=== PATIENT | male | born 1955 | race Caucasian/White ===

== ENCOUNTER 2018-03-12 05:39 | Day surgery (SDC) | payer OTHER, SELFPAY ==
[2018-03-12] VITALS (9 sets, daily range): BP systolic 131–180; BP diastolic 74–110; PULSE 60–67; RESP 16–18; TEMP 36.3–36.6; O2SAT 93–99; BMI 29.0
--- NOTE | 2018-03-12 | IMM_PTH ---
PATIENT: KATARINA DEAN LOC: EN U#:[id number] AGE/SX: 62/M ROOM: RE03/12/[address]: Dr. Humble Nascimento MD : 1955 BED: DIS: 03/12/2018 SPEC #: [id number] RECD: 03/12/18 13:51 STATUS: BASSAM REMeryl #: [id number] LUIZ: 03/12/18 00:[address]: Humble Nascimento DEPT: IMMUNOHISTOCHEMISTRY RECD BY: Mayra Hussein ENTERED: 03/12/18 13:51 SP TYPE: IMMUNO OTHR DR: Dr. Mohit Richards MD Tissues: B - Stomach, NOS Procedures: H Pylori (initial) PHYSICIAN & INSTITUTION [place] [id number] SPECIMEN INFORMATION: Tissue Source: B - Gastric antrum biopsy Clinical Info: GERD Specimen Number: [id number] CPT code: 09583 METHODOLOGY: Deparaffinized sections of prefer/formalin-fixed tissue or PAP/DQ stained slides are incubated with monoclonal/polyclonal antibodies/oligonucleotide probes. Localization is made via biotin free immunoperoxidase method. Appropriate controls are performed and reacted as expected. Results on target cell population are indicated in the following table: RESULTS: ANTIBODY / CLONE RESULT Block B H Pylori (polyclonal) negative These tests were developed and their performance characteristics determined by [facility]. They may not have been cleared or approved by the U.S. Food and Drug Administration. The FDA has determined that such clearance or approval is not necessary. INTERPRETATION: B. Gastric antrum, biopsy: Negative for Helicobacter pylori organisms. SJ:audrey 03/17/18
--- NOTE | 2018-03-12 | COLBX_PTH ---
PATIENT: KATARINA DEAN LOC: EN U#:[id number] AGE/SX: 62/M ROOM: RE03/12/[address]: Dr. Humble Nascimento MD : 1955 BED: DIS: 03/12/2018 SPEC #: [id number] RECD: 03/12/18 13:24 STATUS: BASSAM REFUGIO #: [id number] LUIZ: 03/12/18 00:[address]: Humble Nascimento DEPT: SURGICAL PATHOLOGY RECD BY: Dick Mcmahon ENTERED: 03/12/18 13:25 SP TYPE: COLON BX OTHR DR: Dr. Mohit Richards MD Tissues: A - Duodenum, NOS B - Gastric mucous membrane C - Gastric fundus D - Esophageal mucous membrane E - Esophageal mucous membrane F - Esophageal mucous membrane Procedures: Special Stain Group II Surgery Specimen Level IV Alcian Blue/PAS (control) HEADER OPERATION: EGD (MOD) PRE-OP DIAGNOSIS: GERD TISSUE SUBMITTED: A - Biopsy duodenum, B - Biopsy gastric antrum, H. pylori and path, C - Biopsy fundic polyp, D - Biopsy distal esophagus, E - Distal esophageal polyp #1, F - Biopsy distal esophageal polyp #2 MICROSCOPIC DIAGNOSIS A. Duodenum, biopsy: Fragments of duodenal mucosa with Adriane gland hyperplasia. B. Gastric antrum, biopsy: Mild gastritis. C. Fundic polyp, biopsy: Fragments of gastric mucosa with focal changes consistent with fundic gland polyp. D. Distal esophagus, biopsy: Fragments of squamous epithelium with chronic inflammation. A few detached minute fragments of gastric epithelium, negative for intestinal metaplasia (goblet cell metaplasia). See comment. E. Distal esophageal polyp #1, biopsy: Squamous papilloma. F. Distal esophageal polyp #2, biopsy: Fragments of squamous epithelium with chronic inflammation and changes consistent with gastroesophageal reflux disease. See comment. SJ:audrey 03/13/18 COMMENT B. The results of immunohistochemistry for Helicobacter pylori will be reported separately ([id number]). D. Alcian blue/PAS stain with matched control is used in the evaluation of the specimen. F. Obvious changes consistent with polyp are not seen. Case has been reviewed in consultation with Dr. Stephens who concurs with the above diagnosis. IDC:AM MICROSCOPIC DESCRIPTION Slides are reviewed. B. The specimen shows fragments of gastric mucosa with chronic inflammatory cell infiltrates in the lamina propria consisting of lymphocytes and plasma cells, consistent with mild chronic gastritis. GROSS DESCRIPTION A - Received in fixative is one container labeled with the patient's name and designated biopsy duodenum. The specimen consists of two irregular fragments of light schaefer soft tissue that in aggregate measure 0.5 x 0.2 x 0.1 cm. The specimen is totally submitted in one cassette. B - Received in fixative is one container labeled with the patient's name and designated biopsy gastric antrum. The specimen consists of one irregular fragment of light schaefer soft tissue that measures 0.7 x 0.3 x 0.1 cm. The specimen is totally submitted in one cassette. C - Received in fixative is one container labeled with the patient's name and designated fundic polyp. The specimen consists of multiple irregular fragments of light schaefer soft tissue that in aggregate measure 0.8 x 0.4 x 0.1 cm. The specimen is totally submitted in one cassette. D - Received in fixative is one container labeled with the patient's name and designated biopsy distal esophagus. The specimen consists of multiple irregular fragments of light schaefer soft tissue that in aggregate measure 0.5 x 0.5 x 0.1 cm. The specimen is totally submitted in one cassette. E - Received in fixative is one container labeled with the patient's name and designated distal esophageal polyp #1. The specimen consists of a piece of schaefer-pink polyp measuring 0.6 x 0.6 x 0.4 cm. The specimen is totally submitted in one cassette. F - Received in fixative is one container labeled with the patient's name and designated distal esophageal polyp #2. The specimen consists of multiple irregular fragments of light schaefer soft tissue that in aggregate measure 1 x 0.6 x 0.1 cm. The specimen is totally submitted in one cassette. / MARIANA:audrey 03/12/18 TC:3 CPT: 08235 x6, 11444
--- NOTE | 2018-03-12 07:01 | OP.ENDO_ITS ---
Patient Name: Mark Baldwin Procedure Date: 03/12/2018 6:08 AM Date of : 1955 Age: 62 Procedure: Upper GI endoscopy Indications: Suspected esophageal reflux Providers: Humble Nascimento MD Referring MD: Humble Nascimento MD Medicines: Midazolam 4 mg IV, Meperidine 100 mg IV Complications: No immediate complications. Procedure: Pre-Anesthesia Assessment: - Prior to the procedure, a History and Physical was performed, and patient medications and allergies were reviewed. The patient's tolerance of previous anesthesia was also reviewed. The risks and benefits of the procedure and the sedation options and risks were discussed with the patient. All questions were answered, and informed consent was obtained. Prior Anticoagulants: The patient has taken no previous anticoagulant or antiplatelet agents. ASA Grade Assessment: II - A patient with mild systemic disease. After reviewing the risks and benefits, the patient was deemed in satisfactory condition to undergo the procedure. After obtaining informed consent, the endoscope was passed under direct vision. Throughout the procedure, the patient's blood pressure, pulse, and oxygen saturations were monitored continuously. The gastroscope was introduced through the mouth, and advanced to the second part of duodenum. The upper GI endoscopy was accomplished without difficulty. The patient tolerated the procedure well. Moderate Sedation: Moderate (conscious) sedation was personally administered by the endoscopist. The following parameters were monitored: oxygen saturation, heart rate, blood pressure, and response to care. Total physician intraservice time was 15 minutes. Scope In: 6:32:40 AM Scope Out: 6:48:44 AM Total Procedure Duration Time 0 hours 16 minutes 4 seconds Findings: The Z-line was irregular and was found 40 cm from the incisors. Biopsies were taken with a cold forceps for histology. Consistent with reflux esophagitis A small hiatal hernia was present. Two polyps with no bleeding were found 39 cm from the incisors. Polypectomy was attempted, initially using a hot snare. Polyp resection was incomplete with this device. This intervention then required a different device and polypectomy technique. The polyp was removed with a hot snare. Resection and retrieval were complete. To prevent bleeding post-intervention, one hemostatic clip was successfully placed. There was no bleeding at the end of the procedure. Biopsies were taken with a cold forceps for histology. Diffuse mildly erythematous mucosa without bleeding was found in the gastric antrum. Biopsies were taken with a cold forceps for histology. Multiple sessile polyps with no bleeding and no stigmata of recent bleeding were found in the gastric fundus. Biopsies were taken with a cold forceps for histology. Diffuse mildly erythematous mucosa was found in the first portion of the duodenum. Biopsies were taken with a cold forceps for histology. Impression: - Z-line irregular, 40 cm from the incisors. Biopsied. Consistent with reflux esophagitis - Small hiatal hernia. - Esophageal polyp(s) were found. Resected and retrieved. Clip was placed. Biopsied. One pedunculated, resected with snare and treated with clip. One sessile and treated with cold forecep biopsy - Erythematous mucosa in the antrum. Biopsied. - Multiple gastric polyps. Biopsied. - Erythematous duodenopathy. Biopsied. Recommendation: - Discharge patient to home. - Resume previous diet. - Continue present medications. - Telephone my office for pathology results in 1 week. - Repeat upper endoscopy in 1 year for surveillance. Procedure Code(s): --- Professional --- 13970, Esophagogastroduodenoscopy, flexible, transoral; with removal of tumor(s), polyp(s), or other lesion(s) by snare technique 93456, 59, Esophagogastroduodenoscopy, flexible, transoral; with biopsy, single or multiple 43697, 59, Moderate sedation services provided by the same physician or other qualified health rn primary care performing the diagnostic or therapeutic service that the sedation supports, requiring the presence of an independent trained observer to assist in the monitoring of the patient's level of consciousness and physiological status; initial 15 minutes of intraservice time, patient age 5 years or older Diagnosis Code(s): --- Professional --- K22.8, Other specified diseases of esophagus K44.9, Diaphragmatic hernia without obstruction or gangrene K31.89, Other diseases of stomach and duodenum K31.7, Polyp of stomach and duodenum CPT copyright 2017 [employer]. All rights reserved. The codes documented in this report are preliminary and upon mortgage underwriter review may be revised to meet current compliance requirements. Humble Nascimento MD 03/12/2018 7:00:56 AM This report has been signed electronically. Number of Addenda: 0 Note Initiated On: 03/12/2018 6:08 AM
== END 2018-03-12 07:40 | disposition home or self-care (01) ==
LOC: EN 05:40 → AC 05:42
PROVIDERS: Family Provider Family Medicine; PCP Family Medicine; Referring Provider Surgery; Visit Provider Surgery
PROC: (CPT 43239; principal; 2018-03-12 06:25)
DX: D13.0 Benign neoplasm of esophagus (principal); K29.70 Gastritis, unspecified, without bleeding; K44.9 Diaphragmatic hernia without obstruction or gangrene; K31.7 Polyp of stomach and duodenum; K21.9 Gastro-esophageal reflux disease without esophagitis; K43.2 Incisional hernia without obstruction or gangrene; M62.08 Separation of muscle (nontraumatic), other site; M19.90 Unspecified osteoarthritis, unspecified site; E78.00 Pure hypercholesterolemia, unspecified; G47.33 Obstructive sleep apnea (adult) (pediatric); Z79.899 Other long term (current) drug therapy
CPT/HCPCS: 43239; 43251; 88305; 88313; 88342; 99152; 99153; J7120

== ENCOUNTER 2018-04-07 05:37 | Day surgery (SDC) | payer OTHER, SELFPAY ==
--- NOTE | 2018-04-02 08:11 | EKG12_ITS ---
Test Reason : PRE OP Blood Pressure : / mmHG Vent. Rate : 058 BPM Atrial Rate : 058 BPM P-R Int : 144 ms QRS Dur : 102 ms QT Int : 424 ms P-R-T Axes : 050 040 008 degrees QTc Int : 416 ms Sinus bradycardia Otherwise normal ECG Confirmed by SIDNEY SHAFER, SKIP ([id number]), editorial specialist DESTINY SAVAGE ([id number]) on 04/09/2018 1:08:48 PM Referred By: Humble Nascimento Confirmed By:SKIP LITTLE MD
[2018-04-02 08:57] LABS: Hematocrit 48.1 % (40-54); Hemoglobin 16.6 g/dl (13.0-16.5); Mean Corp Hgb Conc 34.5 g/gl (32-36); Mean Corpuscular Hgb 30.1 pg (27.0-32.0); Mean Corpuscular Volume 87.3 fL (80-94); Mean Platelet Vol. 9.5 fl (6.2-12.0); Platelet Count 251 K/mm3 (150-450); RBC Distribution Width CV 13.4 % (11.6-14.6); RBC Distribution Width SD 42.5 fl (35.1-43.9); Red Blood Count 5.51 M/mm3 (4.6-6.2); Scan Indicated on CBC? Y/N NO; White Blood Count 6.2 K/mm3 (4.4-11.0)
[2018-04-02 09:28] LABS: Anion Gap 5 (5-15); BUN 13 mg/dL (7-18); BUN/Creat Ratio 13.1 RATIO (10-20); Calcium,Total 8.8 mg/dL (8.5-10.1); Chloride 105 mmol/L (98-107); Creatinine, Serum 0.99 mg/dL (0.70-1.30); EST Glomerular Filtration Rate 82 mL/min (>60); Est Glom Filt Rate - Afr Amer 99 mL/min (>60); Glucose 101 mg/dL (74-106); Potassium 4.2 mmol/L (3.5-5.1); Sodium Level 140 mmol/L (136-145)
[2018-04-07 06:00] VITALS: BP 131/76; PULSE 69; RESP 16; TEMP 36.8; O2SAT 98; BMI 28.6
--- NOTE | 2018-04-07 06:08 | PCM.HP.STD ---
Problem List (1) Ventral incisional hernia without obstruction or gangrene Status: Acute History of Present Illness Date of Admission: 04/07/18 The patient is a 62 year old M who presents for repair of a epigastric ventral hernia. It is located just inferior to the xiphoid. There was no specific trauma. 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 High cholesterol E78.00 Obstructive sleep apnea G47.33 Allergies atorvastatin calcium [From Lipitor] Adverse Reaction (Verified 04/01/18 15:15) Other muscle cramps Home Medications: Ambulatory Orders Medication Instructions Recorded Multivitamins,Therapeutic 1 tab PO DAILY 06/17/14 [Multivitamin] Rosuvastatin Calcium [Crestor] 5 mg PO QHS 03/25/15 omeprazole magnesium 20 mg 20 mg PO BID #60 tab 03/12/18 tablet,delayed release Surgical History: Surgical History (Last Updated 03/06/18 @ 08:26 by Madai San) 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 Smoking Status: Never smoker Tobacco Use: Non-smoker Review of Systems Constitutional: Denies: Anorexia HEENT: Denies: Difficulty Swallowing Cardiovascular: Denies: Chest Pain Respiratory: Denies: Cough Gastrointestinal: Reports: Abdominal Pain, Diarrhea Genitourinary: Denies: Dysuria Endocrine: Denies: Change in Body Habitus Hematologic/ Lymphatic: Denies: Adenopathy VTE Information - Inpt Only VTE Present on Admission: No - Physical Exam General: Alert, Oriented x3, Cooperative, No apparent distress HEENT: Atraumatic Oral: Moist Mucosa Neck: Supple Lungs: Clear to auscultation Cardiovascular: Regular rate Abdomen: Bowel Sounds Present, Soft, Non Tender, - - Epigastric hernia at the xiphoid, diastases recti Extremities: No clubbing, No Calf Tenderness Neurological: Cranial nerves II-XII grossly intact Psych/Mental Status: Normal Affect Vital Signs Temp Pulse Resp BP Pulse Ox 98.2 F 69 16 131/76 H 98 04/07/18 06:00 04/07/18 06:00 04/07/18 06:00 04/07/18 06:00 04/07/18 06:00 Oxygen Delivery Method Room Air Weight: 182 lb 12.211 oz Body Mass Index (BMI) 28.6 Assessment/Plan All Active Problems (Last Updated 03/06/18 @ 08:25 by Madai San) Diastasis recti (Acute) Ventral incisional hernia without obstruction or gangrene (Acute) GERD (gastroesophageal reflux disease) (Acute) Epigastric incisional herniorrhaphy with mesh. Patient is aware of the technique, benefits, risks and alternatives. He has had an opportunity to ask and have questions answered. We will proceed as noted. Humble Nascimento M.D., F.A.C.S.
[2018-04-07] MEDS: Cefazolin 2 GM in 0.9% Normal Saline 100 ML IV (07:13)
--- NOTE | 2018-04-07 07:13 | PCM.DC.GS ---
Discharge Diet: Light diet - advance as tolerated - if you have questions about your diet instructions, please talk to you doctor. Discharge Activity: May Not Drive - for 1 week or while taking narcotic pain medicine. May shower in (days): 1 Lifting Restrictions: 10 pounds Call your doctor if your incision/area has: Continuous Slow Oozing, Sudden Increased Bleeding, Increased Pain/ Swelling, Increased Redness, Foul Smelling Discharge Call your doctor if you observe: Fever of 101 or Higher Suture Line Care: Avoid Pulling/Pushing, Avoid Pinching/Bending Additional Dressing/Incision Instructions:: Change or remove dressing in 4 days. Leave steri-strips in place for 1 week. Allergies/Adverse Reactions: Allergies atorvastatin calcium [From Lipitor] Adverse Reaction (Verified 04/01/18 15:15) Other muscle cramps Medications to take at Discharge Multivitamins,Therapeutic [Multivitamin] 1 tab PO DAILY 06/17/14 Rosuvastatin Calcium [Crestor] 5 mg PO QHS 03/25/15 omeprazole magnesium 20 mg tablet,delayed release 20 mg PO BID #60 tab 03/12/18 Famotidine [Pepcid] 20 mg PO BID #180 tablet 04/07/18 Hydrocodone Bitart/Apap 5-325 [[place] 5MG-325MG] 1 tablet PO Q4H PRN PRN 3 Days #8 tablet 04/07/18 The following prescriptions were given: Hydrocodone Bitart/Apap 5-325 [[place] 5MG-325MG] 1 tablet PO Q4H PRN PRN 3 Days #8 tablet PRN Reason: Pain Famotidine [Pepcid] 20 mg PO BID #180 tablet Primary Care Physician: Mohit Richards MD [Primary Care Provider] - Test Results: Test results from this visit will be discussed in further detail at your follow-up appointment, if applicable. Please Follow Up With: Humble Nascimento MD - [phone] When: Call to make an appointment to be seen in about 10 days.
--- NOTE | 2018-04-07 07:15 | HERN_PTH ---
PATIENT: KATARINA DEAN LOC: [facility] [place] U#:[id number] AGE/SX: 62/M ROOM: RE04/07/[address]: Dr. Humble Nascimento MD : 1955 BED: DIS: 04/07/2018 SPEC #: [id number] RECD: 04/07/18 09:20 STATUS: BASSAM REFUGIO #: [id number] LUIZ: 04/07/18 07:[address]: Humble Nascimento DEPT: SURGICAL PATHOLOGY RECD BY: Laura Schwartz ENTERED: 04/07/18 11:39 SP TYPE: Hernia OTHR DR: Dr. Mohit Richards MD Tissues: HERNIA Procedures: Surgery Specimen Level III HEADER OPERATION: Hernia, ventral repair with mesh PRE-OP DIAGNOSIS: Ventral incisional hernia without obstruction or gangrene TISSUE SUBMITTED: Lipoma and hernia contents MICROSCOPIC DIAGNOSIS Lipoma and hernia contents: Mature adipose tissue, consistent with lipoma. SJ:audrey 04/08/18 MICROSCOPIC DESCRIPTION Slides are reviewed. GROSS DESCRIPTION Received in fixative is one container labeled with the patient's name and designated lipoma and hernia contents. The specimen consists of multiple pieces of yellow adipose tissue that in aggregate measure 3.5 x 3 x 0.5 cm. Sections do not reveal any mass lesion. The entire specimen is submitted in two cassettes. / MARIANA:audrey 04/07/18 TC:1 CPT: 05413
--- NOTE | 2018-04-07 08:08 | PCM.OPRPT ---
Problem List (1) Ventral incisional hernia without obstruction or gangrene Status: Acute Report of Operation Date of Procedure: 04/07/18 Pre-Operative Diagnosis: Ventral xiphoid hernia Post-Operative Diagnosis: Same Surgery/Procedure Performed:: Ventral herniorrhaphy with onlay polypropylene mesh. Lot number [id number] expiry date 08/31/2020 Description of Surgical Findings:: Timeout and informed consent was obtained. 62-year-old gentleman was taken to the operating room. He was placed on the table. Underwent general anesthesia. The abdomen sterilely prepped and draped. Ancef 2 g given intraoperatively. 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 Transverse incision was made directly over that mass was sharply and bluntly dissected free. Most of it was lipoma that did appear to be one small fascial defect at the base. This appeared to be at a vascular supply. I did perform a subcutaneous dissection around the area particularly inferior to the xiphoid looking for any other additional potential sites for hernia. No additional sites were identified. The defect was repaired with figure 8 suture of 0 Nurolon. I placed the polypropylene mesh as an onlay. I cut a circular portion of piece of mesh placed it as an onlay and secured that in place with multiple 3-0 Ethibond sutures. I then completed the subtenons tissue back to the abdominal fascia with several interrupted 3-0 Vicryl sutures. The subdermal tissues were approximately the same. Skin edges proximate running septic or 4-0 Monocryl. The dayron-incisional areas anesthetized with 0.5% Marcaine. Total 20 cc was used. Steri-Strips Telfa and OpSite dressing applied. Sponge and instrument and needle counts were reported the surgeon be correct. Specimens include the lipoma and hernia contents. Drains none. Blood loss minimal. Humble Nascimento M.D., F.A.C.S. Type of Anesthesia:: General Anesthesiologist: Twin Vasquez
[2018-04-07] MEDS: Bupivacaine Mpf 0.5% 30 ML VIAL (08:10)
[2018-04-07 08:19] VITALS: BP 124/67; BP 131/76; PULSE 67; RESP 16; TEMP 36.5; O2SAT 96
[2018-04-07 08:30] VITALS: BP 125/69; BP 131/76; PULSE 65; RESP 16; O2SAT 96
[2018-04-07 08:43] VITALS: BP 119/76; BP 131/76; PULSE 64; RESP 16; TEMP 36.4; O2SAT 96
[2018-04-07 09:49] VITALS: BP 131/76; BP 145/82; PULSE 62; RESP 16; TEMP 36.2; O2SAT 100
== END 2018-04-07 10:02 | disposition home or self-care (01) ==
LOC: SDC 05:38 → AC 05:39
PROVIDERS: Family Provider Family Medicine; PCP Family Medicine; Referring Provider Surgery; Visit Provider Surgery
PROC: (CPT 49560; principal; 2018-04-07 07:00)
DX: K43.2 Incisional hernia without obstruction or gangrene (principal); M19.90 Unspecified osteoarthritis, unspecified site; K21.9 Gastro-esophageal reflux disease without esophagitis; E78.00 Pure hypercholesterolemia, unspecified; N40.0 Benign prostatic hyperplasia without lower urinary tract symptoms; G47.33 Obstructive sleep apnea (adult) (pediatric); M62.08 Separation of muscle (nontraumatic), other site; Z79.899 Other long term (current) drug therapy; R00.1 Bradycardia, unspecified; D17.5 Benign lipomatous neoplasm of intra-abdominal organs
CPT/HCPCS: 00752; 49560; 49568; 36415; 80048; 85027; 88302; 88304; 93005; J7120; C1781; J2405

== ENCOUNTER → 2018-12-09 | Outpatient (CLI) | payer OTHER, SELFPAY ==
[2018-12-09 09:01] VITALS: BMI 28.6
[2018-12-09 12:14] LABS: Absolute Lymphocyte Count 1.15 X10^3/ul (0.83-4.51); Absolute Neutrophil Count 3.8 X10^3/uL (2.0-7.7); Basophil# 0.01 X10^3/uL; Basophil% 0.2 % (0-1); Eosinophil# 0.07 X10^3/uL; Eosinophils% 1.3 % (0-5); Hematocrit 51.1 % (40-54); Hemoglobin 17.7 g/dl (13.0-16.5); Lymphocyte # 1.15 X10^3/ul (4.0); Lymphocyte % 20.5 % (19-41); Mean Corp Hgb Conc 34.6 g/gl (32-36); Mean Corpuscular Hgb 29.6 pg (27.0-32.0); Mean Corpuscular Volume 85.6 fL (80-94); Mean Platelet Vol. 9.7 fl (6.2-12.0); Monocyte# 0.54 X10^3/uL; Monocyte% 9.6 % (0-10); Neutrophil # 3.82 X10^3/uL (2.7-7.7); Neutrophil % 68.2 % (47-70); Platelet Count 252 K/mm3 (150-450); RBC Distribution Width CV 13.6 % (11.6-14.6); RBC Distribution Width SD 42.3 fl (35.1-43.9); Red Blood Count 5.97 M/mm3 (4.6-6.2); White Blood Count 5.6 K/mm3 (4.4-11.0)
[2018-12-09 12:19] LABS: POSITIVE COUNT NO; POSITIVE DIFFERENTIAL NO; POSITIVE MORPHOLOGY NO
[2018-12-09 12:24] LABS: BUN 17 mg/dL (7-18); Creatinine, Serum 1.01 mg/dL (0.70-1.30); EST Glomerular Filtration Rate 80 mL/min (>60); Glucose 95 mg/dL (74-106)
[2018-12-09 12:25] LABS: ALB/GLOB Ratio 1.3 RATIO (0.9-2.4); AST(SGOT) 19 U/L (15-37); Alanine Aminotransfer ALT/SGPT 42 U/L (16-61); Albumin, Serum 4.2 g/dL (3.2-5.0); Alkaline Phosphatase 108 U/L (45-117); Anion Gap 7 (5-15); BUN/Creat Ratio 16.8 RATIO (10-20); Calcium,Total 9.2 mg/dL (8.5-10.1); Chloride 104 mmol/L (98-107); Cholesterol 154 mg/dL (200); Est Glom Filt Rate - Afr Amer 97 mL/min (>60); Globulin 3.3 g/dL (2.2-4.2); High Density Lipoprotein 36 mg/dL; PSA,Total - Annual Screen 5.21 ng/mL (0.00-4.00); Potassium 4.2 mmol/L (3.5-5.1); Protein, Total 7.5 g/dL (6.4-8.2); Sodium Level 139 mmol/L (136-145); Triglycerides 84 mg/dL; Very Low Density Lipoprotein 17 mg/dL (5-40)
== END | disposition home or self-care (01) ==
LOC: BIMLAB 09:34
PROVIDERS: Family Provider Family Medicine; PCP Internal Medicine; Visit Provider Internal Medicine
DX: E78.5 Hyperlipidemia, unspecified (principal); K21.9 Gastro-esophageal reflux disease without esophagitis; G47.33 Obstructive sleep apnea (adult) (pediatric); N40.0 Benign prostatic hyperplasia without lower urinary tract symptoms
CPT/HCPCS: 36415; 80053; 80061; 84153; 85025; G0103

== ENCOUNTER 2019-01-06 11:00 | Outpatient (RCR) | payer OTHER, SELFPAY ==
[2018-12-09 09:01] VITALS: BMI 28.6
--- NOTE | 2019-01-06 11:44 | HP.PTEVAL ---
Patient's Visit Information KATARINA DEAN is a 63 year old M referred to Physical Therapy by Mylene Maguire MD with a diagnosis of L shoulder pain. Date of Evaluation: 12/09/18 Physical Therapist: Mario Prakash DPT - Visit Plan Frequency: 1x/Week Duration: 4 Weeks Plan: Start with eccentric loading of biceps tendon, DFM to biceps, full biceps strengtheing and RTC stability exercises. - Subjective Findings: Pt. is here today for his initial evaluation with diagnosis of L shoulder pain. Pt. reports having pain since june without mech of injury. He talked to his PA friend and was given seom RTC strengthening exercises which did not help much. Pt. reports having anterior shoulder pain. No N/T in her arm, but pain does extend down his arm into the biceps region. Pt. has mild subacromial pain. No scapular pain and no pain in his neck. Pt. reports no weakness, but does have pain with reaching across his body, out in front and over head. Pt. is able to sleep without much pain. Pt. is hopeful to get back to all of his exercises without issues allowing return to all recreational activities without limitations. - Pain L shoulder Pain Intensity (Out of 10): 2 Pain Intensity Range: 1, 4 - Objective POSTURE: Pt. has sligth FH posture with increased protracted scapulea. PALPATION: Pt. has increased tenderness at bicipital groove and mild soreness at subacromial space. NEURO: normal throughout. ROM: L shoulder full ROM, mild increase in symptoms with end range extension and mid range flexion/abd. Mild increase with full shoulder functional IR. MMT: Pt. has 5-/5 throughot RTC and biceps (mild increase NW). full deltoid strenth without increase in symptoms. - Special Tests L Shoulder Empty Can - SS: Negative L Shoulder Belly Press - SupScap: Negative L Shoulder Neer - Impingement: Negative L Shoulder Duarte Mc - Impingement: Negative L Shoulder Biceps Load Test - Labrum: Positive L Shoulder Speeds Test - Labrum/Biceps: Positive - Goals Goal 1:: Pt. to be I with HEP. Goal Time Frame: 4-6 Weeks Goal 2:: Pt. 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 Goal Time Frame: 4-6 Weeks Goal 3:: Pt. to have no pain at rest. Goal Time Frame: 4-6 Weeks Goal 4:: Pt. to be able to lift household objects overhead without increase in symptoms. Goal Time Frame: 4-6 Weeks - Rehabilitation Potential Physical Therapy Diagnosis: Pt. appears to have bicipital tendonopathy of proximal L tendon. Pt. is tender in this region and has pain with speeds testing and applying increased tension to bicepital tendon. He does not have expected weakness that coincides with a tear and RTC is painless and strong. Rehabilitation Potential: Excellent - Anticipated Interventions Patient/Client Instruction: Educate patient on: Condition, Plan of Care, Risk Factors, Benefits of Fitness Program For the Purpose of:: To facilitate caregiver knowledge, To improve self management, To prevent re-injury, To improve ability to perform tasks related to life management, To improve tolerance to ADL's Therapeutic Exercise to Include: Strength training, Power training, Postural training, Flexibilty training, Passive ROM, Active ROM, Magdy Exercises, Scapular Strength/Stabilization For the Purpose of:: To decrease pain, To decrease swelling/inflammation, To increase ROM, To improve nutrient delivery to tissue, To improve muscle performance and motor function, To improve health of tissue, To decrease soft tissue restriction, To increase flexibility/ROM Manual Therapy Techniques to Include: Mobilization, Passive ROM, Soft tissue mobilization For the Purpose of:: To decrease pain, To decrease swelling/inflammation, To increase ROM, To improve nutrient delivery to tissue Thank you for the opportunity to evaluate your patient. For Medicare and Medicare HMO plans, please review the plan of care and approve it. It will need to be FAXED BACK to us at [phone] for Medicare purposes. For Medicare only, by signing this I certify the plan of care. Please let me know if there are questions or concerns regarding this plan of care. Physician Signature: Date:
--- NOTE | 2019-01-06 11:53 | HP.PTREVAL ---
Mylene Maguire MD, It has been my pleasure to treat KATARINA DEAN over the last 2 visits for L shoulder pain. Please see the progress note below for an update on the physical therapy plan of care! Subjective: Pt. reports I was feeling a lot better after the first 15 days or so, but then I stopped doing my exercises. I got busy with other things. pt. reports having overall decreased symptoms with palpation of bicipital region, but still has pain with many daily activities. not excruciating, but I feel it. Objective/Function: Pt. to contiune with above exercises for HEP. Pt. has overall slight improved symptms,but has not been consistent with exercises at home. I added a few exercises to stess proximal tendon. Plan Plan: Pt. to contiue with exercises on own at this point in time. He is to follow up in a few weeks with PT if needed. I urged him to continue with deep friction massage and eccentric strengthening. Pt. consents. If I do not hear form him in ~4 weeks I will DC back to physician. Goals Goal 1:: Pt. to be I with HEP. Goal Time Frame: 4-6 Weeks Goal Progress: Goal Met Goal 2:: Pt. 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 Goal Time Frame: 4-6 Weeks Goal Progress: Progressing Goal 3:: Pt. to have no pain at rest. Goal Time Frame: 4-6 Weeks Goal Progress: Progressing Goal 4:: Pt. to be able to lift household objects overhead without increase in symptoms. Goal Time Frame: 4-6 Weeks Goal Progress: Progressing Anticipated Interventions Patient/Client Instruction: Educate patient on: Condition, Plan of Care, Risk Factors, Benefits of Fitness Program For the Purpose of:: To facilitate caregiver knowledge, To improve self management, To prevent re-injury, To improve ability to perform tasks related to life management, To improve tolerance to ADL's Therapeutic Exercise to Include: Strength training, Power training, Postural training, Flexibilty training, Passive ROM, Active ROM, Magdy Exercises, Scapular Strength/Stabilization For the Purpose of:: To decrease pain, To decrease swelling/inflammation, To increase ROM, To improve nutrient delivery to tissue, To improve muscle performance and motor function, To improve health of tissue, To decrease soft tissue restriction, To increase flexibility/ROM Manual Therapy Techniques to Include: Mobilization, Passive ROM, Soft tissue mobilization For the Purpose of:: To decrease pain, To decrease swelling/inflammation, To increase ROM, To improve nutrient delivery to tissue Please do not hesitate to contact me at [phone] by phone or if you have questions or concerns regarding this new plan of care! Sincerely, ADAM ToroT
== END 2019-01-06 19:00 | disposition home or self-care (01) ==
LOC: PT 11:00
PROVIDERS: Family Provider Internal Medicine; PCP Internal Medicine; Referring Provider Internal Medicine; Visit Provider Internal Medicine
DX: M25.512 Pain in left shoulder (principal)
CPT/HCPCS: 97110; 97161

== ENCOUNTER → 2019-09-15 | Outpatient (CLI) | payer OTHER, SELFPAY ==
[2019-09-15 08:18] VITALS: BMI 28.5
[2019-09-15 13:28] LABS: PSA,Total- Diagnostic 5.96 ng/mL (0.0-4.0)
== END | disposition home or self-care (01) ==
LOC: LABSPEC 12:54
PROVIDERS: PCP Internal Medicine; Referring Provider Internal Medicine; Visit Provider Internal Medicine
DX: N40.0 Benign prostatic hyperplasia without lower urinary tract symptoms (principal)
CPT/HCPCS: 84153

== ENCOUNTER → 2019-12-15 08:28 | Outpatient (CLI) | payer OTHER, SELFPAY ==
[2019-06-16 09:02] VITALS: BMI 28.5
[2019-12-15 08:01] VITALS: BMI 28.5
[2019-12-15 12:27] LABS: Absolute Lymphocyte Count 1.34 X10^3/uL (0.83-4.51); Absolute Neutrophil Count 3.7 X10^3/uL (2.0-7.7); Basophil# 0.02 X10^3/uL; Basophil% 0.3 % (0-1); Eosinophils% 3.4 % (0-5); Hematocrit 51.1 % (40-54); Hemoglobin 17.1 g/dL (13.0-16.5); Lymphocyte # 1.34 X10^3/ul (4.0); Lymphocyte % 22.6 % (19-41); Mean Corp Hgb Conc 33.5 g/dL (32-36); Mean Corpuscular Hgb 29.8 pg (27.0-32.0); Mean Platelet Vol. 9.6 fl (6.2-12.0); Monocyte# 0.71 X10^3/uL; NRBC Flagged by Analyzer 0 % (0-5); Neutrophil # 3.65 X10^3/uL (2.7-7.7); Neutrophil % 61.4 % (47-70); Platelet Count 255 K/mm3 (150-450); RBC Distribution Width CV 12.9 % (11.6-14.6); RBC Distribution Width SD 41.7 fl (35.1-43.9); Red Blood Count 5.74 M/mm3 (4.6-6.2); White Blood Count 5.9 K/mm3 (4.4-11.0)
[2019-12-15 12:44] LABS: ALB/GLOB Ratio 1.2 RATIO (0.9-2.4); AST(SGOT) 18 U/L (15-37); Alanine Aminotransfer ALT/SGPT 46 U/L (16-61); Albumin, Serum 4.1 g/dL (3.2-5.0); Alkaline Phosphatase 95 U/L (45-117); Anion Gap 5 (5-15); BUN 15 mg/dL (7-18); BUN/Creat Ratio 14.4 RATIO (10-20); Chloride 104 mmol/L (98-107); Cholesterol 127 mg/dL (200); Creatinine, Serum 1.04 mg/dL (0.70-1.30); EST Glomerular Filtration Rate 77 mL/min (>60); Est Glom Filt Rate - Afr Amer 93 mL/min (>60); Globulin 3.4 g/dL (2.2-4.2); Glucose 93 mg/dL (74-106); High Density Lipoprotein 35 mg/dL; PSA,Total - Annual Screen 6.08 ng/mL (0.00-4.00); Potassium 4.4 mmol/L (3.5-5.1); Protein, Total 7.5 g/dL (6.4-8.2); Sodium Level 139 mmol/L (136-145); Triglycerides 79 mg/dL; Very Low Density Lipoprotein 16 mg/dL (5-40)
--- NOTE | 2019-12-15 13:20 | EKG12_ITS ---
Test Reason : FAMILY HX Blood Pressure : / mmHG Vent. Rate : 063 BPM Atrial Rate : 063 BPM P-R Int : 144 ms QRS Dur : 104 ms QT Int : 406 ms P-R-T Axes : 054 041 033 degrees QTc Int : 415 ms Normal sinus rhythm Normal ECG Confirmed by BRYNN SHAFER, MARÍA ([id number]), book or script editor FAHAD ANSARI ([id number]) on 12/16/2019 1:05:43 PM Referred By: Mylene Maguire Confirmed By:MARÍA SWAIN MD
== END ==
PROVIDERS: Family Provider Internal Medicine; PCP Internal Medicine; Referring Provider Internal Medicine; Visit Provider Internal Medicine
DX: Z00.00 Encounter for general adult medical examination without abnormal findings (principal); K21.9 Gastro-esophageal reflux disease without esophagitis; I10 Essential (primary) hypertension
CPT/HCPCS: 36415; 80053; 80061; 84153; 85025; 93005; G0103

== ENCOUNTER → 2020-06-23 20:00 | Outpatient (CLI) | payer OTHER, SELFPAY ==
[2020-03-16 09:04] VITALS: BMI 28.5
[2020-06-22 09:05] VITALS: BMI 28.3
== END ==
PROVIDERS: PCP Internal Medicine; Visit Provider Nurse Practitioner Acute Care
DX: G47.33 Obstructive sleep apnea (adult) (pediatric) (principal)
CPT/HCPCS: 95811

== ENCOUNTER 2020-07-05 05:31 | Day surgery (SDC) | payer OTHER, SELFPAY ==
[2020-06-22 09:05] VITALS: BMI 28.3
[2020-07-04 10:39] LABS: PSA,Total- Diagnostic 5.43 ng/mL (0.0-4.0)
[2020-07-05] VITALS (12 sets, daily range): BP systolic 104–146; BP diastolic 60–104; PULSE 55–64; RESP 16; TEMP 35.8–36.9; O2SAT 96–100; BMI 27.7
[2020-07-05] MEDS: Lactated Ringers 1,000 ML 100 ML IV (06:08)
--- NOTE | 2020-07-05 06:15 | PCM.HP.STD ---
Problem List (1) Screening for intestinal cancer Status: Acute History of Present Illness Date of Admission: 07/05/20 The patient is a 64 year old M who presents for screening colonoscopy today. Previous one was in 2008. He denies bright red blood per rectum or melena. No abdominal pain. No unexpected weight loss. Past Medical History Past Medical History (Chronic Problems): Chronic Problems (Last Reviewed 06/22/20 @ 09:04 by Selin Pierre) Hypertension (Chronic) Elevated BP without diagnosis of hypertension (Chronic) Hyperlipidemia (Chronic) Left shoulder pain (Chronic) GERD (gastroesophageal reflux disease) (Chronic) Arthritis (Chronic) Obstructive sleep apnea (Chronic) AHI 17, CPAP 9 cm of water by nasal interface BPH (benign prostatic hyperplasia) (Chronic) Cardiac dysrhythmia (Chronic) Cor athrscl-uns vessel (Chronic) High cholesterol (Chronic) Medical History: Medical History (Last Reviewed 06/22/20 @ 09:04 by Selin Pierre) Elevated BP without diagnosis of hypertension (Chronic) R03.0 Diastasis recti (Acute) M62.08 Ventral incisional hernia without obstruction or gangrene (Resolved) K43.2 GERD (gastroesophageal reflux disease) (Chronic) K21.9 Arthritis (Chronic) M19.90 Obstructive sleep apnea (Chronic) G47.33 AHI 17, CPAP 9 cm of water by nasal interface BPH (benign prostatic hyperplasia) (Chronic) N40.0 Cardiac dysrhythmia (Chronic) I49.9 Cor athrscl-uns vessel (Chronic) I25.10 High cholesterol (Chronic) E78.00 Right knee meniscal tear S83.206A Allergies atorvastatin calcium [From Lipitor] Adverse Reaction (Verified 07/05/20 05:50) Other muscle cramps Home Medications: Ambulatory Orders Medication Instructions Recorded Multivitamins,Therapeutic 1 tab PO DAILY 06/17/14 [Multivitamin] rosuvastatin 10 mg tablet 5 mg PO QHS #90 tab 09/15/19 meloxicam 15 mg tablet 15 mg PO PRN PRN 03/16/20 famotidine 20 mg tablet 20 mg PO BID #180 tab 05/19/20 amlodipine 10 mg tablet 10 mg PO DAILY #90 tab 06/04/20 Surgical History: Surgical History (Last Reviewed 06/22/20 @ 09:04 by Selin Pierre) History of bilateral hip replacements Z96.643 History of tonsillectomy and adenoidectomy Z98.890 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 S/P ventral herniorrhaphy Onset Date: ~04/07/18 Z98.890, Z87.19 Smoking Status: Never smoker Tobacco Use: Non-smoker Review of Systems Constitutional: Denies: Chills, Fever Cardiovascular: Denies: Chest Pain Respiratory: Denies: Cough, Shortness of Breath Gastrointestinal: Denies: Abdominal Pain, Hematochezia, Melena Endocrine: Denies: Change in Body Habitus VTE Information - Inpt Only VTE Present on Admission: No Patient Problems: Active and Suspected Problems (Last Reviewed 06/22/20 @ 09:04 by Selin Pierre) Screening for intestinal cancer (Acute) - Physical Exam Vitals/I&O's: Vital Signs Temp Pulse Resp BP Pulse Ox 97.0 F L 64 16 128/79 H 98 07/05/20 05:51 07/05/20 05:51 07/05/20 05:51 07/05/20 05:51 07/05/20 05:51 Oxygen Delivery Method Room Air Weight: 177 lb Body Mass Index (BMI) 27.7 General: Alert, Oriented x3, Cooperative, No apparent distress Oral: Moist Mucosa Neck: Supple Lungs: Clear to auscultation, Normal air movement Cardiovascular: Regular rate, Regular Rhythm Abdomen: Bowel Sounds Present, Soft, Non Tender Extremities: No edema Psych/Mental Status: Normal Affect Microbiology Past 72 Hours 07/04/20 09:00 Interface Orders SARS-CoV-2 Antigen (Rapid) - Final Laboratory Results 07/04/20 09:24: Total PSA 5.43 H Current Medications Lactated Ringer's () 1,000 mls @ 100 mls/hr IV .Q10H PAVAN Last Admin: 07/05/20 06:08 Dose: 100 mls/hr Documented by: Assessment/Plan All Active Problems (Last Reviewed 06/22/20 @ 09:04 by Selin Pierre) Screening for intestinal cancer (Acute) Diastasis recti (Acute) Ventral incisional hernia without obstruction or gangrene (Resolved) Plan to proceed with a screening colonoscopy with possible biopsy or polypectomy is indicated. The patient is aware of the technique, benefit, risk, alternatives. He presents via open access today. He believes that the bowel prep is worked well. We will proceed as noted. Humble Nascimento M.D., F.A.C.S.
--- NOTE | 2020-07-05 06:30 | COLBX_PTH ---
PATIENT: KATARINA DEAN LOC: EN U#:[id number] AGE/SX: 64/M ROOM: RE07/05/[address]: Dr. Humble Nascimento MD : 1955 BED: DIS: 07/05/2020 SPEC #: [id number] RECD: 07/05/20 10:11 STATUS: BASSAM SANTANAMeryl #: [id number] LUIZ: 07/05/20 06:[address]: Humble Nascimento DEPT: SURGICAL PATHOLOGY RECD BY: Jade Navas ENTERED: 07/05/20 13:58 SP TYPE: COLON BX OTHR DR: MD Dr. Tom Calabrese MD Tissues: Sigmoid colon biopsy Procedures: Surgery Specimen Level IV HEADER OPERATION: Colonoscopy - open access (MOD) PRE-OP DIAGNOSIS: Screening; diastasis recti TISSUE SUBMITTED: Proximal sigmoid biopsy MICROSCOPIC DIAGNOSIS Proximal sigmoid colon, biopsy: Ulceration with associated acute and chronic inflammation and granulation. AM:audrey 07/06/2020 MICROSCOPIC DESCRIPTION Slides are reviewed. GROSS DESCRIPTION Received in fixative is one container labeled with the patient's name and designated proximal sigmoid biopsy. The specimen consists of multiple irregular fragments of light schaefer soft tissue that in aggregate measure 2 x 1 x 0.1 cm. The specimen is totally submitted in one cassette. / AM:audrey 07/05/20 TC:2 CPT: 29074
--- NOTE | 2020-07-05 07:06 | OP.COLON_ITS ---
Patient Name: Mark Baldwin Procedure Date: 07/05/2020 6:08 AM Date of : 1955 Age: 64 Procedure: Colonoscopy Indications: Screening for colorectal malignant neoplasm Providers: Humble Nascimento MD Referring MD: Mylene Maguire MD Medicines: Midazolam 5 mg IV, Meperidine 125 mg IV Patient Profile: Last Colonoscopy: 2008. Complications: No immediate complications. Procedure: Pre-Anesthesia Assessment: - Prior to the procedure, a History and Physical was performed, and patient medications and allergies were reviewed. The patient's tolerance of previous anesthesia was also reviewed. The risks and benefits of the procedure and the sedation options and risks were discussed with the patient. All questions were answered, and informed consent was obtained. Prior Anticoagulants: The patient has taken no previous anticoagulant or antiplatelet agents. ASA Grade Assessment: II - A patient with mild systemic disease. After reviewing the risks and benefits, the patient was deemed in satisfactory condition to undergo the procedure. After I obtained informed consent, the scope was passed under direct vision. Throughout the procedure, the patient's blood pressure, pulse, and oxygen saturations were monitored continuously. The colonoscope was introduced through the anus and advanced to the cecum, identified by appendiceal orifice and ileocecal valve. The colonoscopy was performed without difficulty. The patient tolerated the procedure well. The quality of the bowel preparation was good. The ileocecal valve and the appendiceal orifice were photographed. Moderate Sedation: Moderate (conscious) sedation was personally administered by the endoscopist. The following parameters were monitored: oxygen saturation, heart rate, blood pressure, and response to care. Total physician intraservice time was 18 minutes. Scope In: 6:33:03 AM Scope Withdrawal Time 0 hours 17 minutes 39 seconds Scope Out: 6:56:04 AM Total Procedure Duration Time 0 hours 23 minutes 1 second Findings: The digital rectal exam findings include non-thrombosed external hemorrhoids, non-thrombosed internal hemorrhoids, internal hemorrhoids that prolapse with straining, but spontaneously regress to the resting position (Grade II) and enlarged prostate. Multiple diverticula were found in the entire colon. A 8 mm mucosal fullness protruding from a diverticulum was found in the proximal sigmoid colon. Forceps were used to sample this area and some of the mucosa was gently debrided with a snare that was used cold. Did not extend down into the diverticulum. [place] like mucosa and had very little texture. Resection and retrieval were complete. Area was tattooed with an injection of 0.8 mL of Ashly ink. The exam was otherwise without abnormality. Impression: - Non-thrombosed external hemorrhoids, non-thrombosed internal hemorrhoids, internal hemorrhoids that prolapse with straining, but spontaneously regress to the resting position (Grade II) and enlarged prostate found on digital rectal exam. - Diverticulosis in the entire examined colon. - One 8 mm mucosa inversion in the proximal sigmoid colon at site of diverticulosis, possible inversion of mucosa. Area superficially sampled and tattooed. - The examination was otherwise normal. Recommendation: - Discharge patient to home. - Resume previous diet. - Continue present medications. - Telephone my office for pathology results in 1 week. - Repeat colonoscopy in 10 years for screening purposes. Procedure Code(s): --- Professional --- 07279, Colonoscopy, flexible; with removal of tumor(s), polyp(s), or other lesion(s) by snare technique 61560, Colonoscopy, flexible; with directed submucosal injection(s), any substance 22904, 59, Moderate sedation services provided by the same physician or other qualified health childcare center director performing the diagnostic or therapeutic service that the sedation supports, requiring the presence of an independent trained observer to assist in the monitoring of the patient's level of consciousness and physiological status; initial 15 minutes of intraservice time, patient age 5 years or older Diagnosis Code(s): --- Professional --- Z12.11, Encounter for screening for malignant neoplasm of colon K64.1, Second degree hemorrhoids K64.4, Residual hemorrhoidal skin tags D12.5, Benign neoplasm of sigmoid colon N40.0, Benign prostatic hyperplasia without lower urinary tract symptoms K57.30, Diverticulosis of large intestine without perforation or abscess without bleeding CPT copyright 2017 [employer]. All rights reserved. The codes documented in this report are preliminary and upon it technician review may be revised to meet current compliance requirements. Humble Nascimento MD 07/05/2020 7:06:15 AM This report has been signed electronically. Number of Addenda: 0 Note Initiated On: 07/05/2020 6:08 AM
--- NOTE | 2020-07-05 07:07 | OP.CCLET_ITS ---
07/05/2020 Mylene Maguire MD [address] [place] [address] [place] [address] Re : Colonoscopy procedure for Mark Baldwin Dear Dr. Maguire This procedure was performed on Sunday, July 05, 2020. My impressions and recommendations are as follows: Impressions : - Non-thrombosed external hemorrhoids, non-thrombosed internal hemorrhoids, internal hemorrhoids that prolapse with straining, but spontaneously regress to the resting position (Grade II) and enlarged prostate found on digital rectal exam. - Diverticulosis in the entire examined colon. - One 8 mm mucosa inversion in the proximal sigmoid colon at site of diverticulosis, possible inversion of mucosa. Area superficially sampled and tattooed. - The examination was otherwise normal. Recommendations : - Discharge patient to home. - Resume previous diet. - Continue present medications. - Telephone my office for pathology results in 1 week. - Repeat colonoscopy in 10 years for screening purposes. My findings are described in the full procedure note, which is enclosed. If I can be of further assistance, please feel free to contact me at Doctor phone number(s): Work: . Sincerely, Humble Nascimento MD 07/05/2020 7:06:15 AM This report has been signed electronically.
== END 2020-07-05 07:41 | disposition home or self-care (01) ==
LOC: EN 05:32 → AC 05:32
PROVIDERS: PCP Internal Medicine; Referring Provider Internal Medicine; Visit Provider Surgery
PROC: 0DJD8ZZ Inspection of Lower Intestinal Tract, Via Natural or Artificial Opening Endoscopic (ICD-10-PCS; CPT 45378; principal; 2020-07-05 06:25)
DX: Z12.11 Encounter for screening for malignant neoplasm of colon (principal); K63.3 Ulcer of intestine; K64.1 Second degree hemorrhoids; K64.4 Residual hemorrhoidal skin tags; K57.30 Diverticulosis of large intestine without perforation or abscess without bleeding; K43.2 Incisional hernia without obstruction or gangrene; Z20.828 Contact with and (suspected) exposure to other viral communicable diseases; I10 Essential (primary) hypertension; E78.5 Hyperlipidemia, unspecified; K21.9 Gastro-esophageal reflux disease without esophagitis; M19.90 Unspecified osteoarthritis, unspecified site; G47.33 Obstructive sleep apnea (adult) (pediatric); N40.0 Benign prostatic hyperplasia without lower urinary tract symptoms; E78.00 Pure hypercholesterolemia, unspecified; I25.10 Atherosclerotic heart disease of native coronary artery without angina pectoris; Z79.899 Other long term (current) drug therapy
CPT/HCPCS: 45381; 45385; 36415; 84153; 87426; 88305; 99152; 99153; C9803; J7120; A4648

== ENCOUNTER → 2020-10-18 08:19 | Outpatient (CLI) | payer OTHER, SELFPAY ==
[2020-10-13 14:04] VITALS: BMI 27.7
[2020-10-18 12:31] LABS: Absolute Lymphocyte Count 1.47 X10^3/uL (0.83-4.51); Absolute Neutrophil Count 2.7 X10^3/uL (2.0-7.7); Basophil# 0.04 X10^3/uL; Basophil% 0.8 % (0-1); Eosinophil# 0.19 X10^3/uL; Eosinophils% 3.9 % (0-5); Hemoglobin 16.7 g/dL (13.0-16.5); Lymphocyte # 1.47 X10^3/ul (0.83-4.51); Lymphocyte % 30.1 % (19-41); Mean Corp Hgb Conc 33.4 g/dL (32-36); Mean Corpuscular Hgb 29.6 pg (27.0-32.0); Mean Corpuscular Volume 88.7 fL (80-94); Mean Platelet Vol. 9.8 fl (6.2-12.0); Monocyte# 0.51 X10^3/uL; Monocyte% 10.4 % (0-10); NRBC Flagged by Analyzer 0 % (0-5); Neutrophil # 2.66 X10^3/uL (2.7-7.7); Neutrophil % 54.4 % (47-70); Platelet Count 304 K/mm3 (150-450); RBC Distribution Width CV 12.8 % (11.6-14.6); RBC Distribution Width SD 41.5 fl (35.1-43.9); Red Blood Count 5.64 M/mm3 (4.6-6.2); White Blood Count 4.9 K/mm3 (4.4-11.0)
[2020-10-18 13:00] LABS: ALB/GLOB Ratio 1.1 RATIO (0.9-2.4); AST(SGOT) 19 U/L (15-37); Alanine Aminotransfer ALT/SGPT 29 U/L (16-61); Albumin, Serum 3.7 g/dL (3.2-5.0); Alkaline Phosphatase 108 U/L (45-117); Anion Gap 3 (5-15); BUN 14 mg/dL (7-18); BUN/Creat Ratio 14.1 RATIO (10-20); Chloride 106 mmol/L (98-107); Cholesterol 108 mg/dL (200); EST Glomerular Filtration Rate 81 mL/min (>60); Est Glom Filt Rate - Afr Amer 98 mL/min (>60); Globulin 3.5 g/dL (2.2-4.2); Glucose 93 mg/dL (74-106); High Density Lipoprotein 35 mg/dL; Potassium 4.3 mmol/L (3.5-5.1); Protein, Total 7.2 g/dL (6.4-8.2); Sodium Level 140 mmol/L (136-145); Triglycerides 48 mg/dL; Very Low Density Lipoprotein 10 mg/dL (5-40)
[2020-10-25 14:09] LABS: Testosterone, Free 16.65 ng/dL (5.00-21.00)
[2020-10-25 18:53] LABS: Testosterone, % Free 2.99 % (1.50-4.20); Testosterone, Total 557 ng/dL (264-916)
== END ==
PROVIDERS: PCP Internal Medicine; Referring Provider Internal Medicine; Visit Provider Internal Medicine
DX: E78.5 Hyperlipidemia, unspecified (principal); I10 Essential (primary) hypertension; G47.33 Obstructive sleep apnea (adult) (pediatric); R79.89 Other specified abnormal findings of blood chemistry
CPT/HCPCS: 36415; 80053; 80061; 84402; 84403; 85025

== ENCOUNTER → 2021-04-19 08:57 | Outpatient (CLI) | payer OTHER, SELFPAY ==
[2021-04-19 12:38] LABS: Absolute Lymphocyte Count 1.18 X10^3/uL (0.83-4.51); Absolute Neutrophil Count 4.2 X10^3/uL (2.0-7.7); Basophil# 0.04 X10^3/uL; Basophil% 0.7 % (0-1); Eosinophils% 1.6 % (0-5); Hematocrit 48.5 % (40-54); Hemoglobin 16.2 g/dL (13.0-16.5); Lymphocyte # 1.18 X10^3/ul (0.83-4.51); Lymphocyte % 19.4 % (19-41); Mean Corp Hgb Conc 33.4 g/dL (32-36); Mean Corpuscular Hgb 29.8 pg (27.0-32.0); Mean Corpuscular Volume 89.2 fL (80-94); Mean Platelet Vol. 9.8 fl (6.2-12.0); Monocyte# 0.54 X10^3/uL; Monocyte% 8.9 % (0-10); NRBC Flagged by Analyzer 0 % (0-5); Neutrophil # 4.21 X10^3/uL (2.7-7.7); Neutrophil % 69.2 % (47-70); Platelet Count 264 K/mm3 (150-450); RBC Distribution Width CV 13.6 % (11.6-14.6); RBC Distribution Width SD 44.1 fl (35.1-43.9); Red Blood Count 5.44 M/mm3 (4.6-6.2); White Blood Count 6.1 K/mm3 (4.4-11.0)
[2021-04-19 12:53] LABS: ALB/GLOB Ratio 1.1 RATIO (0.9-2.4); AST(SGOT) 17 U/L (15-37); Alanine Aminotransfer ALT/SGPT 47 U/L (16-61); Albumin, Serum 3.7 g/dL (3.2-5.0); Alkaline Phosphatase 90 U/L (45-117); Anion Gap 4 (5-15); BUN 16 mg/dL (7-18); BUN/Creat Ratio 16.3 RATIO (10-20); Calcium,Total 9.1 mg/dL (8.5-10.1); Chloride 106 mmol/L (98-107); Creatinine, Serum 0.98 mg/dL (0.70-1.30); EST Glomerular Filtration Rate 82 mL/min (>60); Est Glom Filt Rate - Afr Amer 99 mL/min (>60); Globulin 3.5 g/dL (2.2-4.2); Glucose 124 mg/dL (74-106); Potassium 3.8 mmol/L (3.5-5.1); Protein, Total 7.2 g/dL (6.4-8.2); Sodium Level 139 mmol/L (136-145)
== END ==
PROVIDERS: PCP Internal Medicine; Referring Provider Internal Medicine; Visit Provider Internal Medicine
DX: I10 Essential (primary) hypertension (principal)
CPT/HCPCS: 36415; 80053; 85025

== ENCOUNTER → 2021-05-02 08:32 | Outpatient (CLI) | payer OTHER, SELFPAY | PROVIDERS: PCP Internal Medicine; Referring Provider Specialist; Visit Provider Specialist | DX: U07.1 COVID-19 (principal) | CPT/HCPCS: 87635; C9803; U0005; U0003 ==

== ENCOUNTER 2021-06-29 08:32 | Outpatient (CLI) | payer OTHER, SELFPAY ==
--- NOTE | 2021-06-29 15:38 | RAD_ITS ---
HISTORY: PRE-OP EXAMINATION/TECHNIQUE: XR Chest 2 Views: 2 views COMPARISON: None FINDINGS: LINES/DEVICES: None. LUNGS: No pulmonary consolidation, mass, or edema. No pleural effusion or pneumothorax. MEDIASTINUM AND CARDIOVASCULAR STRUCTURES: Cardiac silhouette not enlarged. Central airways and mediastinal contour are unremarkable. BONES AND SOFT TISSUES: No acute bony abnormalities. RAD/Chest PA and Lateral IMPRESSION: No radiographic evidence of acute cardiopulmonary disease. at 0024 Reported and signed by: Andres Mello MD Electronically Signed: Andres Mello MD at 0:23 EST ,
== END 2021-06-29 23:59 | disposition short-term general hospital (02) ==
LOC: LAB 06-30 08:32
PROVIDERS: PCP Internal Medicine; Visit Provider Urology
DX: R97.20 Elevated prostate specific antigen [PSA] (principal)
CPT/HCPCS: 71046; 84153

== ENCOUNTER 2021-07-06 08:00 | Day surgery (SDC) | payer OTHER, SELFPAY ==
[2021-06-29 16:17] LABS: Absolute Lymphocyte Count 1.42 X10^3/uL (0.83-4.51); Absolute Neutrophil Count 5.2 X10^3/uL (2.0-7.7); Basophil# 0.03 X10^3/uL; Basophil% 0.4 % (0-1); Eosinophil# 0.04 X10^3/uL; Eosinophils% 0.5 % (0-5); Hematocrit 48.7 % (40-54); Hemoglobin 16.5 g/dL (13.0-16.5); Lymphocyte # 1.42 X10^3/ul (0.83-4.51); Lymphocyte % 18.3 % (19-41); Mean Corp Hgb Conc 33.9 g/dL (32-36); Mean Corpuscular Hgb 29.7 pg (27.0-32.0); Mean Corpuscular Volume 87.6 fL (80-94); Mean Platelet Vol. 9.5 fl (6.2-12.0); Monocyte% 12.9 % (0-10); NRBC Flagged by Analyzer 0 % (0-5); Neutrophil # 5.23 X10^3/uL (2.7-7.7); Neutrophil % 67.5 % (47-70); Platelet Count 312 K/mm3 (150-450); RBC Distribution Width SD 41.7 fl (35.1-43.9); Red Blood Count 5.56 M/mm3 (4.6-6.2); White Blood Count 7.8 K/mm3 (4.4-11.0)
[2021-06-29 16:56] LABS: Anion Gap 5 (5-15); BUN 16 mg/dL (7-18); BUN/Creat Ratio 15.1 RATIO (10-20); Calcium,Total 9.2 mg/dL (8.5-10.1); Chloride 105 mmol/L (98-107); Creatinine, Serum 1.06 mg/dL (0.70-1.30); EST Glomerular Filtration Rate 75 mL/min (>60); Est Glom Filt Rate - Afr Amer 91 mL/min (>60); Glucose 80 mg/dL (74-106); Potassium 3.7 mmol/L (3.5-5.1); Sodium Level 140 mmol/L (136-145)
[2021-07-06 08:32] VITALS: BP 128/71; PULSE 73; RESP 16; TEMP 36.6; O2SAT 97; BMI 28.5
[2021-07-06] MEDS: Lactated Ringers 1,000 ML 15 ML IV ×3 (08:35→12:00)
[2021-07-06] MEDS: Cefazolin 2 GM in 0.9% Normal Saline 100 ML IV (09:48)
[2021-07-06] MEDS: Epinephrine (1 mg/ml) 1 MG/ML VIAL ×2 (10:28→12:00)
[2021-07-06] MEDS: TXA 1000mg in NS100 100ml (IVPB at Incision) 660 MG IV (10:36)
--- NOTE | 2021-07-06 13:04 | PCM.OP.BLANK ---
Problems Associated Problem List Diagnoses (1) Rotator cuff tear, right: (2) Impingement syndrome of right shoulder: Operative Report Date of Procedure: 07/06/21 Preoperative diagnosis: Right shoulder rotator cuff tear, impingement syndrome Postoperative diagnosis: Same Procedure: Right shoulder arthroscopic subacromial decompression, rotator cuff repair Surgeon: Dr. Wilian Salinas Chart Computer: Ronda Kendrick PA-C Anesthesia: Dr. Vasquez , general with interscalene nerve block preoperatively Antibiotics: Ancef 2gm preop, 1 gm post op Complications: Captured cannula, ultimately completely removed without sequela EBL: Less than 20 Indications for surgery: Patient is a 65-year-old male with history of right shoulder problems. He failed conservative measures. MRI showed rotator cuff tear partial thickness. he also had impingement pain. he wished to have surgery. Appropriate informed consent was obtained and signed Findings: Full-thickness rotator cuff tear of the supraspinatus tendon, type II acromion , stable biceps tendon. he underwent arthroscopic arthroscopic subacromial decompression, arthroscopic rotator cuff repair using 2 Arthrex anchors with a 2 fiber link suture in each anchor. hr administrative assistant, physician assistant professor of english was utilized throughout the entire procedure. She help with patient positioning. Holding the limb holding of retractors. She help with appropriate exposure throughout the procedure. Sharp with suture passing. She help with implantation of anchor. Wound closure bandage application sling application. Without surgical supervisor surgical time would have been increased and surgical outcome could have been less optimal Procedure: Patient was taken to the operating room and transferred to the OR table. he had been given an interscalene nerve block preoperatively. he was placed under general anesthetic. Ancef was given IV preoperatively. Appropriate timeouts performed. he was placed in the [place] beachchair positioner. Right shoulder had full range of motion. Right shoulder and upper extremity were prepped padded draped in usual orthopedic sterile fashion for the procedure. We began by making a posterior portal through skin with a knife dull trocar took me into the joint while the assistant professor of english distracted the humeral head laterally. We atraumatically entered the glenohumeral joint. We noted intact biceps anchor. We noted a small SLAP tear anterior to the biceps anchor. We noted no severe arthritis of the glenohumeral joint. There was some fraying of the rotator cuff just posterior to the biceps groove. Did not identify a full-thickness tear at this point. Pictures were taken. Anterior portal was established with a knife followed by dull trocar to command the joint. We probed the biceps anchor. We probed the SLAP tear. We probed the glenohumeral joint and rotator cuff. Shaver was brought into debride the SLAP tear. Pictures were taken. We now went to the subacromial space and established a lateral portal. This was taken through skin with a knife. Dull trocar took me into the subacromial space. We performed a decompression using a debrider on the undersurface acromion. The abundant soft tissue was resected. Acromioplasty was carried out with a shaver as well as a bur making the acromion flat from front to back side to side extending underneath the lateral clavicle which was bulbous. We now could fully visualize the rotator cuff from superiorly. On probing it there was a full-thickness tear just posterior , lateral to the biceps. Was lightly debrided with a shaver bringing us back to healthy full-thickness rotator cuff tissue. We also used the shaver and bur on the greater tuberosity to freshen the bone at the repair site. Passport cannula was placed. we then used a tendon grasper to mobilize the tendon adequately which was done. Next the fiber tape suture was placed through a portal that was placed with a plastic cannula through a lateral portal. We passed 1 limb through the anterior portion of the tear and out anteriorly. The other limb was placed through the posterior portion of the tear making a horizontal mattress suture. 2 fiber link sutures were placed in between the previously passed tape suture grasping the tape suture and avoiding the biceps anchor. All 4 suture limbs limbs were now placed through the cannula and the tendon mobilized nicely. We placed a arthroscopic instrument around all 4 sutures through the cannula showing no soft tissue bridge. A 4.75 millimeters anchor that did have adequate purchase in bone was utilized tensioning the sutures nicely.. At this point it was noted the cannula was inadvertently pierced by one of the sutures holding it in place. It was ultimately decided to cut the suture holding in place. Cannula was removed.. Site was visualized with shoulder in internal and external rotation in good repair was noted of the posterior rotator cuff via the 2 previously placed link sutures. Tape suture fragment that remained was removed. Now placed 2 further fiber link sutures at the anterior portion of the cough and ultimately through a separate cannula in the same portal. tighten the sutures nicely and repair the anterior portion of the cuff to a second suture anchor. All sutures had been cut off above the implant. Shoulder was placed through range of motion and found nice rotator cuff repair. Pictures were taken. Adequate decompression was still noted. Shoulder was drained of the excess fluid. Arthroscopic instruments removed. Plastic cannula removed. Portals were closed with simple and horizontal mattress sutures. Arm sling was applied. ABD was placed in the axilla. Patient will be discharged home today. Passive shoulder motion for 6 weeks. Adequate pain medication prescribed. he will follow-up in the office in 7 to 10 days. Patient's was informed of larger tear than expected as well as passport cannula being captured by a suture that increased our surgical time. Ancef was used as a perioperative antibiotic 2 g IV. 1 g given postoperatively. This note was generated with [employer] dictation software. It may contain incorrect words, spelling, and punctuation that were not noted in checking the note before signing.
[2021-07-06 13:16] VITALS: BP 122/72; BP 128/71; PULSE 57; RESP 16; TEMP 36.2; O2SAT 100
[2021-07-06 13:30] VITALS: BP 117/65; BP 128/71; PULSE 68; RESP 16; O2SAT 100
[2021-07-06 13:45] VITALS: BP 118/71; BP 128/71; PULSE 61; RESP 16; O2SAT 94
[2021-07-06 13:50] VITALS: BP 118/70; BP 128/71; PULSE 61; RESP 16; TEMP 35.8; O2SAT 97
[2021-07-06 14:56] VITALS: BP 118/66; BP 128/71; PULSE 58; RESP 18; TEMP 36; O2SAT 98
== END 2021-07-06 23:59 | disposition home or self-care (01) ==
LOC: SDC 08:03 → AC 08:03
PROVIDERS: PCP Internal Medicine; Referring Provider Orthopaedic Surgery; Visit Provider Orthopaedic Surgery
PROC: (CPT 29827; principal; 2021-07-06 09:25)
DX: S43.431A Superior glenoid labrum lesion of right shoulder, initial encounter (principal); M75.101 Unspecified rotator cuff tear or rupture of right shoulder, not specified as traumatic; M75.41 Impingement syndrome of right shoulder; E66.3 Overweight; I10 Essential (primary) hypertension; Z68.27 Body mass index [BMI] 27.0-27.9, adult; M19.90 Unspecified osteoarthritis, unspecified site; N40.0 Benign prostatic hyperplasia without lower urinary tract symptoms; Z79.899 Other long term (current) drug therapy; K21.9 Gastro-esophageal reflux disease without esophagitis; E78.00 Pure hypercholesterolemia, unspecified; G47.33 Obstructive sleep apnea (adult) (pediatric)
CPT/HCPCS: 29826; 29827; 01630; 36415; 80048; 84153; 85025; J7120; J2405

== ENCOUNTER → 2022-03-22 | Outpatient (CLI) | payer OTHER, SELFPAY ==
[2022-03-22 12:14] LABS: Absolute Lymphocyte Count 1.74 X10^3/uL (0.83-4.51); Absolute Neutrophil Count 3.9 X10^3/uL (2.0-7.7); Basophil# 0.03 X10^3/uL; Basophil% 0.4 % (0-1); Eosinophil# 0.24 X10^3/uL; Eosinophils% 3.6 % (0-5); Hematocrit 48.6 % (40-54); Lymphocyte # 1.74 X10^3/ul (0.83-4.51); Mean Corpuscular Hgb 30.3 pg (27.0-32.0); Mean Corpuscular Volume 86.6 fL (80-94); Mean Platelet Vol. 9.8 fl (6.2-12.0); Monocyte# 0.76 X10^3/uL; Monocyte% 11.3 % (0-10); NRBC Flagged by Analyzer 0 % (0-5); Neutrophil # 3.91 X10^3/uL (2.7-7.7); Neutrophil % 58.4 % (47-70); Platelet Count 279 K/mm3 (150-450); RBC Distribution Width CV 13.2 % (11.6-14.6); RBC Distribution Width SD 41.4 fl (35.1-43.9); Red Blood Count 5.61 M/mm3 (4.6-6.2); White Blood Count 6.7 K/mm3 (4.4-11.0)
[2022-03-22 12:30] LABS: ALB/GLOB Ratio 1.3 RATIO (0.9-2.4); AST(SGOT) 16 U/L (15-37); Alanine Aminotransfer ALT/SGPT 41 U/L (16-61); Albumin, Serum 4.1 g/dL (3.2-5.0); Alkaline Phosphatase 105 U/L (45-117); Anion Gap 7 (5-15); BUN 19 mg/dL (7-18); BUN/Creat Ratio 15.7 RATIO (10-20); Calcium,Total 9.4 mg/dL (8.5-10.1); Chloride 106 mmol/L (98-107); Cholesterol 132 mg/dL (200); Creatinine, Serum 1.21 mg/dL (0.70-1.30); EST Glomerular Filtration Rate 64 mL/min (>60); Est Glom Filt Rate - Afr Amer 78 mL/min (>60); Globulin 3.2 g/dL (2.2-4.2); Glucose 100 mg/dL (74-106); High Density Lipoprotein 38 mg/dL; Potassium 4.2 mmol/L (3.5-5.1); Protein, Total 7.3 g/dL (6.4-8.2); Sodium Level 141 mmol/L (136-145); Triglycerides 66 mg/dL; Very Low Density Lipoprotein 13 mg/dL (5-40)
== END | disposition home or self-care (01) ==
LOC: BIMLAB 08:04
PROVIDERS: PCP Internal Medicine; Referring Provider Internal Medicine; Visit Provider Internal Medicine
DX: I10 Essential (primary) hypertension (principal); E78.5 Hyperlipidemia, unspecified
CPT/HCPCS: 36415; 80053; 80061; 85025

== ENCOUNTER → 2022-03-26 | Outpatient (CLI) | payer OTHER, SELFPAY ==
--- NOTE | 2022-03-26 07:55 | CT_ITS ---
STUDY: CT RIGHTLOWER EXTREMITY WITHOUT CONTRAST REASON FOR EXAM: Male, 66 years old. [facility] RADIATION DOSAGE (If Supplied By Facility): CTDIvol = ( 18.76 ) mGy, DLP = ( 1220.76 ) mGycm TECHNIQUE: Thin section transaxial imaging of the ankle was obtained, with sagittal and coronal reconstructed images. Individualized dose optimization techniques were used for this CT. COMPARISON: Pelvic x-ray dated April 06, 2015 Hip findings: A right hip prosthesis is present without demonstrated complications. Minor postoperative spurring is present at the periphery of the hip joint. A small loose body is also seen at the periphery of the right hip joint. No visualized hardware loosening or subsidence. No acute fractures are present. Normal superior and inferior pubic rami. Normal pubic symphysis. Normal ischial tuberosity. Normal visualized iliac wing, sacroiliac joint, and sacral ala. Rectosigmoid diverticulosis noted. Knee findings: There is severe narrowing in the medial compartment of the knee with a small amount of air within the joint space. Mild to moderate cortical spurring and subchondral sclerosis is also present. Mild narrowing of the medial compartment with minimal femoral condyle cortical spurring. There is mild to moderate narrowing and osteophytic spurring of the patellofemoral compartment. A small joint effusion is present. The quadriceps tendon is grossly normal. The patellar tendon is grossly normal. Normal Hoffa''s fat pad. The soft tissues are unremarkable. No fractures are present. Ankle findings: Normal visualized distal tibia and fibula. Normal tibiotalar articulation and talar dome. Normal talus, calcaneus, navicular and cuboid tarsal bones. Normal subtalar, talonavicular and calcaneocuboid articulations. Normal navicular-cuneiform, cuneiform tarsal bones and intercuneiform articulations. Normal tarsometatarsal articulations and visualized metatarsi. The soft tissue structures are grossly normal. CT/Extremity Lower without Contra IMPRESSION: 1. Stable right hip prosthesis. 2. Rectosigmoid diverticulosis 3. 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 Unremarkable ankle Electronically Signed: Ernesto Jacob MD at 14:54 EDT ,
== END | disposition home or self-care (01) ==
LOC: CT 07:54
PROVIDERS: PCP Internal Medicine; Referring Provider Specialist; Visit Provider Specialist
DX: M21.161 Varus deformity, not elsewhere classified, right knee (principal)
CPT/HCPCS: 73700

== ENCOUNTER → 2022-03-27 | Outpatient (CLI) | payer OTHER, SELFPAY | END | disposition home or self-care (01) | LOC: LABSPEC 09:41 | PROVIDERS: PCP Internal Medicine; Visit Provider Physician Assistant | DX: Z11.52 Encounter for screening for COVID-19 (principal) | CPT/HCPCS: 87635; U0003; U0005 ==

== ENCOUNTER 2022-04-11 06:58 | Observation (INO) | payer OTHER, SELFPAY ==
--- NOTE | 2022-03-29 08:20 | PCM.HP.BLA ---
History and Physical History and Physical [facility] Patient Name: Mark Baldwin : 1955 From:? CHANDLER SAINZ PA-C? DATE OF SURGERY:? 04/11/2022 SCHEDULED PROCEDURE:? right total knee arthroplasty HISTORY OF PRESENT ILLNESS: Preoperative history and physical exam was performed on March 26, 2022.? This is a 66-year-old male who has had ongoing pain for several years.? His pain as being constant and sore.? Pain is increased with going up and down stairs, sitting.? Patient was initially to undergo surgery last year but had COVID-19 and was unable to proceed.? Since then he has had rotator cuff surgery for repair with no associated complications from anesthesia.? He has continued to have pain in the right knee.? Pain is located over the medial aspect of the knee.? Patient states that occasionally wakes him at night.? He has attempted conservative measures including rest and elevation with minimal relief.? He has tried ice and heat as well as previous corticosteroid injection with no relief.? He has also had previous Visco supplementation injection with minimal relief.? He has tried eosn-ago-sphmupp medications including Aleve as well as prescription meloxicam with minimal relief.? Denies previous surgery on the right knee.? He has used a knee sleeve.? He has had previous bilateral total hip arthroplasties.? After failing conservative measures and discussing treatment options with Dr. Edvin Bassett, the patient does wish to proceed with a right total knee arthroplasty.? Following his first total hip arthroplasty he did have urinary retention.? After the second total hip arthroplasty he was pretreated with Flomax before surgery and following.? He did very well with no complications.? He is followed by one of the local urologist.? He states he is not currently taking any medication for his enlarged prostate.? We are obtaining surgical clearance from the primary care physician Dr. Maguire.? After failing conservative measures and discussing treatment options with Dr. Edvin Bassett, the patient does wish to proceed with a right total knee arthroplasty.? He has medical history pertinent for enlarged prostate, gastroesophageal reflux disease, hypertension and hypercholesterolemia.? Currently denies any chest pain, shortness of breath, fevers chills or recent infections.? No previous history of DVT or pulmonary embolism. REVIEW OF SYSTEMS: Review Of Systems: Constitutional: Denies change in appetite, fever, hard of hearing, vision problems and weight change Cardiovasular: Denies chest pain, heart murmur, irregular heartbeat and peripheral vascular disease. Respiratory: Reports sleep apnea, but denies asthma, cough, pneumonia, shortness of breath, tuberculosis and wheezing. Gastrointestinal: Denies constipation, diarrhea, heartburn, nausea, rectal itching, bloody stools and vomiting. Genitourinary: Denies incontinence. Musculoskeletal: Denies leg swelling, pain, trouble walking and weakness. Skin: Denies Raynaud's, history of shingles and tattoo. Neurological: Denies ambulatory dysfunction, dizziness, numbness/tingling and tremor. Psychiatric: Denies anxiety, depression, insomnia, mental illness and stress. Hematologic/Lymphatic: Denies anemia, bleeding/bruising tendency and past transfusion. Reviewed, no changes. PAST MEDICAL HISTORY: Advance Care Plan: Other Directive, POA Effective Date: 10/30/2017 Other Directive, LIVING WILL Effective Date: 10/30/2017 Past Medical History: Medical Problems: Arthritis, Hypercholesterolemia, High Blood Pressure, GERD Covid- 19 - vaccinated-boosterX2 Enlarged prostate Accidents: Fracture - (1969) RT CLAVICLE RT Shoulder Injury (playing pickle ball) - (01/19/2021) Surgical Hx: Tonsillectomy - (1962) Hip Replacement RT - (04/06/2015) [email or web address] Hip Replacement LT - (03/21/2016) [email or web address], [facility] Hernia Surgery RT Shoulder,Arthroscopic Rotator Cuff Repair,Subacromial Decompression - (07/06/2021) Dr Consuelo Salinas @ [facility] Anesthesia Complications: None Assistive Devices: Glasses - READING Reviewed and updated. 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 Personal Habits:? Cigarette Use: Never Smoked Cigarettes.Smokeless Tobacco: Never Used Smokeless Tobacco.E-Cigarette Use: Never used.Alcohol: Weekly use.Drug Use: Denies Use.Enjoy Exercising: Exercises 1-3 X/Week. Reviewed, no changes. VITALS: Ht: 67 Wt: 182lb Wt k.555 BMI: 28.5 BP: 122/86 Pulse: 57 Resp: 14 T: 97.4 T: 36.3C Pain Level: 3 O2SatR: 96 ALLERGIES: Atorvastatin Lipitor? MEDICATIONS: Flomax 0.4 mg 1 by mouth every day one week prior to surgery and one week post operatively, Famotidine 20 mg 2 by mouth every day, Amlodipine Besylate 10 mg 1 by mouth every day, Rosuvastatin Calcium 10 mg 1 by mouth every day, Tylenol Extra Strength 500 mg 2 by mouth every 8 hours, Hydroxyzine HCL 25 mg 1 by mouth every day PRN PRE-OP EXAM:? General appearance:NORMAL? ? ? Other: Eyes: Conjunctivae and lids: NORMAL? Pupils: ERR Ears, Nose, Mouth, and Throat: NORMAL? Other: Inspection of lips, teeth and gums: NORMAL? ?Other: Neck: Examination of neck: no masses noted. Respiratory: Assessment of respiratory effort: NORMAL? ?Other: ?Auscultation of lungs: clear to auscultation no wheezes, rhonchi or rales. Cardiovascular:? Auscultation of heart: regular rate and rhythm, no murmurs, gallops or rubs. PHYSICAL EXAMINATION: Patient does walk with an antalgic gait.? There is no erythema or signs of infection.? Mild effusion.? He has tenderness to palpation along the medial joint line.? He has varus alignment which is correctable on exam.? Range of motion: Lacks 3 full extension to 120 flexion.? Stable to varus/valgus stress test, stable to anterior/posterior drawer exam.? Sensation intact to light touch. IMAGING STUDIES: Previous x-rays of the right knee reveal medial joint space narrowing, varus alignment, subchondral sclerosis, osteophyte formation consistent with severe stage IV erosive osteoarthritis IMPRESSION: 1.? Severe right knee osteoarthritis 2.? Hypertension 3.? Enlarged prostate 4.? Gastroesophageal reflux disease 5.? Hypercholesterolemia PLAN: Dr. Edvin Bassett did discuss and review with the patient all treatment options including surgical versus nonsurgical options.? Patient does wish to proceed with the above-stated procedure.? Potential risks, benefits, and complications of the procedure were discussed in detail including but not limited to , infection, nerve and blood vessel damage, persistent pain, numbness, tingling, paresthesias, blood clot, pulmonary embolism, and requirement for possible further surgery.? The patient expressed full understanding and has no further questions for the doctor.? Patient does agree to proceed with the above-stated procedure and has signed the surgery consent form. We discussed the current risks associated with COVID 19.? This does include the risk of exposure while in the hospital.? Patient was reassured local hospitals have low infection rates and are taking all necessary precautions to avoid exposure to patients.? In addition, we discussed strategies that can be used to help limit exposure including those that limit the patient's time in the hospital.? Also using strategies to limit the patient's need for continued inpatient services after being discharged from the hospital.? Patient was notified that we will need to comply with any screening or testing the hospital wishes to perform or that surgery may be delayed for any positive results. This dictation was created using voice recognition software. Phonetic and/or grammatical errors may exist. ___? I have re-examined the patient.? There are no clinical changes since date of exam. ___? See progress notes for changes. ___? Dictated on admission Date: ? ? ?Time: Signature:
[2022-04-04 08:53] LABS: Magnesium 2.2 mg/dL (1.6-2.6)
[2022-04-11] VITALS (15 sets, daily range): BP systolic 102–138; BP diastolic 51–76; PULSE 62–83; RESP 16–18; TEMP 36.6–36.9; O2SAT 92–97; BMI 28.6; BMI 28.7
[2022-04-11] MEDS: Lactated Ringers 1,000 ML 999 ML IV ×2 (06:19→10:00)
[2022-04-11] MEDS: Gabapentin 600 MG Tablet PO (06:20)
[2022-04-11] MEDS: Acetaminophen 500 MG Tablet 1000 MG PO ×3 (06:20→21:08)
[2022-04-11] MEDS: Celecoxib 200 MG Capsule 400 MG PO (06:20)
[2022-04-11] MEDS: Magnesium 1 GM over 15 mins IV (06:21)
[2022-04-11 06:40] LABS: Bedside Glucose 97 mg/dL (74-106)
--- NOTE | 2022-04-11 07:02 | PCM.OPRPT ---
Report of Operation Date of Procedure: 04/11/22 Pre-Operative Diagnosis: Right knee primary osteoarthritis Post-Operative Diagnosis: Right knee primary osteoarthritis Surgery/Procedure Performed:: Right minimally invasive robotic total knee replacement Description of Surgical Findings:: Stable knee with good patella tracking Surgeon: Edvin Bassett sales support specialist: Evonne Akhtar Type of Anesthesia: Spinal Anesthesiologist: Marko Fox Special Medications: 2 g Ancef, 1 g TXA at incision, 1 g TXA closure, 10 mg Decadron, joint cocktail (5 mg Duramorph, 30 mL of 0.5% Ropivicaine, 1000 units of epinephrine, 30 mg of Toradol) Specimen's removed: Bony cuts Estimated Blood Loss (mL): 75 Fluids Replaced: 1000 mL crystalloid Description of Procedure: Implants used: 1. [place] size 4 triathlon cruciate retaining distal femoral press-fit component 2. [place] size 5 press-fit tritanium tibial baseplate 3. Yared X3 9 mm CS polyethylene 4. [place] X3 38 mm asymmetric patella Brief history operative indications: 66-year-old male with history of right knee osteoarthritis with radiographic findings with loss of joint space, osteophyte formation and subchondral sclerosis. Failed conservative measures as mentioned in the H&P. Discussion of total knee arthroplasty as well as risk and benefits were discussed the patient including but not limited to blood loss, DVTs, PEs, neurovascular damage, general risk of anesthesia including loss of life, and stiffness or instability were discussed with patient. Patient demonstrated understanding and was able to sign informed consent. Procedure: On the date of procedure patient's right lower extremity was marked in the preoperative area. The patient was then taken back to the operating room where the patient was placed on the table in the supine position. All bony prominences were identified a well-padded. Anesthesia assumed control of the C-spine and airway and remained controlled throughout the remainder of the procedure. A tourniquet was placed on the right upper thigh and the leg was prepped in a sterile fashion. The surgeon then scrubbed at this time .Upon reentering the room right lower extremity was draped in a standard orthopedic fashion. A timeout was then called and everyone agreed upon the side, the site, the procedure to be performed, patient's identity and antibiotics given. Esmarch bandage was used to exsanguinate the extremity and the tourniquet was placed up to 250 mmHg with the knee in flexion. A midline skin incision was made and sharp dissection was taken down through skin subcutaneous tissue and fat. The standard medial parapatellar incision was made and the patella was subluxed laterally. An Appropriate deep MCL release was done and the fat pad was resected. Our attention was then directed to the patella. The patella was everted and a flat resection was made. The knee was then flexed up in 2 femoral pins were placed inside the incision and 2 tibial pins were placed outside the incision in the medial tibia bicortically. Once this was completed the 2 checkpoints in the femur and tibia were placed. Knee was then flexed up and the bony landmarks were registered. Once this was completed knee was taken through range of motion and manually stressed allowing us to a plan for an appropriate tibial cut. The robotic arm was brought into the field sterilely and checkpoint and saw were registered. Based on the patient's deformity the tibial cut was made in 3 degrees varus. At this time the tensioner was then placed in the joint and ligament tension was checked at 90 degrees and full extension. Based on the patient's ligamentous tension appropriate adjustments were made to the operative plan and ligament releases were done. Once we were happy with our operative plan with balanced flexion and extension gaps our attention was directed to the femur. The robot was brought into the field sterilely and registered. Posterior condylar cuts, anterior chamfer cuts and anterior cuts were appropriately made for a size 4 femur. When these were completed the saws were switched out in the distal femoral and posterior chamfer cuts were made. Protecting the soft tissue throughout this time. A size 5 tibial base plate was selected. the knee was flexed to 90 degrees and the soft tissues and posterior osteophytes were removed from the joint. 40 cc of the periarticular injection was injected into the posterior medial corner of the joint. The appropriate trials were then placed on the femur and tibia. A trial polyethylene was trialed to ensure proper balancing and stability of the knee. The appropriate tibial internal rotation was then marked with a bovie. Our attention was then directed to the patella. The lug holes were drilled and the patella trial was placed. Patellar tracking was checked and deemed appropriate. Once we were happy lug holes were drilled for the femur and trial components were removed. the tibia was subluxed and pinned into place and the keel was punched and drilled appropriately. Final components were verified and opened, and cement was mixed in a vacuum. [employer] Simplex cement was used. The wound was copiously irrigated with normal saline. When the cement was ready the components were impacted into place starting with the tibia, femur and finally cementing the patella. The trial poly component was placed and the knee was placed in full extension. All excess cement was removed in the process. Once the cement had cured the tracking, alignment and balance were verified and a size 9 mm CS polyethylene component was placed. Once the final components were placed a 3-minute dilute Betadine lavage was performed followed by an Irrisept lavage was performed and the wound was copiously irrigated with normal saline solution and the periarticular injection was given. The wound was closed in a layer meza fashion using #1 vicryl interrupted sutures for the arthrotomy, 2-0 interrupted Vicryl suture for the subcuticular layer and olive for final skin closure. A sterile compressive dressing was then placed. The patient was then awakened from anesthesia, transferred to the [facility] and transferred to the PACU for recovery. Post op plan DVT ppx: ASA 81mg BID, thigh high compression stockings Follow up: in office in 2 weeks for wound check PT: to start POD #0 at hospital, outpatient PT should be arranged. Due to the complexity of this case robotic arm was used to assist in the surgery to improve accuracy and clinical outcomes. Complications No intraoperative complications Admit VTE Documentation VTE Present on Admission: No VTE Mechan Device Prophylaxis: SCD's and Thigh High CARLOS Hose VTE Pharm Prophylaxis ordered?: Yes
--- NOTE | 2022-04-11 08:00 | KNEE_PTH ---
PATIENT: KATARINA DEAN LOC: MS3 U#:[id number] AGE/SX: 66/M ROOM: [facility] RE04/11/[address]: Dr. Edvin Bassett MD : 1955 BED: 1 DIS: 04/12/2022 SPEC #: [id number] RECD: 04/11/22 14:07 STATUS: BASSAM REMeryl #: [id number] LUIZ: 04/11/22 08:[address]: Edvin Bassett DEPT: SURGICAL PATHOLOGY RECD BY: Jade Navas ENTERED: 04/12/22 09:46 SP TYPE: TOTAL KNEE OTHR DR: MD Dr. Mylene Guy MD Dr. Nicholas F Kotsonis, MD Tissues: Knee, NOS Procedures: Decalcification bone/plaque Surgery Specimen Level IV HEADER OPERATION: ERAS, total knee replacement robotic arm assist PRE-OP DIAGNOSIS: Severe right knee osteoarthritis TISSUE SUBMITTED: Bone and soft tissue of right knee MICROSCOPIC DIAGNOSIS Bone and soft tissue of right knee, total knee replacement/resection: Pieces of bone with degenerative osteoarthritic changes. /SJ: 04/18/22 MICROSCOPIC DESCRIPTION Slides are reviewed. GROSS DESCRIPTION Received is one container designated bone and soft tissue right knee. The specimen consists of multiple fragments of schaefer-yellow bone measuring in aggregate 11 x 11 x 4 cm. No soft tissue is identified. A number of bony fragments contain articular surfaces consistent with tibial plateau and femoral condyle and displaying prominent osteophyte formation, eburnation and bone erosion. Fountain Manager sections are submitted in one cassette after decalcification. / MARIANA:audrey 04/12/2022 TC:5 [facility]: [id number], [id number]
[2022-04-11] MEDS: Cefazolin 2 GM in 0.9% Normal Saline 100 ML IV (08:08)
[2022-04-11] MEDS: dexAMETHasone 10 MG/ML Vial IV (08:15)
[2022-04-11] MEDS: TXA 1000mg in NS100 100ml (IVPB at Incision) 660 MG IV (08:15)
[2022-04-11] MEDS: TXA 1000mg in NS100 100ml (IVPB at Closure) 660 MG IV (08:57)
--- NOTE | 2022-04-11 09:55 | RAD_ITS ---
STUDY: X-RAY - RIGHT KNEE REASON FOR EXAM: Male, 66 years old. Post op -- AP and Lateral xray of operative knee in PACU TECHNIQUE: 2 view(s) of the knee. COMPARISON: None. FINDINGS: Normal visualized distal femur. Normal visualized proximal tibia and fibula. Normal proximal tibiofibular articulation. The patient is status post total knee replacement. There is good alignment. Postoperative soft tissue changes. RAD/Knee 1 or 2 Views IMPRESSION: Status post total knee replacement. There is good alignment. Postoperative soft tissue changes. Electronically Signed: Olu Salmon MD at 10:38 EST ,
[2022-04-11] MEDS: Lactated Ringers 1,000 ML 125 ML IV (10:38)
[2022-04-11] MEDS: Senna/Docusate Sodium 1 Tablet 2 TABLET PO ×2 (11:56→21:07)
[2022-04-11] MEDS: Tamsulosin HCl 0.4 MG Capsule PO (11:56)
--- NOTE | 2022-04-11 14:09 | PCM.PN.HOSP ---
Subjective Subjective 66-year-old male presents to the hospital for a right total knee replacement secondary to osteoarthritis. Doing well postoperatively no issues. Off of oxygen. Denies significant right knee pain Objective Data Objective Data Vital Signs: Vital Signs Temp Pulse Resp BP Pulse Ox O2 Del Method O2 Flow Rate 97.9 F 70 18 131/65 H 96 Room Air 4 04/11/22 13:51 04/11/22 13:51 04/11/22 13:51 04/11/22 13:51 04/11/22 13:51 04/11/22 13:51 04/11/22 11:52 Oxygen Flow Rate (L/min) 4 Oxygen Delivery Method Room Air Weight: 182 lb 15.739 oz Body Mass Index (BMI) 28.6 Intake & Output: Intake and Output for Last 24 Hours 04/10/22 04/11/22 04/12/22 03:59 03:59 03:59 Intake Total 2932 / 2932 Output Total 150 / 150 Balance 2782 / 2782 Lab / Micro Data Labs: Laboratory Results - last 24 hr 04/11/22 06:01: POC Glucose 97 Micro: Microbiology 04/04/22 08:10 Swab (Method) Nasal Screen MRSA/MSSA - Final Radiography Diagnostic Testing: Radiology Impression Knee X-Ray 04/11/22 09:55 IMPRESSION: Status post total knee replacement. There is good alignment. Postoperative soft tissue changes. Electronically Signed: Olu Salmon MD at 10:38 EST Reading Location ID and State: [facility] / [place] , Service support , Physical Exam Narrative General: Alert, Oriented x3, Cooperative, No apparent distress HEENT: Atraumatic, PERRLA, EOMI, Normocephalic Oral: Moist Mucosa Neck: Supple, No JVD Lungs: Clear to auscultation, Normal air movement, No rhonchi, No wheeze, No rales Cardiovascular: Regular rate, Regular Rhythm, Normal S1, Normal S2, No murmurs Abdomen: Soft, Non Tender, Non-Distended, No Hepato-splenomegaly Extremities: No edema, Capillary Refill Less than 3 Seconds Skin: No rashes, No breakdown Musculoskeletal: No Tenderness to Palpation of Joints or Extremities Neurological: Cranial nerves II-XII grossly intact, Motor Exam 5/5 strength throughout, Sensory exam intact to light touch and pain Psych/Mental Status: Normal Affect, Appropriate Assessment & Plan Assessment/Plan (1) Status post total right knee replacement: PLAN: Plan 1. Status post right total knee replacement for osteoarthritis on 04/11/2022 ? Pain management per primary ? PT/OT 2. HTN/HLD ? Blood pressures are stable ? Continue with his home blood pressure medications ? Continue with his home Crestor 3. BPH ? Stable ? Continue with Flomax DVT: Aspirin twice daily Charges/Coding Visit Charges OBSV E&M: 73323 Subsequent observation care L2
[2022-04-11] MEDS: Cefazolin 1 GM/50 ML BAG IV ×2 (14:42→21:07)
[2022-04-11] MEDS: Ensure Surgery 237 ML LIQUID PO ×2 (14:42→17:39)
[2022-04-11] MEDS: oxyCODONE 5 MG Tablet PO (18:56)
[2022-04-11] MEDS: amLODIPine 10 MG Tablet PO (21:08)
[2022-04-11] MEDS: Aspirin 81 MG TAB.CHEW PO (21:08)
[2022-04-11] MEDS: Famotidine 20 MG Tablet PO (21:08)
[2022-04-11] MEDS: Atorvastatin Calcium 10 MG Tablet PO (21:08)
[2022-04-12 03:28] VITALS: BP 145/68; PULSE 68; RESP 18; TEMP 36.6; O2SAT 94; BMI 28.7
[2022-04-12] MEDS: Acetaminophen 500 MG Tablet 1000 MG PO ×2 (06:23→14:09)
[2022-04-12 06:30] VITALS: BMI 28.7
[2022-04-12 07:01] LABS: Hematocrit 41.2 % (40-54); Hemoglobin 14.9 g/dL (13.0-16.5); Mean Corp Hgb Conc 36.2 g/dL (32-36); Mean Corpuscular Hgb 30.7 pg (27.0-32.0); Mean Corpuscular Volume 84.9 fL (80-94); Mean Platelet Vol. 9.2 fl (6.2-12.0); Platelet Count 216 K/mm3 (150-450); RBC Distribution Width SD 39.9 fl (35.1-43.9); Red Blood Count 4.85 M/mm3 (4.6-6.2); White Blood Count 16.7 K/mm3 (4.4-11.0)
[2022-04-12 07:41] LABS: Anion Gap 5 (5-15); BUN 15 mg/dL (7-18); BUN/Creat Ratio 16.5 RATIO (10-20); Calcium,Total 8.3 mg/dL (8.5-10.1); Chloride 108 mmol/L (98-107); Creatinine, Serum 0.91 mg/dL (0.70-1.30); EST Glomerular Filtration Rate 89 mL/min (>60); Est Glom Filt Rate - Afr Amer 108 mL/min (>60); Estimated Creatinine Clearance 76.67 ml/min; Glucose 118 mg/dL (74-106); Sodium Level 138 mmol/L (136-145)
[2022-04-12] MEDS: oxyCODONE 5 MG Tablet PO ×2 (08:13→12:35)
[2022-04-12] MEDS: Aspirin 81 MG TAB.CHEW PO (08:14)
[2022-04-12] MEDS: Senna/Docusate Sodium 1 Tablet 2 TABLET PO (08:14)
[2022-04-12] MEDS: Ensure Surgery 237 ML LIQUID PO (08:14)
[2022-04-12] MEDS: Famotidine 20 MG Tablet PO (08:14)
[2022-04-12] MEDS: Tamsulosin HCl 0.4 MG Capsule PO (08:15)
[2022-04-12 08:16] VITALS: BP 134/61; PULSE 72; RESP 18; TEMP 36.8; O2SAT 98
[2022-04-12 09:26] VITALS: O2SAT 95
--- NOTE | 2022-04-12 10:05 | CASEMGMT ---
THELMA CHE Face to Face with patient for initial transition planning/care coordination assessment. RN CHINEDU introduced self and role at [facility]. Patient sitting in chair, alert and oriented. Patient willing to participate in assessment and is able to answer all questions appropriately. Care providers, pharmacy, and demographics verified. Patient wishes to discharge home with outpatient at [facility]. Patient states he has no further needs or concerns at this time. CM to follow for discharge planning needs that may arise. PCP: Andrez Specialists: etienne Bassett; Manuel, clinical informatics educator; Edward, urologist Preferred Pharmacy: [facility] Insurance: MMO Prescription Benefit: yes Living Will/HPOA: yes, Arlene Baldwin HPOA LNOK: Living Arrangements: Patient lives with in a 2 story home. Patient states he is independent and able to ambulate stairs. Transportation: DME/HHC: Patient states he has shower chair, raised toilet, cane, walker, grab bars, cpap at home. No previous HHC. Patient is scheduled for outpatient therapy at [facility] starting Saturday. Disposition Plan: Patient to discharge home with outpatient therapy, family support, and follow-up plans. Tere BARNETT, RN, CM
--- NOTE | 2022-04-12 10:30 | PN.HOSP_ITS ---
Subjective Subjective Doing well, no issues overnight. Passing gas but no BM so far. Ambulated with physical therapy without any issues. Objective Data Objective Data Vital Signs: Vital Signs Temp Pulse Resp BP Pulse Ox O2 Del Method O2 Flow Rate 98.3 F 72 18 134/61 H 98 Room Air 4 04/12/22 08:16 04/12/22 08:16 04/12/22 08:16 04/12/22 08:16 04/12/22 08:16 04/12/22 08:16 04/11/22 15:49 Oxygen Flow Rate (L/min) 4 Oxygen Delivery Method Room Air Weight: 182 lb 15.739 oz Body Mass Index (BMI) 28.6 Intake & Output: Intake and Output for Last 24 Hours 04/11/22 04/12/22 04/13/22 03:59 03:59 03:59 Intake Total 5182 / 5182 200 / 200 Output Total 150 / 150 Balance 5032 / 5032 200 / 200 Lab / Micro Data Result Diagrams: 04/12/22 06:55 04/12/22 06:55 Labs: Laboratory Results - last 24 hr 04/12/22 06:55: WBC 16.7 H, RBC 4.85, Hgb 14.9, Hct 41.2, MCV 84.9, MCH 30.7, MC HC 36.2 H, RDW Std Deviation 39.9, RDW Coeff of Zafar 13.0, Plt Count 216, MPV 9.2 04/12/22 06:55: Sodium 138, Potassium 4.0, Chloride 108 H, Carbon Dioxide 25.0, Anion Gap 5, BUN 15, Creatinine 0.91, Estim Creat Clear Calc 76.67, Est GFR (MDRD) Af Amer 108, Est GFR (MDRD) Non-Af 89, BUN/Creatinine Ratio 16.5, Glucose 118 H, Calcium 8.3 L Micro: Microbiology 04/04/22 08:10 Swab (Method) Nasal Screen MRSA/MSSA - Final Radiography Diagnostic Testing: Radiology Impression Knee X-Ray 04/11/22 09:55 IMPRESSION: Status post total knee replacement. There is good alignment. Postoperative soft tissue changes. Electronically Signed: Olu Salmon MD at 10:38 EST , Physical Exam Narrative General: Alert, Oriented x3, Cooperative, No apparent distress HEENT: Atraumatic, PERRLA, EOMI, Normocephalic Oral: Moist Mucosa Neck: Supple, No JVD Lungs: Clear to auscultation, Normal air movement, No rhonchi, No wheeze, No rales Cardiovascular: Regular rate, Regular Rhythm, Normal S1, Normal S2, No murmurs Abdomen: Soft, Non Tender, Non-Distended, No Hepato-splenomegaly Extremities: No edema, Capillary Refill Less than 3 Seconds Skin: No rashes, No breakdown Musculoskeletal: No Tenderness to Palpation of Joints or Extremities Neurological: Cranial nerves II-XII grossly intact, Motor Exam 5/5 strength throughout, Sensory exam intact to light touch and pain Psych/Mental Status: Normal Affect, Appropriate Assessment & Plan Assessment/Plan (1) Status post total right knee replacement: PLAN: Plan 1. Status post right total knee replacement for osteoarthritis on 04/11/2022 ? Pain management per primary ? PT/OT ? Stable for discharge 2. HTN/HLD ? Blood pressures are stable ? Continue with his home blood pressure medications ? Continue with his home Crestor 3. BPH ? Stable ? Continue with Flomax DVT: Aspirin twice daily Charges/Coding Visit Charges OBSV E&M: 93685 Subsequent observation care L2
[2022-04-12 11:00] VITALS: BP 134/61; PULSE 72; RESP 18; TEMP 36.8; O2SAT 95
--- NOTE | 2022-04-12 11:04 | PCM.PN.ORT ---
Subjective Subjective The patient was sitting in bedside chair upon examination. Patient denies any chest pain, shortness of breath, dizziness, lightheadedness, nausea or vomiting, or calf pain. Pain is controlled on medications. No adverse overnight events. Overall patient is doing very well today. He has tolerated therapy and has been walking in the halls. Patient has had no urinary retention today. He was pretreated with Flomax and will continue with this postoperatively. He has outpatient physical therapy established. Objective Data Objective Data Vital Signs: Vital Signs Temp Pulse Resp BP Pulse Ox O2 Del Method O2 Flow Rate 98.3 F 72 18 134/61 H 98 Room Air 4 04/12/22 08:16 04/12/22 08:16 04/12/22 08:16 04/12/22 08:16 04/12/22 08:16 04/12/22 08:16 04/11/22 15:49 Oxygen Flow Rate (L/min) 4 Oxygen Delivery Method Room Air Weight: 83 kg Body Mass Index (BMI) 28.6 Intake & Output: Intake and Output for Last 24 Hours 04/10/22 04/11/22 04/12/22 23:59 23:59 23:59 Intake Total 4582 / 5182 800 / 800 Output Total 150 / 150 Balance 4432 / 5032 800 / 800 Lab / Micro Data Result Diagrams: 04/12/22 06:55 04/12/22 06:55 Labs: Laboratory Results - last 24 hr 04/12/22 06:55: WBC 16.7 H, RBC 4.85, Hgb 14.9, Hct 41.2, MCV 84.9, MCH 30.7, MCHC 36.2 H, RDW Std Deviation 39.9, RDW Coeff of Zafar 13.0, Plt Count 216, MPV 9.2 04/12/22 06:55: Sodium 138, Potassium 4.0, Chloride 108 H, Carbon Dioxide 25.0, Anion Gap 5, BUN 15, Creatinine 0.91, Estim Creat Clear Calc 76.67, Est GFR (MDRD) Af Amer 108, Est GFR (MDRD) Non-Af 89, BUN/Creatinine Ratio 16.5, Glucose 118 H, Calcium 8.3 L Micro: Microbiology 04/04/22 08:10 Swab (Method) Nasal Screen MRSA/MSSA - Final Physical Exam Narrative Vital signs stable and afebrile. SCDs and CARLOS hose are in place bilaterally Patient is able to plantarflex and dorsiflex actively. Sensation is intact to light touch to saphenous, sural, superficial and deep peroneal, and tibial distribution. Dressing is clean dry and intact. Negative Homans bilaterally, negative signs and symptoms of DVT. Const alert, oriented x3 and no apparent distress Assessment & Plan Assessment/Plan (1) Status post total right knee replacement: PLAN: 1. S/P right total knee arthroplasty POD #1 2. Continue Pain Medications: Tylenol, meloxicam, oxycodone. Do not take any other nonsteroidal anti-inflammatories while using meloxicam/Mobic. 3. DVT Prophylaxis: Take 81 mg aspirin twice daily for 4 weeks postoperatively for DVT prophylaxis. I did discuss with the patient he is to continue the famotidine he takes twice daily at home. If taking the meloxicam and aspirin he has any stomach irritation he has been instructed to stop the meloxicam. He voiced understanding agreement. 4. PT/OT: Weightbearing as tolerated with walker 5. H & H: 14.9/41.2, asymptomatic. Postoperative anemia secondary to acute blood loss from surgery without any intra operative complications. 6. Reactive leukocytosis: Currently 16.7, afebrile. Patient did receive Decadron intraoperatively 7. Continue postoperative medical management per medicine 8. Encouraged Incentive Spirometry 9. Disposition: Plan will be for discharge home today as long he remains medically stable, tolerates therapy and pain is well controlled. He has outpatient physical therapy established. Patient would like his medications E scribed to drug [facility]. He will continue with the tamsulosin for 5 days postoperatively. If he has any difficulty with urinary retention postoperatively he is to follow with his urologist. Otherwise patient will follow-up per postop instructions. He will contact her office if having any concerns or questions upon discharge. I have reviewed the [place] Automated Rx Reporting System (OARRS) report for this patient for refill pattern and other prescriber involvement as part of the appropriate surveillance for the provision of acute and chronic controlled medications. The report was requested and reviewed on the date of this entry and was considered in the prescribing process. This dictation was created using voice recognition software. Phonetic and/or grammatical errors may exist.
--- NOTE | 2022-04-12 11:08 | PCM.DC ---
Discharge Instructions Diet Discharge Diet: No restrictions Activity Discharge Activity: May Not Drive (Patient is to do no driving for 6 weeks postoperatively. Okay to drive after 6 weeks and once off all narcotics and can walk 100 feet without the use of cane or walker.) May shower in (days): 1 (Please turn dressing away from water. Okay to get wet as long as dressing is intact to skin.) Ice area for (Minutes): 20 (Every 1-2 hours while awake. Please place barrier between the skin and ice pack.) Weight Bearing Status: Weight bearing as tolerated Keep extremity elevated above heart level: Operative Extremity Dressing / Incision Call your doctor if your incision/area has: Continuous Slow Oozing, Sudden Increased Bleeding, Increased Pain/ Swelling, Increased Redness and Foul Smelling Discharge Call your doctor if you observe: Fever of 101 or Higher, Coldness, Increased Pain, Numbness or Tingling, Change in Color, Shortness of breath, Chest pain, Calf discomfort and Uncontrolled pain Remove Dressing in: 4 days (Okay to remove dressing on April 16, 2022) Additional Dressing/Incision Instructions:: Follow [facility] Post-op Instructions. Once postoperative dressing has been removed only use gentle soap and water over the incision. Do not use any ointments, Neosporin, salves, alcohol pads over the incision for 6 weeks postoperatively. Do not submerge underwater for 6 weeks postoperatively. Continue with CARLOS hose/elastic stockings for 2 weeks postoperatively. May remove at nighttime but needs to be placed back on the leg during the day. Do NOT use alcohol with narcotic pain medication. Do NOT make important decisions while taking narcotic medication. If you have problems with taking your medication (rash, itching, nausea, etc.) call the office at once. Follow Up Care Test Results: Test results from this visit will be discussed in further detail at your follow-up appointment, if applicable. Discharge Plan Admission Admit Date/Time: 04/11/22 06:58 Attending Provider: Edvin Bassett Primary Care Provider: Mylene Maguire Consulting Providers: Olvin Jean-Baptiste ; Dilip Sánchez Discharge Orders/Prescriptions Prescriptions: New acetaminophen 500 mg Tablet 1,000 mg PO TID Qty: 100 0RF Rx Instructions: Do not take more than 3000 mg Tylenol in a 24-hour period. aspirin [Adult Aspirin Regimen] 81 mg tablet,delayed release (DR/EC) 81 mg PO BID 30 Days Qty: 0 0RF Rx Instructions: Take 81 mg aspirin twice daily for 4 weeks postoperatively for DVT prophylaxis. meloxicam 7.5 mg Tablet 7.5 mg PO BID 30 Days Qty: 60 0RF Rx Instructions: Do not take any other nonsteroidal anti-inflammatories while using meloxicam/Mobic. oxycodone 5 mg Tablet 5 - 10 mg PO Q4H PRN PRN (Reason: Pain Score 4-10) 5 Days Qty: 60 0RF sennosides-docusate sodium [Stool Softener-Stimulant Laxat] 8.6-50 mg Tablet 2 tab PO BID Qty: 20 0RF Rx Instructions: Take until first bowel movement, then as needed Continued hydroxyzine HCl 25 mg tablet 25 mg PO BID PRN (Reason: anxiety) Qty: 90 1RF amlodipine 10 mg tablet 10 mg PO QHS tamsulosin [Flomax] 0.4 mg Capsule 0.4 mg PO DAILY famotidine 20 mg tablet 20 mg PO BID Qty: 180 3RF rosuvastatin 5 mg tablet 5 mg PO QHS Qty: 90 3RF Referrals / Follow Up: Physical,Therapy [Other] - 04/16/22 9:00 am Mylene Maguire MD [Primary Care Provider] - Sabiha Olea PA [Med Staff - [facility]] - 04/24/22 10:45 am Disposition Disposition (needs filled in before D/C Order can be placed): Home, Self Care
[2022-04-12 11:13] VITALS: BMI 28.7
--- NOTE | 2022-04-12 11:21 | NURSING ---
This RN offered pain medication at this time, Wants to wait until oxycodone 5mg is due which is at 1215. pt is okay to wait until then.
--- NOTE | 2022-04-12 12:12 | PHA.DC.MC ---
Pharmacy Service has performed discharge medication reconciliation and counseling for this patient. The patient was counseled on the following discharge medications and changes in medications for homegoing were reviewed. 1. ASPIRIN 2. TYLENOL 3. SENNA/DOCUSATE 4. OXYCODONE 5. MELOXICAM The Reason for Use, instructions for use, and potential side effects were reviewed for all new medications. The patient's questions regarding all of their medications were answered. The patient was able to verbally demonstrate an understanding of their discharge medications. Home Medications famotidine 20 mg tablet 20 mg PO BID #180 tabs 06/05/21 rosuvastatin 5 mg tablet 5 mg PO QHS #90 tabs 06/05/21 hydroxyzine HCl 25 mg tablet 25 mg PO BID PRN anxiety #90 tabs 08/29/21 amlodipine 10 mg tablet 10 mg PO QHS 03/28/22 tamsulosin 0.4 mg capsule (Flomax) 0.4 mg PO DAILY 03/28/22 acetaminophen 500 mg tablet 1,000 mg PO TID #100 tabs 04/12/22 aspirin 81 mg tablet,delayed release (Adult Aspirin Regimen) 81 mg PO BID 30 days #0 tabs 04/12/22 meloxicam 7.5 mg tablet 7.5 mg PO BID 30 days #60 tabs 04/12/22 oxycodone 5 mg tablet 5 - 10 mg PO Q4H PRN PRN Pain Score 4-10 5 days #60 tabs 04/12/22 sennosides 8.6 mg-docusate sodium 50 mg tablet (Stool Softener-Stimulant Laxative) 2 tab PO BID #20 tabs 04/12/22 The patient's discharge medication list was reviewed for discrepancies and discrepancies were resolved.
[2022-04-12 14:29] VITALS: BP 128/66; PULSE 71; RESP 18; TEMP 36.7; O2SAT 97
--- NOTE | 2022-04-12 14:31 | CHAPLAIN ---
Type of Pastoral Visit _x__ Initial Visit ___ Follow-up Visit ___ On-call Visit ___ General Patient Visit ___ Spiritual Assessment ___ Family Conference ___ Bereavement ___ Rapid Response ___ Code Blue ___ Other (describe below) Pastoral Care Referral From _x__ Patient ___ Family ___ Nurse ___ Physician ___ Ammonia Operator ___ Ore Buyer ___ Other (describe below) Sacrament/Intervention _x__ Active listening ___ Anointing ___ Congregation ___ Bereavement ___ Communion ___ Esme exploration ___ ___ Life review _x__ Prayer ___ Reconciliation ___ Sacrament of Sick ___ Supportive presence ___ Wedding ___ Other (describe below) Pastoral Comments patient is sitting in chair waiting for a last OT visit before discharge; pt states that everything seems to have gone well and he is just hoping to get home soon; pt has had other ortho surgeries and has expectations for therapy and recovery; spouse is in the room, ready to take patient home at discharge; pt states that he would like a prayer; pt has no other needs
== END 2022-04-12 14:30 | disposition home or self-care (01) ==
LOC: SDC 10:13 → MS3 10:13
PROVIDERS: Anesthesiology; Admitting Provider Specialist; PCP Internal Medicine; Referring Provider Specialist; Visit Provider Specialist
PROC: 0SRC0JZ Replacement of Right Knee Joint with Synthetic Substitute, Open Approach (ICD-10-PCS; CPT 27447; principal; 2022-04-11 07:30)
DX: M17.11 Unilateral primary osteoarthritis, right knee (principal); E78.00 Pure hypercholesterolemia, unspecified; K21.9 Gastro-esophageal reflux disease without esophagitis; Z96.649 Presence of unspecified artificial hip joint; I10 Essential (primary) hypertension; G47.33 Obstructive sleep apnea (adult) (pediatric); N40.0 Benign prostatic hyperplasia without lower urinary tract symptoms
CPT/HCPCS: 27447; 01402; 64447; 36415; 73560; 80048; 82962; 83735; 85027; 87077; 87081; 88305; 88311; 96361; 96365; 96366; 97110; 97116; 97162; 97166; 97530; 97535; 99218; 99251; C1776; J7120; G0378; G0463; J3475

== ENCOUNTER → 2022-10-05 | Outpatient (CLI) | payer MEDICARE, SELFPAY ==
[2022-10-05 13:14] LABS: Absolute Lymphocyte Count 1.79 X10^3/uL (0.83-4.51); Absolute Neutrophil Count 3.7 X10^3/uL (2.0-7.7); Basophil# 0.03 X10^3/uL; Basophil% 0.5 % (0-1); Eosinophil# 0.15 X10^3/uL; Eosinophils% 2.3 % (0-5); Hematocrit 51.4 % (40-54); Hemoglobin 17.2 g/dL (13.0-16.5); Lymphocyte # 1.79 X10^3/ul (0.83-4.51); Mean Corp Hgb Conc 33.5 g/dL (32-36); Mean Corpuscular Hgb 29.1 pg (27.0-32.0); Mean Corpuscular Volume 86.8 fL (80-94); Mean Platelet Vol. 9.3 fl (6.2-12.0); Monocyte# 0.74 X10^3/uL; Monocyte% 11.6 % (0-10); NRBC Flagged by Analyzer 0 % (0-5); Neutrophil # 3.67 X10^3/uL (2.7-7.7); Neutrophil % 57.4 % (47-70); Platelet Count 322 K/mm3 (150-450); RBC Distribution Width CV 13.6 % (11.6-14.6); RBC Distribution Width SD 43.7 fl (35.1-43.9); Red Blood Count 5.92 M/mm3 (4.6-6.2); White Blood Count 6.4 K/mm3 (4.4-11.0)
[2022-10-05 13:24] LABS: PSA,Total- Diagnostic 6.49 ng/mL (0.0-4.0)
[2022-10-05 13:38] LABS: Albumin, Serum 4.1 g/dL (3.2-5.0); BUN 19 mg/dL (7-18); BUN/Creat Ratio 16.8 RATIO (10-20); Creatinine, Serum 1.13 mg/dL (0.70-1.30); EST Glomerular Filtration Rate 69 mL/min (>60); Est Glom Filt Rate - Afr Amer 84 mL/min (>60); Glucose 100 mg/dL (74-106); Protein, Total 7.4 g/dL (6.4-8.2)
[2022-10-05 13:39] LABS: ALB/GLOB Ratio 1.2 RATIO (0.9-2.4); AST(SGOT) 21 U/L (15-37); Alanine Aminotransfer ALT/SGPT 52 U/L (16-61); Alkaline Phosphatase 119 U/L (45-117); Anion Gap 9 (5-15); Calcium,Total 9.1 mg/dL (8.5-10.1); Chloride 108 mmol/L (98-107); Globulin 3.3 g/dL (2.2-4.2); Potassium 3.9 mmol/L (3.5-5.1); Sodium Level 142 mmol/L (136-145)
== END | disposition home or self-care (01) ==
LOC: BIMLAB 09:42
PROVIDERS: PCP Internal Medicine; Referring Provider Urology; Visit Provider Urology
DX: R97.20 Elevated prostate specific antigen [PSA] (principal); I10 Essential (primary) hypertension; E78.5 Hyperlipidemia, unspecified
CPT/HCPCS: 36415; 80053; 84153; 85025

== ENCOUNTER → 2023-02-11 | Outpatient (CLI) | payer MEDICARE, SELFPAY ==
[2023-02-11 12:14] LABS: Absolute Lymphocyte Count 1.42 X10^3/uL (0.83-4.51); Absolute Neutrophil Count 3.6 X10^3/uL (2.0-7.7); Basophil# 0.03 X10^3/uL; Basophil% 0.5 % (0-1); Eosinophil# 0.16 X10^3/uL; Eosinophils% 2.8 % (0-5); Hematocrit 50.2 % (40-54); Hemoglobin 17.1 g/dL (13.0-16.5); Lymphocyte # 1.42 X10^3/ul (0.83-4.51); Lymphocyte % 24.5 % (19-41); Mean Corp Hgb Conc 34.1 g/dL (32-36); Mean Corpuscular Hgb 30.1 pg (27.0-32.0); Mean Corpuscular Volume 88.2 fL (80-94); Mean Platelet Vol. 9.6 fl (6.2-12.0); Monocyte# 0.61 X10^3/uL; Monocyte% 10.5 % (0-10); NRBC Flagged by Analyzer 0 % (0-5); Neutrophil # 3.57 X10^3/uL (2.7-7.7); Neutrophil % 61.5 % (47-70); Platelet Count 276 K/mm3 (150-450); RBC Distribution Width CV 13.3 % (11.6-14.6); RBC Distribution Width SD 43.1 fl (35.1-43.9); Red Blood Count 5.69 M/mm3 (4.6-6.2); White Blood Count 5.8 K/mm3 (4.4-11.0)
[2023-02-11 12:58] LABS: ALB/GLOB Ratio 1.2 RATIO (0.9-2.4); AST(SGOT) 16 U/L (15-37); Alanine Aminotransfer ALT/SGPT 34 U/L (16-61); Alkaline Phosphatase 132 U/L (45-117); Anion Gap 6 (5-15); BUN 17 mg/dL (7-18); BUN/Creat Ratio 15.9 RATIO (10-20); Calcium,Total 9.1 mg/dL (8.5-10.1); Chloride 108 mmol/L (98-107); Cholesterol 130 mg/dL (200); Creatinine, Serum 1.07 mg/dL (0.70-1.30); EST Glomerular Filtration Rate 74 mL/min (>60); Est Glom Filt Rate - Afr Amer 89 mL/min (>60); Globulin 3.3 g/dL (2.2-4.2); Glucose 103 mg/dL (74-106); High Density Lipoprotein 39 mg/dL; Potassium 4.2 mmol/L (3.5-5.1); Protein, Total 7.3 g/dL (6.4-8.2); Sodium Level 141 mmol/L (136-145); Triglycerides 67 mg/dL; Very Low Density Lipoprotein 13 mg/dL (5-40)
== END | disposition home or self-care (01) ==
PROVIDERS: PCP Internal Medicine; Referring Provider Internal Medicine; Visit Provider Internal Medicine
DX: E78.5 Hyperlipidemia, unspecified (principal); I10 Essential (primary) hypertension
CPT/HCPCS: 36415; 80053; 80061; 85025

== ENCOUNTER → 2023-02-25 | Outpatient (CLI) | payer MEDICARE, SELFPAY ==
--- NOTE | 2023-02-25 16:12 | SP.MBSS_ITS ---
Modified Barium Swallow Patient Information Study Date: 02/25/23 Study Time: 13:00 Direct Billable Minutes: 88 Total Minutes procedure & reportin Diagnosis: Dysphagia (R13.10) Referring Physician: Mylene Maguire Medical History: The patient is a 67-year-old male with PMH including difficulty swallowing, GERD, gastroenteritis, generalized anxiety disorder, and HTN (SEE EMR for full PMH). He was referred by his PCP for a MBSS to assess concerns for intermittent swallowing trouble. He reports experiencing sensation of food caught at the level of his collarbone or sternum ~1-2X per month. Drinking water or using a puree chaser helps to clear the sensation. He does admit to eating quickly. When he has difficulty swallowing, it is typically with breads or sandwiches. Current Diet Ordered: Regular textures / Thin liquids Dentition: WNL Mental Status: WNL Respiratory Status: Oxygenating on Room Air Penetration-Aspiration Scale Penetration-Aspiration Scale: OBJECTIVE ASSESSMENT OF SWALLOW FUNCTION (QUANTITATIVE ? PER TRIAL): PENETRATION / ASPIRATION SCALE (ALANIS): 1 = does not enter airway 2 = enters airway/above vocal folds/ejected 3 = enters airway/above vocal folds/not ejected 4 = enters airway/contacts vocal folds/ejected 5 = enters airway/contacts vocal folds/not ejected 6 = enters airway/below vocal folds/ejected 7 = enters airway/below vocal folds/not ejected despite effort 8 = enters airway/below vocal folds/no effort VIDEOFLOROSCOPIC SCALE SCORE (ALANIS): Grade I = aspiration of material that has penetrated into the laryngeal vestibule, intact cough reflex Grade II = aspiration < 10 % of the bolus, intact cough reflex Grade III = aspiration of < 10 % of the bolus, reduced cough reflex or aspiration of > 10 % of the bolus, intact cough reflex Grade IV = aspiration of > 10 % of the bolus, reduced cough reflex Penetration-Aspiration Scale Score Thin Liquid via teaspoon: Result: 1= does not enter airway Thin Liquid via teaspoon Trial 2: Result: 1= does not enter airway Thin liquid via large sip by cup: Result: 1= does not enter airway Thin liquid via sequential sips by cup: Result: 1= does not enter airway Comment: Esophageal screen revealed trace retention in lower esophagus with retrograde flow remaining well below the upper esophageal sphincter. [place]/mildly thick liquid via small single cup: Result: 1= does not enter airway Pudding via teaspoon: Result: 1= does not enter airway Comment: Esophageal screen WNL. 06/04 Cookie: Result: 1= does not enter airway Thin liquid via sequential sips by straw: Result: 1= does not enter airway Oral Phase Labial Seal: No Labial Escape Tongue Control During Bolus Hold: Cohesive bolus between tongue to palatal seal Bolus Preparation/Mastication: Timely and efficient chewing and mashing Bolus Transport/Lingual Motion: Brisk tongue motion Oral Residue: Trace residue lining oral structures Pharyngeal Phase Initiation of Pharyngeal Swallow: Bolus head in valleculae Soft Palate Elevation: No bolus between soft palate and pharyngeal wall Laryngeal Elevation: Comp. Superior move thyroid cart w/comp. apprx arytenoid cart-epig pet Anterior Hyoid Excursion: Complete anterior movement Epiglottic Movement: Complete inversion Laryngeal Vestibule Closure at Height of Swallow: Complete; no air/contrast in laryngeal vestibule Pharyngeal Stripping Wave: Present - complete Pharyngoesophageal Segment Opening: Parital distension and partial duration; parital obstruction of flow Tongue Base Retraction: Narrow column of contrast between tongue base & post. pharyngeal wall Pharyngeal Residue: Trace residue within or on pharyngeal structures Esophageal Phase Esophageal Clearance: Esophageal retention w/ retrograde flow below pharyngoesophageal seg. Diagnosis/Impression Diagnosis: Oropharyngeal swallow function grossly WNL Impression: Oropharyngeal swallow function is grossly WNL. The patient demonstrates a timely swallow with good oral and pharyngeal clearance. He also demonstrates good airway closure during the swallow with no laryngeal penetration or aspiration observed. Esophageal phase findings: Esophageal screen of thin liquids revealed trace retention in lower esophagus with retrograde flow remaining well below the upper esophageal sphincter. Trace retention of thin and mildly thick liquids in upper esophagus. Recommendations Diet: Regular Textures and Thin Liquids Compensatory Strategies: Small Bites, Small Sips, Slow Rate, Alternate bites/solids and sips/liquids and Sitting upright Recommend Repeat Modified Barium Swallow: No Need for Skilled Speech Therapy Services: No Education Completed: 1. Described result of evaluation. and 5. Patient demonstrates recommended strategies. (Patient verbalized good understanding of recommended strategies.) Status Active ST Patient: Active
== END | disposition home or self-care (01) ==
LOC: RAD 12:47
PROVIDERS: PCP Internal Medicine; Referring Provider Internal Medicine; Visit Provider Internal Medicine
DX: R13.10 Dysphagia, unspecified (principal)
CPT/HCPCS: 74230; 92611

== ENCOUNTER → 2023-04-08 | Outpatient (CLI) | payer MEDICARE, SELFPAY ==
[2023-04-08 10:27] LABS: PSA,Total- Diagnostic 6.08 ng/mL (0.0-4.0)
== END | disposition home or self-care (01) ==
PROVIDERS: PCP Internal Medicine; Referring Provider Urology; Visit Provider Urology
DX: R97.20 Elevated prostate specific antigen [PSA] (principal)
CPT/HCPCS: 36415; 84153

== ENCOUNTER 2023-04-30 05:33 | Day surgery (SDC) | payer MEDICARE, SELFPAY ==
[2023-04-30] VITALS (7 sets, daily range): BP systolic 94–131; BP diastolic 54–74; PULSE 50–56; RESP 16; TEMP 36.1–37; O2SAT 93–97; BMI 29.0
--- NOTE | 2023-04-30 | GASB_PTH ---
PATIENT: KATARINA DEAN LOC: EN U#:[id number] AGE/SX: 67/M ROOM: RE04/30/[address]: Dr. Humble Nascimento MD : [id number] BED: DIS: 04/30/2023 SPEC #: [id number] RECD: 04/30/23 10:13 STATUS: BASSAM REFUGIO #: [id number] LUIZ: 04/30/23 00:[address]: Humble Nascimento DEPT: SURGICAL PATHOLOGY RECD BY: Dick Mcmahon ENTERED: 04/30/23 10:14 SP TYPE: Gastric Bx OTHR DR: Dr. Mylene Maguire MD Tissues: A - Gastric mucous membrane B - Stomach, NOS C - Gastric mucous membrane D - Esophageal mucous membrane Procedures: Special Stain Group II Surgery Specimen Level IV Alcian Blue/PAS (control) HEADER OPERATION: EGD, biopsy PRE-OP DIAGNOSIS: Swallowing difficulty TISSUE SUBMITTED: A - Antrum biopsy for histo and H. pylori, B - Greater curvature biopsy, C - EG junction biopsy, D - Mid esophagus biopsy MICROSCOPIC DIAGNOSIS A. Gastric antrum, biopsy: Chronic gastritis. See comment. B. Stomach, greater curvature, biopsy: Polypoid fragments of benign gastric mucosa with mild chronic inflammation. C. Gastroesophageal junction, biopsy: Mild chronic inflammation. Focal changes of reflux. No evidence of goblet cell metaplasia. See comment. D. Mid esophagus, biopsy: Fragments of benign squamous mucosa. No evidence of inflammation. AM:audrey 05/01/2023 COMMENT A. The results of immunohistochemistry for Helicobacter pylori will be reported separately ([id number]). C. Alcian blue/PAS stain with matched control supports the above diagnosis. MICROSCOPIC DESCRIPTION Slides are reviewed. GROSS DESCRIPTION A - Received in fixative is one container labeled with the patient's name and designated antrum biopsy. The specimen consists of one irregular fragment of light schaefer soft tissue that measures 0.6 x 0.3 x 0.1 cm. The specimen is totally submitted in one cassette. B - Received in fixative is one container labeled with the patient's name and designated greater curvature polyp. The specimen consists of multiple irregular fragments of light schaefer soft tissue that in aggregate measure 0.8 x 0.3 x 0.1 cm. The specimen is totally submitted in one cassette. C - Received in fixative is one container labeled with the patient's name and designated GE junction. The specimen consists of multiple irregular fragments of light schaefer soft tissue that in aggregate measure 0.8 x 0.6 x 0.1 cm. The specimen is totally submitted in one cassette. D - Received in fixative is one container labeled with the patient's name and designated mid esophagus. The specimen consists of one irregular fragment of light schaefer soft tissue that measures 0.6 x 0.2 x 0.1 cm. The specimen is totally submitted in one cassette. / AM:audrey 04/30/2023 TC:3 CPT: 97530 x4, [id number]
--- NOTE | 2023-04-30 05:41 | HP.PCM_ITS ---
History and Physical Date of Admission: 04/30/23 Visit Reasons: Dysphagia Chief Complaint: dysphagia [employer] Required: No Is patient in pain?: No Allergies atorvastatin calcium [From Lipitor] Adverse Reaction (Verified 03/11/23 14:44) Other Medications amlodipine 10 mg tablet 10 mg PO QHS #90 tabs 10/08/22 [Rx Confirmed 03/11/23] famotidine 20 mg tablet 20 mg PO BID #180 tabs 10/08/22 [Rx Confirmed 03/11/23] rosuvastatin 5 mg tablet 5 mg PO QHS #90 tabs 10/08/22 [Rx Confirmed 03/11/23] hydroxyzine HCl 25 mg tablet 25 mg PO BID PRN anxiety #180 tabs 02/28/23 [Rx Confirmed 03/11/23] PFSH Medical History Alcohol use Arthritis BPH (benign prostatic hyperplasia) Cardiac dysrhythmia Cor athrscl-uns vessel COVID-19 vaccine series completed CPAP (continuous positive airway pressure) dependence Diastasis recti Elevated BP without diagnosis of hypertension Flu vaccine need Gastric reflux Gastroenteritis Generalized anxiety disorder GERD (gastroesophageal reflux disease) High cholesterol High cholesterol History of edema History of fracture of clavicle Hypertension Localized swelling of abdominal wall Low testosterone Non-smoker Obstructive sleep apnea Preoperative evaluation to rule out surgical contraindication Prostate disease Right knee meniscal tear Right knee pain Right shoulder pain Swallowing difficulty Ventral incisional hernia without obstruction or gangrene Wears glasses Surgical History History of bilateral hip replacements History of esophagogastroduodenoscopy (EGD) History of removal of skin mole History of tonsillectomy and adenoidectomy History of total replacement of both hip joints Hx of colonoscopy Hx of repair of right rotator cuff S/P right rotator cuff repair S/P ventral herniorrhaphy (~04/07/18) Status post total right knee replacement Family History Father Heart disease Hypertension High cholesterol Bowel disease Depression Myocardial infarction, Onset Age: 62Mother High cholesterol ArthritisGrandmother Cancer Social History Smoking Status: Never smoker alcohol intake: current alcohol intake frequency: holidays/special occasions only substance use type: does not use what type of physical activity do you participate in: walking, weight training and other frequency: 3-4 times per week HPI HPI HPI: 67-year-old gentleman is being referred by Dr. Mylene Maguire for surgical consultation regarding esophageal dysphagia and a written copy of my surgical consult recommendations will return to her. I have previously assisted him with a colonoscopy on July 05, 2020. This was via open access for screening. Multiple diverticula were seen. I biopsied a prominent area of the proximal sigmoid colon suggesting ulceration with acute chronic inflammation and granulation tissue. No evidence of malignancy. 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 H. pylori was negative. Because of the unusual nature of the distal esophageal findings recommendations were follow-up at 1 year. The patient was feeling better so we did not pursue that. H. pylori was negative. He states that after that procedure he is swallowing was improved for several years but within the last year or 2 he has had recurrent problems where food temporarily gets stuck. Mostly bread. He is able to wash it down with water. He is on famotidine 20 mg orally twice daily. He has had a recent cookie swallow examination performed on February 25, 2023. That showed oral phase was normal, pharyngeal phase showed some partial obstruction to flow of the pharyngeal esophageal segment. There was evidence of some distal esophageal reflux. But grossly the study was felt to be normal. ROS General General: No weight change, appetite, fatigue, colon cancer, breast cancer or weakness HEENT HEENT: Yes difficulty swallowing; No eye injury, eye surgery, swollen glands or hoarseness Endo Endocrine: No thyroid disease, diabetes mellitus, thyroid cancer, Hair loss, heat intolerance or cold intolerance Skin Skin: No rash or changing moles Breast Breast: No left breast lump, right breast lump, nipple discharge, breast pain, abnormal mammogram, abnormal US or breast enlargement Musc Musculoskeletal: No back problems, arthritis, rheumatoid arthritis, gout or joint pain Cardio Cardiovascular: Yes high blood pressure; No murmur, pacemaker, heart disease, atrial fibrillation, heart attack, heart stent, palpitations, shortness of breat with exertion or chest pain Psych Psychiatric: No depression, anxiety or hearing voices Resp Respiratory: No shortness of breath, Yes sleep apnea, No cough, No COPD, No asthma, No emphysema and No wheezing Gastro Gastrointestinal: No abdominal pain, No nausea or vomiting, No diarrhea, No constipation, No blood in stool, Yes acid reflux, No hemorrhoids, No ulcers, No gallbladder problem and No black,tarry stools Rock Hematologic: No blood thinners, No blood disorders, No bleeding, No anemia and No blood clots Neuro Neurologic: No system reviewed and no additional complaints, except as documented, No as per HPI, No abnormal gait, No abnormal hearing, No abnormal movements, No abnormal speech, No behavioral changes, No burning sensations, No confusion, No convulsions, No disequilibrium, No dizziness, No localized weakness, No frequent falls, No headache(s), No lack of coordination, No loss of vision, No memory loss, No numbness, No other visual disturbances, No radicular pain, No restless legs, No sensory deficit, No syncope, No tingling, No tremor(s), No weakness and No other Exam Const General: cooperative, healthy appearing, comfortable and no acute distress Nutritional Appearance: average body habitus Orientation: alert and oriented x3 [facility] Head: normal to inspection Eyes General: appearance normal, both eyes and all related structures Neck Neck: normal visual inspection Chest Chest palpation & inspection: normal inspection of the chest Resp Effort & Inspection: normal respiratory effort Auscultation: clear to auscultation bilaterally Cardio Rate: regular rate Rhythm: regular rhythm GI Inspection: normal to inspection Palpation: soft and no hepatosplenomegaly Musc Cervical Spine: normal cervical lordosis Skin General: no rashes or lesions noted Neuro General: patient alert and patient awake Assessment and Plan Assessment and Plan (1) Swallowing difficulty: Status: Chronic Qualifiers: Dysphagia type: unspecified Qualified Code(s): R13.10 - Dysphagia, unspecified Plan: I recommend the patient a esophagogastroduodenoscopy with possible biopsy or polypectomy as indicated. He is aware that previously had squamous papillomas and careful inspection for their presence or recurrence with possible need for biopsy or even polypectomy will be pursued. He is aware of technique, benefit, risk, alternatives. Great care will need to be preserved to avoid bleeding or perforation. He has had an opportunity to ask and have questions answered. Appreciate the ongoing opportunity of assisting with the surgical care. We will schedule procedure at his discretion. Copy: Dr. Mylene Nascimento M.D., F.A.C.s I have examined the patient and the H&P has been reviewed. There are no clinical changes since date of exam. Humble Nascimento M.D., F.A.C.S.
[2023-04-30] MEDS: Lactated Ringers 1,000 ML 15 ML IV (05:56)
--- NOTE | 2023-04-30 06:30 | IMM_PTH ---
PATIENT: KATARINA DEAN LOC: EN U#:[id number] AGE/SX: 67/M ROOM: RE04/30/[address]: Dr. Humble Nascimento MD : 1955 BED: DIS: 04/30/2023 SPEC #: [id number] RECD: 04/30/23 14:30 STATUS: BASSAM REMeryl #: [id number] LUIZ: 04/30/23 06:[address]: Humble Nascmiento DEPT: IMMUNOHISTOCHEMISTRY RECD BY: Mayra Hussein ENTERED: 04/30/23 14:30 SP TYPE: IMMUNO OTHR DR: Dr. Mylene Maguire MD Tissues: A - Stomach, NOS Procedures: H Pylori (initial) PHYSICIAN & INSTITUTION [place] [id number] SPECIMEN INFORMATION: Tissue Source: A - Antrum Clinical Info: Swallowing difficulty Specimen Number: [id number] CPT code: 59853 METHODOLOGY: Deparaffinized sections of prefer/formalin-fixed tissue or PAP/DQ stained slides are incubated with monoclonal/polyclonal antibodies/oligonucleotide probes. Localization is made via biotin free immunoperoxidase method. Appropriate controls are performed and reacted as expected. Results on target cell population are indicated in the following table: RESULTS: ANTIBODY / CLONE RESULT Block A H Pylori (polyclonal) negative These tests were developed and their performance characteristics determined by [facility]. They may not have been cleared or approved by the U.S. Food and Drug Administration. The FDA has determined that such clearance or approval is not necessary. The above immunohistochemical/dualISH markers are ordered and reviewed by the Pathologist. INTERPRETATION: A. Antrum, biopsy: Negative for Helicobacter pylori organisms. AM:audrey 05/01/2023
--- NOTE | 2023-04-30 06:48 | OP.CCLET_ITS ---
04/30/2023 Mylene Maguire MD [address] [place] [address] Re : Upper GI endoscopy procedure for Mark Baldwin Dear Dr. Maguire This procedure was performed on Sunday, April 30, 2023. My impressions and recommendations are as follows: Impressions : - LA Grade A reflux esophagitis with no bleeding. Biopsied. - Small hiatal hernia. - Normal middle third of esophagus. Biopsied. - Normal upper third of esophagus. - Multiple gastric polyps. Resected and retrieved. - Erythematous mucosa in the antrum. Biopsied. - Normal examined duodenum. Recommendations : - Discharge patient to home. - Resume previous diet. - Continue present medications. - Telephone my office for pathology results in 1 week. Consider intermittent use of omeprazole 40 mg daily. Consider alternating with famotidine 3 times weekly. My findings are described in the full procedure note, which is enclosed. If I can be of further assistance, please feel free to contact me at Doctor phone number(s): Work: . Sincerely, Humble Nascimento MD 04/30/2023 6:47:51 AM This report has been signed electronically.
--- NOTE | 2023-04-30 06:48 | OP.EGD_ITS ---
Patient Name: Mark Baldwin Procedure Date: 04/30/2023 6:07 AM Date of : 1955 Age: 67 Procedure: Upper GI endoscopy Indications: Dysphagia Providers: Humble Nascimento MD Medicines: See the Anesthesia note for documentation of the administered medications Complications: No immediate complications. Procedure: Pre-Anesthesia Assessment: - Prior to the procedure, a History and Physical was performed, and patient medications and allergies were reviewed. The patient's tolerance of previous anesthesia was also reviewed. The risks and benefits of the procedure and the sedation options and risks were discussed with the patient. All questions were answered, and informed consent was obtained. Prior Anticoagulants: The patient has taken no anticoagulant or antiplatelet agents. ASA Grade Assessment: II - A patient with mild systemic disease. After reviewing the risks and benefits, the patient was deemed in satisfactory condition to undergo the procedure. After obtaining informed consent, the endoscope was passed under direct vision. Throughout the procedure, the patient's blood pressure, pulse, and oxygen saturations were monitored continuously. The gastroscope was introduced through the mouth, and advanced to the second part of duodenum. The upper GI endoscopy was accomplished without difficulty. The patient tolerated the procedure well. Scope In: 6:33:40 AM Scope Out: 6:41:04 AM Total Procedure Duration Time 0 hours 7 minutes 24 seconds Findings: LA Grade A (one or more mucosal breaks less than 5 mm, not extending between tops of 2 mucosal folds) esophagitis with no bleeding was found 40 cm from the incisors. Biopsies were taken with a cold forceps for histology. A small hiatal hernia was present. The middle third of the esophagus was normal. Biopsies were taken with a cold forceps for histology. The upper third of the esophagus was normal. Multiple sessile polyps with no stigmata of recent bleeding were found on the greater curvature of the stomach. The polyp was removed with a cold biopsy forceps. Resection and retrieval were complete. Diffuse mildly erythematous mucosa without bleeding was found in the gastric antrum. Biopsies were taken with a cold forceps for histology. The examined duodenum was normal. Impression: - LA Grade A reflux esophagitis with no bleeding. Biopsied. - Small hiatal hernia. - Normal middle third of esophagus. Biopsied. - Normal upper third of esophagus. - Multiple gastric polyps. Resected and retrieved. - Erythematous mucosa in the antrum. Biopsied. - Normal examined duodenum. Recommendation: - Discharge patient to home. - Resume previous diet. - Continue present medications. - Telephone my office for pathology results in 1 week. Consider intermittent use of omeprazole 40 mg daily. Consider alternating with famotidine 3 times weekly. Procedure Code(s): --- Professional --- 69174, Esophagogastroduodenoscopy, flexible, transoral; with biopsy, single or multiple Diagnosis Code(s): --- Professional --- K21.00, Gastro-esophageal reflux disease with esophagitis, without bleeding K44.9, Diaphragmatic hernia without obstruction or gangrene K31.7, Polyp of stomach and duodenum K31.89, Other diseases of stomach and duodenum R13.10, Dysphagia, unspecified CPT copyright 2021 [employer]. All rights reserved. The codes documented in this report are preliminary and upon associate oracle retail review may be revised to meet current compliance requirements. Humble Nascimento MD 04/30/2023 6:47:51 AM This report has been signed electronically. Number of Addenda: 0 Note Initiated On: 04/30/2023 6:07 AM
== END 2023-04-30 07:35 | disposition home or self-care (01) ==
LOC: EN 05:34 → AC 05:35
PROVIDERS: PCP Internal Medicine; Referring Provider Internal Medicine; Visit Provider Surgery
PROC: 0DJ08ZZ Inspection of Upper Intestinal Tract, Via Natural or Artificial Opening Endoscopic (ICD-10-PCS; CPT 43235; principal; 2023-04-30 06:25)
DX: R13.10 Dysphagia, unspecified (principal); E78.00 Pure hypercholesterolemia, unspecified; K31.7 Polyp of stomach and duodenum; I10 Essential (primary) hypertension; K44.9 Diaphragmatic hernia without obstruction or gangrene; Z79.899 Other long term (current) drug therapy; Z96.643 Presence of artificial hip joint, bilateral; Z96.651 Presence of right artificial knee joint; K31.89 Other diseases of stomach and duodenum; K21.00 Gastro-esophageal reflux disease with esophagitis, without bleeding; K29.50 Unspecified chronic gastritis without bleeding
CPT/HCPCS: 43239; 88305; 88313; 88342; J7120; J2405

== ENCOUNTER 2023-05-27 19:54 | Emergency (ER) | payer MEDICARE, SELFPAY ==
[2023-05-27 19:54] VITALS: BP 147/76; PULSE 66; RESP 14; TEMP 36.4; O2SAT 97; BMI 29.9
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
[2023-05-27] MEDS: Silver Sulfadiazine 1% Crm 50 gm Bottle 1 APPLIC TOPICAL (21:02)
== END 2023-05-27 21:17 | disposition home or self-care (01) ==
PROVIDERS: Emergency Provider Emergency Medicine; PCP Internal Medicine; Visit Provider Emergency Medicine
DX: T25.222A Burn of second degree of left foot, initial encounter (principal); X12.XXXA Contact with other hot fluids, initial encounter; Y93.G3 Activity, cooking and baking; Y99.8 Other external cause status; I10 Essential (primary) hypertension; E78.00 Pure hypercholesterolemia, unspecified; Z79.899 Other long term (current) drug therapy
CPT/HCPCS: 99282

== ENCOUNTER 2023-06-01 20:08 | Emergency (ER) | payer MEDICARE, SELFPAY ==
[2023-06-01 20:09] VITALS: BP 151/79; PULSE 70; RESP 16; TEMP 36.6; O2SAT 98; BMI 29.3
--- OUTSIDE RECORDS SUMMARY | 2023-06-01 20:51 | XMS RPT_ITS | CCD ---
Author Name Unknown Address [facility] [place] [address] Organization [facility] Care Team Providers Care Superintendent Tests Name Role Phone FADUMO SHAFER, EMILEE Raygoza Primary Care Physician [phone] Attending Unavailable JORGE SAVAGE DR Primary Care Unavailable JORGE SAVAGE DR Admitting Unavailable Allergies Allergy Classification Reported Allergen(s) Allergy Type Date of Onset Reaction(s) Facility (1 source) atorvastatin; Translations: [atorvastatin] Drug Allergy Muscle contraction [facility] Work Phone: Medications Current Medications Medication Drug Class(es) Dates Sig (Normalized) Sig (Original) amLODIPine 10 mg oral tablet (1 source) Dihydropyridine Calcium Channel Dov Start: 04-21-2021 amLODIPine 10 mg oral tablet Dose : 10 mg = 1 tab(s), Oral, qDay, 0 Refill(s) Start Date: 04/21/21 Status: Ordered famotidine 20 mg oral tablet (1 source) Histamine-2 Receptor Antagonist Start: 04-21-2021 famotidine 20 mg oral tablet Dose : 20 mg = 1 tab(s), Oral, BID, # 180 tab(s), 0 Refill(s) Start Date: 04/21/21 Status: Ordered rosuvastatin calcium 10 mg oral tablet (1 source) HMG-CoA Reductase Inhibitor Start: 04-21-2021 rosuvastatin 10 mg oral tablet Dose : 10 mg = 1 tab(s), Oral, qDay, # 30 tab(s), 0 Refill(s) Start Date: 04/21/21 Status: Ordered Vitamin D3 (1 source) Start: 04-21-2021 Vitamin D3 Dose : 1,000 unit(s) = 1 tab(s), Oral, Daily, # 30 tab(s), 0 Refill(s) Start Date: 04/21/21 Status: Ordered Results Test Name Value Interpretation Reference Range Facil ity Encounters Encounter Date Encounter Type Care Provider Facility Start: 08-14-2022 End: 08-14-[address] SAVAGE [facility] Start: 04-21-2021 End: 04-21-[address] LAMAR HASSAN MD [facility] Procedures Date Procedure Procedure Detail Performing Clinician Colonoscopy DR LAMAR Cordero MD Esophagogastroduoden oscopy gastric outlet reduction DR LAMAR HASSAN MD Hernia of anterior a bdominal wall (disorder) DR ALMAR HASSAN MD Tonsillectomy DR LAMAR MCHUGH MD Total replacement of hip DR LAMAR HASSAN MD Payers Date Payer Category Payer Unknown [id number] Medicare Unknown [id number] Social History Date Type Detail Facility Start: 04-21-2021 Never smoked t obacco (finding) [facility] Sex Assigned At Male [facility] Progress note 01-24-2021 Note Date & Type Note Facility 01-24-2021 Note HNO ID: [id number] Author: Nataly Li Service: ? Author Type: ? Type: Progress Notes Filed: 01/24/2021 4:02 PM Note Text: POPULATION HEALTH NAVIGATION OUTREACH Action/FYI Spoke to pt in regards to Colonoscopy/ Colorectal Cancer Screening and pt declined scheduling at this time. Contact made with patient or family member? YES Pt identified by name and : YES Outreach Outcome/Action Spoke to patient or caregiver: Patient declined Reason for Outreach Care Gap or Scheduling/Wellness visits Payer: Payor: MMO / Plan: MMO [employer] / Product Type: Indemnity / Care Gap Reviewed:: Colorectal Cancer Screening Reminder: Reminder note to check Health Maintenance for items below Health Maintenance items due: COVID-19 VACCINE(1) Never done HEPATITIS C SCREENING Never done HIV SCREENING Never done PROSTATE CANCER SCREENING DISCUSSION due on 04/12/2016 LDL CHOLESTEROL due on 03/25/2019 DEPRESSION SCREENING due on 03/31/2019 COLORECTAL CANCER SCREENING due on 04/01/2019 ANNUAL PCP TEAM CHRONIC DISEASE VISIT due on 06/23/2019 Nataly Stack Pss January 24, 2021 4:01 PM [facility] Clinical Note 01-24-2021 Note Date & Type Note Facility 01-24-2021 Note Patient Outreach (ND Q) KATARINA DEAN ([id number]) 1955 M Date Time Provider Department 01/24/21 NATALY STACK (PSS) MIQ During your visit today, we recorded the following information about you: Nataly Stack Pss 01/24/2021 4:02 PM Signed POPULATION HEALTH NAVIGATION OUTREACH Action/FYI Spoke to pt in regards to Colonoscopy/ Colorectal Cancer Screening and pt declined scheduling at this time. Contact made with patient or family member? YES Pt identified by name and : YES Outreach Outcome/Action Spoke to patient or caregiver: Patient declined Reason for Outreach Care Gap or Scheduling/Wellness visits Payer: Payor: MMO / Plan: MMO [employer] / Product Type: Indemnity / Care Gap Reviewed:: Colorectal Cancer Screening Reminder: Reminder note to check Health Maintenance for items below Health Maintenance items due: COVID-19 VACCINE(1) Never done HEPATITIS C SCREENING Never done HIV SCREENING Never done PROSTATE CANCER SCREENING DISCUSSION due on 04/12/2016 LDL CHOLESTEROL due on 03/25/2019 DEPRESSION SCREENING due on 03/31/2019 COLORECTAL CANCER SCREENING due on 04/01/2019 ANNUAL PCP TEAM CHRONIC DISEASE VISIT due on 06/23/2019 Nataly Stack Pss January 24, 2021 4:01 PM Allergies As of Date: 01/24/2021 Noted Allergy Reaction ATORVASTATIN 07/15/2014 5 - Intolerance Comments: Leg cramps PRAVASTATIN 07/15/2014 14 - Other: See Comments Comments: Leg cramps Date Reviewed: 06/23/2018 Reviewed by: Lexis Kay Ma - Fully Assessed Reason for Visit: Population Health Navigation Outreach [3910] Cmt: Colonoscopy/Colorectal Cancer Screening Prescriptions as of 01/24/2021 - rosuvastatin (CRESTOR) 5 mg tablet Take 1 tablet by mouth daily at bedtime. - omeprazole (PRILOSEC) 20 mg capsule Take 1 capsule by mouth twice daily. 1/2 hr before meal. - naproxen sodium (ALEVE) 220 mg tablet Take 220 mg by mouth as needed. - MULTIVITAMIN TAB Take one(1) tablet daily. 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] 05/17/2006 Other Specified Cardiac Dysrhythmias [I49.8] 10/28/2008 BPH (Benign Prostatic Hyperplasia) [N40.0] 10/21/2009 Obstructive sleep apnea [G47.33] Pain in joint, pelvic region and thigh [M25.559]04/08/2012 Arthritis, hip [M16.10] Peroneal tendinitis [M76.70] 07/10/2013 Encounter Status:Closed by NATALY LORENZ on 01/24/21 [facility] Evaluation + Plan note Note Date & Type Note Facility Evaluation + Plan note Future Appointments [facility] Hospital course Narrative Note Date & Type Note Facility Hospital course Narrative No data available for this section [facility] Hospital Discharge instructions Note Date & Type Note Facility Hospital Discharge instructions No data available for this section [facility] Summary Purpose Family History No Family History Records FoundNo Family History Records FoundNo Family History Records Found Advance Directives No Advanced Directives Records FoundNo Advanced Directives Records FoundNo Advanced Directives Records Found Additional Source Comments (unrecognized sect ion and content) No Status Records FoundNo Status Records FoundNo Status Records Found INFORMATION SOURCE (unrecogn ized section and content) DATE CREATED AUTHOR AUTHOR'S ROGER ATION 07/23/2021 [facility] DATE CREATED AUTHOR AUTHOR'S ORGANIZ ATION 08/15/2022 [facility] FOR RECORDS PERTAINING TO PATIENTS WHO ARE OR HAVE BEEN ENROLLED IN A CHEMICAL DEPENDENCY/SUBSTANCEABUSE PROGRAM, SOME INFORMATION MAY BE OMITTED. This clinical summary was aggregated from multiple sources. Caution should be exercised in using it in the provision of clinical care. This summary normalizes information from multiple sources, and as a consequence, information in this document may materially change the coding, format and clinical context of patient data. In addition, data may be omitted in some cases. CLINICAL DECISIONS SHOULD BE BASED ON THE PRIMARY CLINICAL RECORDS. [employer] provides no warranty or guarantee of the accuracy or completeness of information in this document.
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
== END 2023-06-01 21:28 | disposition home or self-care (01) ==
PROVIDERS: Emergency Provider Emergency Medicine; PCP Internal Medicine; Visit Provider Emergency Medicine
DX: L03.116 Cellulitis of left lower limb (principal); T25.222A Burn of second degree of left foot, initial encounter; X19.XXXA Contact with other heat and hot substances, initial encounter; Y93.G3 Activity, cooking and baking; Z99.89 Dependence on other enabling machines and devices; E78.00 Pure hypercholesterolemia, unspecified; I10 Essential (primary) hypertension; Z79.899 Other long term (current) drug therapy; K21.9 Gastro-esophageal reflux disease without esophagitis; Z96.643 Presence of artificial hip joint, bilateral; Z96.651 Presence of right artificial knee joint
CPT/HCPCS: 99282

== ENCOUNTER → 2024-01-01 | Outpatient (CLI) | payer MEDICARE, SELFPAY ==
[2024-01-01 12:48] LABS: Absolute Lymphocyte Count 1.42 X10^3/uL (0.83-4.51); Absolute Neutrophil Count 3.7 X10^3/uL (2.0-7.7); Basophil# 0.03 X10^3/uL; Basophil% 0.5 % (0-1); Eosinophil# 0.14 X10^3/uL; Eosinophils% 2.3 % (0-5); Hematocrit 48.9 % (40-54); Hemoglobin 16.6 g/dL (13.0-16.5); Lymphocyte # 1.42 X10^3/ul (0.83-4.51); Lymphocyte % 23.2 % (19-41); Mean Corp Hgb Conc 33.9 g/dL (32-36); Mean Corpuscular Hgb 29.4 pg (27.0-32.0); Mean Corpuscular Volume 86.7 fL (80-94); Mean Platelet Vol. 9.9 fl (6.2-12.0); Monocyte# 0.76 X10^3/uL; Monocyte% 12.4 % (0-10); NRBC Flagged by Analyzer 0 % (0-5); Neutrophil # 3.73 X10^3/uL (2.7-7.7); Neutrophil % 61.1 % (47-70); Platelet Count 279 K/mm3 (150-450); RBC Distribution Width CV 13.1 % (11.6-14.6); RBC Distribution Width SD 40.7 fl (35.1-43.9); Red Blood Count 5.64 M/mm3 (4.6-6.2); White Blood Count 6.1 K/mm3 (4.4-11.0)
[2024-01-01 13:00] LABS: ALB/GLOB Ratio 1.2 RATIO (0.9-2.4); AST(SGOT) 12 U/L (15-37); Alanine Aminotransfer ALT/SGPT 40 U/L (16-61); Alkaline Phosphatase 107 U/L (45-117); Anion Gap 3 (5-15); BUN 14 mg/dL (7-18); BUN/Creat Ratio 13.9 RATIO (10-20); Calcium,Total 9.1 mg/dL (8.5-10.1); Chloride 108 mmol/L (98-107); Cholesterol 121 mg/dL (200); Creatinine, Serum 1.01 mg/dL (0.70-1.30); EST Glomerular Filtration Rate 79 mL/min (>60); Est Glom Filt Rate - Afr Amer 95 mL/min (>60); Globulin 3.3 g/dL (2.2-4.2); Glucose 105 mg/dL (74-106); High Density Lipoprotein 39 mg/dL; Potassium 4.1 mmol/L (3.5-5.1); Protein, Total 7.3 g/dL (6.4-8.2); Sodium Level 139 mmol/L (136-145); T4 Free Direct 0.94 ng/dL (0.76-1.46); Thyroid Stim Hormone (TSH) 2.33 uIU/mL (0.358-3.74); Triglycerides 54 mg/dL; Very Low Density Lipoprotein 11 mg/dL (5-40)
== END | disposition home or self-care (01) ==
PROVIDERS: PCP Internal Medicine; Referring Provider Internal Medicine; Visit Provider Internal Medicine
DX: I10 Essential (primary) hypertension (principal)
CPT/HCPCS: 36415; 80053; 80061; 84439; 84443; 85025

== ENCOUNTER → 2024-01-22 | Outpatient (CLI) | payer MEDICARE, SELFPAY ==
[2024-01-22 10:37] LABS: PSA,Total- Diagnostic 7.91 ng/mL (0.0-4.0)
== END | disposition home or self-care (01) ==
LOC: LAB 09:13
PROVIDERS: PCP Internal Medicine; Referring Provider Urology; Visit Provider Urology
DX: R97.20 Elevated prostate specific antigen [PSA] (principal)
CPT/HCPCS: 36415; 84153

== ENCOUNTER → 2024-01-28 | Outpatient (CLI) | payer MEDICARE, SELFPAY ==
[2024-01-30 13:08] LABS: PSA, Free % 22.8 % (.)
== END | disposition home or self-care (01) ==
LOC: LAB 13:46
PROVIDERS: PCP Internal Medicine; Referring Provider Urology; Visit Provider Urology
DX: R97.20 Elevated prostate specific antigen [PSA] (principal)
CPT/HCPCS: 36415; 84153; 84154

== ENCOUNTER → 2024-02-19 | Outpatient (CLI) | payer MEDICARE, SELFPAY ==
--- NOTE | 2024-02-19 10:20 | MRI_ITS ---
EXAMINATION: MR Pelvis WO/W Contrast COMPARISON: None CLINICAL HISTORY: 68-year-old male with elevated PSA Most recent PSA = 7.9 ng/ml; PSA date = 01/22/2024 TECHNIQUE: Standard prostate MR protocol was used before and after administration of 17 cc of IV Clariscan. FINDINGS: Prostate volume: 75 cc PSA density: 0.10 ng/ml2 Length of membranous urethra: 14 mm Post-biopsy hemorrhage: None Multiparametric MR evaluation: Heterogeneous appearance of the central gland is consistent with benign prostatic hyperplasia. Heterogeneous T2 hypointensity throughout the peripheral zone. No suspicious focal T2 hypointense or diffusion restricting lesions. Capsular margin and neurovascular bundle: Normal Seminal vesicles: Normal Lymph nodes: No lymphadenopathy in the field of view. Bones: No suspicious lesions in the field of view. MRI/Pelvis W/WO Contrast IMPRESSION: PI-RADS 2: Benign prostatic hyperplasia and prostatitis. No suspicious focal T2 hypointense or diffusion restricting lesions. Electronically Signed: Kofi Moore MD at 0:18 EDT ,
[2024-02-19 10:48] LABS: CREATININE FINGERSTICK < 1.0 mg/dL (0.70-1.30); EGFR FINGERSTICK > 60.0000 mL/min (>60)
== END | disposition home or self-care (01) ==
LOC: MRI 10:12
PROVIDERS: PCP Internal Medicine; Referring Provider Urology; Visit Provider Urology
DX: R97.20 Elevated prostate specific antigen [PSA] (principal)
CPT/HCPCS: 72197; A9575

== ENCOUNTER → 2024-03-18 | Outpatient (CLI) | payer MEDICARE, SELFPAY ==
[2024-03-18 15:43] LABS: Anion Gap 6 (5-15); BUN 25 mg/dL (7-18); BUN/Creat Ratio 21.6 RATIO (10-20); Calcium,Total 9.8 mg/dL (8.5-10.1); Chloride 104 mmol/L (98-107); Creatinine, Serum 1.16 mg/dL (0.70-1.30); EST Glomerular Filtration Rate 67 mL/min (>60); Est Glom Filt Rate - Afr Amer 81 mL/min (>60); Glucose 95 mg/dL (74-106); Potassium 4.1 mmol/L (3.5-5.1); Sodium Level 142 mmol/L (136-145)
== END | disposition home or self-care (01) ==
LOC: BIMLAB 11:07
PROVIDERS: PCP Internal Medicine; Referring Provider Internal Medicine; Visit Provider Internal Medicine
DX: I10 Essential (primary) hypertension (principal)
CPT/HCPCS: 36415; 80048

== ENCOUNTER → 2024-05-05 | Outpatient (CLI) | payer MEDICARE, SELFPAY ==
--- NOTE | 2024-05-05 13:42 | RAD_ITS ---
STUDY: X-RAY CHEST REASON FOR EXAM: Male, 68 years old. Cough x5 weeks TECHNIQUE: PA and lateral views of the chest. COMPARISON: 06/29/2021 FINDINGS: The lungs are clear and expanded. There is no demonstrated pleural abnormality. Normal size heart. Normal mediastinum and isra. Normal visualized pulmonary arteries. There is atherosclerotic calcification of the aortic arch with tortuosity. There are diffuse degenerative changes of the visualized thoracic spine. Normal visualized ribs, clavicles, and shoulders. There is no demonstrated abnormality of the visualized soft tissue structures of the upper abdomen. RAD/Chest PA and Lateral IMPRESSION: No acute pulmonary process Electronically Signed: Stan Santillan MD at 14:28 EST ,
== END | disposition home or self-care (01) ==
LOC: MTRAD 13:42
PROVIDERS: PCP Internal Medicine; Referring Provider Physician Assistant; Visit Provider Physician Assistant
DX: R05.9 Cough, unspecified (principal)
CPT/HCPCS: 71046

== ENCOUNTER → 2024-07-29 | Outpatient (CLI) | payer MEDICARE, SELFPAY ==
[2024-07-29 13:09] LABS: Anion Gap 12 (5-15); BUN 20 mg/dL (4-19); BUN/Creat Ratio 18.3 RATIO (10-20); Calcium 9.7 mg/dL (7.6-11.0); Carbon Dioxide 29.2 mmol/L (22.0-29.0); Chloride 101 mmol/L (96-108); Creatinine, Serum 1.1 mg/dL (0.8-1.3); EST Glomerular Filtration Rate 74 (>60); Glucose 101 mg/dL (70-99); Potassium 3.7 mmol/L (3.3-5.1); Sodium Level 141 mmol/L (133-145)
== END | disposition home or self-care (01) ==
LOC: BIMLAB 11:24
PROVIDERS: PCP Internal Medicine; Referring Provider Internal Medicine; Visit Provider Internal Medicine
DX: I10 Essential (primary) hypertension (principal)
CPT/HCPCS: 36415; 80048

== ENCOUNTER → 2024-12-22 | Outpatient (CLI) | payer MEDICARE, SELFPAY ==
[2024-12-22 10:18] LABS: Hematocrit 46.5 % (40-54); Hemoglobin 16.4 g/dL (13.0-16.5); Immature Granulocytes Count 0.030 X10^3/uL (0.0-0.0); Mean Corp Hgb Conc 35.3 g/dL (32-36); Mean Corpuscular Volume 85.2 fL (80-94); Mean Platelet Vol. 9.4 fl (6.2-12.0); NRBC Flagged by Analyzer 0 % (0-5); Platelet Count 256 K/mm3 (150-450); RBC Distribution Width CV 13.1 % (11.6-14.6); RBC Distribution Width SD 40.1 fl (35.1-43.9); Red Blood Count 5.46 M/mm3 (4.6-6.2); White Blood Count 7.6 K/mm3 (4.4-11.0)
[2024-12-22 11:12] LABS: Cholesterol 153 mg/dL (<=200); Low Density Lipoprotein Calc. 100 mg/dL; Triglycerides 73 mg/dL; Very Low Density Lipoprotein 15 mg/dL (5-40); cholesterol:hdl ratio screen 3.98
[2024-12-22 11:15] LABS: AST(SGOT) 28 U/L (<=37); Albumin, Serum 4.4 g/dL (3.4-4.8); Alkaline Phosphatase 92 U/L (40-129); Anion Gap 13 (5-15); BUN 25 mg/dL (4-19); BUN/Creat Ratio 22.0 RATIO (10-20); Calcium,Total 9.3 mg/dL (7.6-11.0); Carbon Dioxide 24.9 mmol/L (21.0-32.0); Chloride 104 mmol/L (98-108); Globulin 2.8 g/dL (2.2-4.2); Glucose 97 mg/dL (70-99); Potassium 3.8 mmol/L (3.3-5.1)
[2024-12-22 11:23] LABS: Alanine Aminotransfer ALT/SGPT 35 U/L (<=46)
--- OUTSIDE RECORDS SUMMARY | 2024-12-22 19:32 | XMS RPT_ITS | CCD ---
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 COVID-19 vaccine series completed Right knee pain Right shoulder pain Localized swelling of abdominal wall Gastroenteritis Low testosterone Right knee meniscal tear Elevated BP without diagnosis of hypertension Diastasis recti Ventral incisional hernia without obstruction or gangrene GERD (gastroesophageal reflux disease) Arthritis Obstructive sleep apnea BPH (benign prostatic hyperplasia) Cardiac dysrhythmia Cor athrscl-uns vessel High cholesterol Surgical History History of total right knee replacement Status post total right knee replacement Hx of repair of right rotator cuff S/P right rotator cuff repair History (more content not included)... Normal [facility] Internal Medicine Office Vis virgen 10-22-2024 Internal Medicine Office Visit [facility] [address] [place] [address] OFFICE VISIT Date of Service: 10/22/24 MR#: [id number] Acct: [id number] Name: KATARINA BALDWIN Rep #: [id number] : 1955 Provider: Dr. Emilee galdamez MD Age/Sex: 69/M [place] [facility] Status: Signed Intake Vital Signs 07/29/24 10:32 10/22/24 14:11 Height 5 ft 7 in 5 ft 7 in Weight: 187 lb BMI 29.2 BP 108/58 L Blood Pressure Location Rt brachial Position Sitting Respiration 16 Pulse 61 Pulse Source Monitor Temp 96.7 F L Temp Source Temporal Pulse Oximetry (%) 97 Oxygen Delivery Method room air Intake Visit Reasons: 3 M FU Chief Complaint: Follow-up chronic conditions Dictating Transcribing Machine Servicer Required: No Accompanied by: Self Is patient in pain?: No Allergies atorvastatin calcium (From Lipitor) Adverse Reaction (Verified 10/22/24 14:07) Other Medications ???Medication ???Instructions ???Recorded ???Confirmed ???Type chlorthalidone 25 mg tablet 12.5 mg (1/2 x 25 mg) PO DAILY #60 12/02/24 05/22/25 Rx tabs hydroxyzine HCl 25 mg tablet 25 mg PO ONCE PRN 07/29/24 5 History cephalexin 500 mg capsule 500 mg PO TID #21 caps 09/02/24 Rx amlodipine 10 mg tablet 10 mg PO QHS #90 tabs 09/14/24 Rx famotidine 20 mg tablet 20 mg PO BID #180 tabs 09/14/24 Rx rosuvastatin 5 mg tablet 5 mg PO QHS #90 tabs 09/21/2410/02 Rx omeprazole 40 mg capsule,delayed 40 mg PO DAILY #90 caps 09/28/24 0 10/22/24 Rx release Have you fallen in the past year?: No [facility] Medical History (Updated 10/22/24 @ 14:[address] Emilee Maguire MD) Abnormal screening cardiac CT Blepharitis of left upper eyelid Screening for cardiovascular condition Acute bronchitis, unspecified Health care maintenance Foot pain, bilateral Chronic neck pain Swallowing difficulty Generalized anxiety disorder Wears glasses Alcohol use Prostate disease High cholesterol Gastric reflux Non-smoker CPAP (continuous positive airway pressure) dependence History of edema Hypertension History of fracture of clavicle Preoperative evaluation to rule out surgical contraindication Flu vaccine need COVID-19 vaccine series completed Right knee pain Right shoulder pain Localized swelling of abdominal wall Gastroenteritis Low testosterone Right knee meniscal tear Elevated BP without diagnosis of hypertension Diastasis recti Ventral incisional hernia without obstruction or gangrene GERD (gastroesophageal reflux disease) Arthritis Obstructive sleep apnea BPH (benign prostatic hyperplasia) Cardiac dysrhythmia Cor athrscl-uns vessel High cholesterol Surgical History History of total right knee replacement Status post total right knee replacement Hx of repair of right rotator cuff S/P right rotator cuff repair History of removal of skin mole History of esophagogastroduodenoscopy (EGD) Hx of colonoscopy History of bilateral hip replacements History of tonsillectomy and adenoidectomy S/P ventral herniorrhaphy ( 04/07/18) History of total replacement of both hip joints Family History Father Heart disease Hypertension High cholesterol Bowel disease Depression Myocardial infarction, Onset Age: 62 Mother High cholesterol Arthritis Grandmother Cancer Social History Smoking Status: Never smoker alcohol intake: current alcohol intake frequency: holidays/special occasions only substance use type: does not use what type of physical activity do you participate in: walking, weight training and other frequency: 3-4 times per week HPI HPI Chief Complaint: Follow-up chronic conditions Details: KATARINA BALDWIN, is a 69 M who presents to the office today for follow-up of his chronic medical conditions. No acute concerns at this time. History of hypertension, blood pressure today is at 108/58. Did come in with his log which on average shows readings ranging from 107/68 to high of 134/78. Continues to stay active. No chest pain, palpitation or shortness of breath. Taking his medications as prescribed. Also history of hyperlipidemia on rosuvastatin, stable lipid profile at last check. No muscle pain or weakness. Recent coronary calcium scoring suggestive of moderate plaque including an LAD. Had a coronary calcium scoring many years ago and he believes that there was a small amount of plaque noted. No tobacco abuse. Other chronic conditions are stable. ROS Const Constitutional: No body ache, excessive sweating, fatigue, fever(s), frequent falls, headache(s), snoring, weakness, weight change, sleep problems or change in appetite Eyes Eyes: No blurry (more content not included)... Normal [facility] Urgent Care Visit Reporton 0 09-02-2024 Urgent Care Visit Report [facility] [address] , [address] [place] [address] OFFICE VISIT Date of Service: 09/02/24 MR#: [id number] Acct: [id number] Name: KATARINA BALDWIN Rep #: [id number] : 1955 Provider: MONIK Torres Age/Sex: 68/M Location[place] [facility] Status: Signed Intake Vital Signs 07/29/24 10:32 09/02/24 10:25 Height 5 ft 7 in Weight: 186 lb BMI 29.1 BP 138/70 H 124/80 H Blood Pressure Location Rt brachial Position Sitting Sitting Respiration 17 Pulse 79 66 Pulse Source Monitor Temp 98.4 F 97.5 F L Temp Source Temporal Oral Pulse Oximetry (%) 98 99 Oxygen Delivery Method room air room air Intake Visit Reasons: L EYELID SWOLLEN Accompanied by: Self Allergies atorvastatin calcium (From Lipitor) Adverse Reaction (Verified 09/02/24 10:24) Other Medications ???Medication ???Instructions ???Recorded ???Confirmed ???Type amlodipine 10 mg tablet 10 mg PO QHS #90 tabs 09/18/2307/28 Rx famotidine 20 mg tablet 20 mg PO BID #180 tabs 09/18/23 Rx rosuvastatin 5 mg tablet 5 mg PO QHS #90 tabs 09/18/2307/28 Rx chlorthalidone 25 mg tablet 12.5 mg (1/2 x 25 mg) PO DAILY #60 05/04/24 09/02/24 Rx tabs omeprazole 40 mg capsule,delayed 40 mg PO DAILY #90 caps 05/15/24 0 09/02/24 Rx release hydroxyzine HCl 25 mg tablet 25 mg PO ONCE PRN 07/29/24 5 History cephalexin 500 mg capsule 500 mg PO TID #21 caps 09/02/24 Rx Have you fallen in the past year?: No Nurse's Note: Patient left eye lid is swollen and red and itches and pressure and some pain. Patient states that his eye doesn't have any discharge from it. [facility] Medical History (Updated 09/02/24 @ 11:05 by Lamar RUGGIERO, PA) Blepharitis of left upper eyelid Screening for cardiovascular condition Acute bronchitis, unspecified Health care maintenance Foot pain, bilateral Chronic neck pain Swallowing difficulty Generalized anxiety disorder Wears glasses Alcohol use Prostate disease High cholesterol Gastric reflux Non-smoker CPAP (continuous positive airway pressure) dependence History of edema Hypertension History of fracture of clavicle Preoperative evaluation to rule out surgical contraindication Flu vaccine need COVID-19 vaccine series completed Right knee pain Right shoulder pain Localized swelling of abdominal wall Gastroenteritis Low testosterone Right knee meniscal tear Elevated BP without diagnosis of hypertension Diastasis recti Ventral incisional hernia without obstruction or gangrene GERD (gastroesophageal reflux disease) Arthritis Obstructive sleep apnea BPH (benign prostatic hyperplasia) Cardiac dysrhythmia Cor athrscl-uns vessel High cholesterol Surgical History History of total right knee replacement Status post total right knee replacement Hx of repair of right rotator cuff S/P right rotator cuff repair History of removal of skin mole History of esophagogastroduodenoscopy (EGD) Hx of colonoscopy History of bilateral hip replacements History of tonsillectomy and adenoidectomy S/P ventral herniorrhaphy ( 04/07/18) History of total replacement of both hip joints Family History Father Heart disease Hypertension High cholesterol Bowel disease Depression Myocardial infarction, Onset Age: 62 Mother High cholesterol Arthritis Grandmother Cancer Social History Smoking Status: Never smoker alcohol intake: current alcohol intake frequency: holidays/special occasions only substance use type: does not use what type of physical activity do you participate in: walking, weight training and other frequency: 3-4 times per week HPI HPI Details: KATARINA BALDWIN, is a 68 M who presents to the office today for [facility] evaluation at [facility] for approximately 24-hour history of persistent erythema, swelling, tenderness along the left upper eyelash border. Localized tenderness is aggravated touch, alleviated with rest. No vision changes or eye globe pain. No [id number] products taken to assist. [facility]. Patient notes due to history of hip replacements and concern for infection he would appreciate being placed on antibiotic to ensure he does not develop any long-term problems as he describes. No other associated symptoms and no other alleviating/aggravating factors. ROS Const Constitutional: No other (As above) Exam Const General: cooperative, healthy appearing and no acute distress Orientation: alert and awake HENIA Head: normal to inspection Ears: hearing grossly normal bilaterally and external ears normal Nose: external nose normal (more content not included)... Normal [facility] Coronary Angiography CTon Coronary Angiography CT [facility] Imaging Services [address] [place] [address] 08/21/24 0921 MR#: [id number] Acct: [id number] Name: KATARINA BALDWIN Rep #: [id number] : 1955 68 From: Donnie Guthrie MD PCP: Dr. Emilee Maguire MD Status:REG REF Y Location: CT Calcium Scoring Date of Study:: 08/21/24 Indications Indications: Risk assessment Coronary Calcium Scoring: High-resolution Computed Tomographic imaging of the chest was performed on [08/21/2024], with particular attention paid to the coronary arteries. Images from the examination were analyzed for the presence and extent of coronary artery calcification , using coronary calcium quantification software. The patient tolerated the procedure well and there were no complications. The results of the coronary calcification analysis are provided below. Findings Coronary Artery Left Main (LM): 157 Left Anterior Descending (LAD): 46 Left Circumflex (LCX): 53 Right Coronary Artery (RCA): 0 Total Agatston Score: 256 Percentile Rankinth percentile to 75th percentile Calcium Scoring Interpretation: Different methods to categorize the overall amount of coronary plaque. Overall amount CAC SIS Visual of coronary plaque P1 Mild -100 <2 1-2 vessels with mild amount of plaque P2 Moderate 101-300 3-4 1-2 vessels with moderate amount, 3 vessels with mild amount of plaque P3 Severe 301-999 5-7 3 vessels with moderate amount, 1 vessel with severe amount of plaque P4 Extensive >1000 >8 2-3 vessels with severe amount of plaque Calcium Score: Moderate: 1-2 vessels w/moderate amt, 3 vessels w/mild amt of plaque Conclusion: Moderate plaque noted in 2 vessels and left main artery. 08/21/24 09 Date Donnie Guthrie MD Cosigner Signature (if applicable): Date CC: Dr. Donnie Guthrie MD; Dr. Emilee Maguire MD Signed Normal [facility] Limited Chest CT Cardiac Onl yon 08-21-[address] Cardiac Only [facility] Imaging Services [address] [place] [id number] Cardiac Only MR#: [id number] Acct: [id number] Name: KATARINA BALDWIN Rep #: [id number] : 1955 M 68 From: Olu shaw MD PCP: Dr. Emilee Maguire MD Status: REG REF Study: Limited Chest CT Cardiac Only Date of Exam: Exam# [id number] Ordering Dr: Emilee Maguire MD PROCEDURE: LIMITED CHEST CT CARDIAC ONLY 08/21/2024 REASON FOR EXAM: CARDIOVASCULAR RISK ASSESEMENT TECHNIQUE: Chest CT without contrast. One or more dose reduction techniques were used (e.g., Automated exposure control, adjustment of the mA and/or kV according to patient size, use of iterative reconstruction technique COMPARISON: None. RADIATION DOSE SUMMARY: CTDlvol: 12.19 mGy DLP: 195.01 mGycm FINDINGS: Hardware: None Lymph nodes: Tiny benign-appearing mediastinal lymph nodes. Heart and Vasculature: Atherosclerotic calcifications of the thoracic aorta. Thoracic aorta and pulmonary arteries have normal contours; noncontrast technique limits evaluation. Coronary Artery Calcifications: Present Lungs and Airways: No acute abnormality. Pleura: Unremarkable Upper Abdomen: Unremarkable Bones: Degenerative changes of the thoracic spine. CT/Limited Chest CT Cardiac Only IMPRESSION: Coronary artery calcification. Reading Location: [place] [address] CC: Dr. Emilee Maguire MD Commercial Kitchen Service Technician: Signed Normal [facility] BUN/creatinine ratioOrdered By: Emilee Maguire on 07-29-2024 Urea nitrogen/Creatinine [Mass ratio] 18.3 mg/mg - [facility] Basic Metabolic Profile (BMP )on 07-29-2024 Anion gap [Moles/Vol] 12 mmol/L Normal - [facility] Comment on above: Performed By: #### L 500.2500 ####[facility] [address] [place], [place], [address] BUN/CRE 18.3 RATIO Normal - [facility] Comment on above: Performed By: #### L 500.2500 ####[facility] [address] [place], [address] Calcium [Mass/Vol] 9.7 mg/dL Normal 7.6-11.0 [facility] Comment on above: Performed By: #### L 500.2500 ####[facility] [address] [place], [address] Chloride [Moles/Vol] 101 mmol/L Normal 96-108 [facility] Comment on above: Performed By: #### L 500.2500 ####[facility] [address] [place], [address] CO2 [Moles/Vol] 29.2 mmol/L High 22.0-29.0 [facility] Comment on above: Performed By: #### L 500.2500 ####[facility] [address] [place], [address] Creatinine [Mass/Vol] 1.1 mg/dL Normal 0.8-1.3 [facility] Comment on above: Performed By: #### L 500.2500 ####[facility] [address] [place], [address] GFR/1.73 sq M.predicted among non-blacks MDRD (S/P/Bld) [Vol rate/Area] 74 mL/min/{1.73_m2} Normal >60 [facility] Comment on above: Result Comment: mL/m in/1.73m2 CKD-EPI Creatinine Equation (2020) Performed By: #### L 500.2500 ####[facility] [address] [place], [address] Glucose [Mass/Vol] 101 mg/dL High 70-99 [facility] Comment on above: Performed By: #### L 500.2500 ####[facility] [address] [place], [address] Potassium [Moles/Vol] 3.7 mmol/L Normal 3.3-5.1 [facility] Comment on above: Performed By: #### L 500.2500 ####[facility] [address] [place], [place], [address] Sodium [Moles/Vol] 141 mmol/L Normal 133-145 [facility] Comment on above: Performed By: #### L 500.2500 ####[facility] [address] [place], [address] Urea nitrogen [Mass/Vol] 20 mg/dL High 4-19 [facility] Comment on above: Performed By: #### L 500.2500 ####[facility] [address] [place], [place], [address] Carbon dioxide measurementOr dered By: Emilee Maguire on 07-29-2024 CO2 [Moles/Vol] 29.2 mmol/L High 22.0-29.0 [facility] Chloride measurementOrdered By: Emilee Maguire on 07-29-2024 Chloride [Moles/Vol] 101 mmol/L 96-108 [facility] Creatinine [Moles/Vol]Ordere d By: Emilee Maguire on 07-29-2024 Creatinine [Mass/Vol] 1.1 mg/dL 0.8-1.3 [facility] GFR/1.73 sq M.predicted tona g non-blacks MDRD (S/P/Bld) [Vol rate/Area]Ordered By: Emilee Maguire on 07-29-2024 Estimated GFR (MDRD) Non-Af Amer [address] >60 [facility] Comment on above: mL/min/1.73m2 CKD-EP I Creatinine Equation (2020) Internal Medicine Office Vis virgen 07-29-2024 Internal Medicine Office Visit [facility] [address] [place], [place] [address] OFFICE VISIT Date of Service: 07/29/24 MR#: [id number] Acct: [id number] Name: KATARINA BALDWIN Rep #: [id number] : 1955 Provider: Dr. Emilee galdamez MD Age/Sex: 68/M Location[place] [facility] Status: Signed Intake Vital Signs 03/18/24 10:42 07/29/24 10:32 Height 5 ft 7 in 5 ft 7 in Weight: 186 lb BMI 29.1 BP 138/70 H Blood Pressure Location Rt brachial Position Sitting Respiration 17 Pulse 79 Pulse Source Monitor Temp 98.4 F Temp Source Temporal Pulse Oximetry (%) 98 Oxygen Delivery Method room air Intake Visit Reasons: 4 M FU Chief Complaint: 4 M FU Is patient in pain?: No Allergies atorvastatin calcium (From Lipitor) Adverse Reaction (Verified 07/29/24 10:33) Other Medications ???Medication ???Instructions ???Recorded ???Confirmed ???Type amlodipine 10 mg tablet 10 mg PO QHS #90 tabs 09/18/23 Rx famotidine 20 mg tablet 20 mg PO BID #180 tabs 09/18/23 Rx rosuvastatin 5 mg tablet 5 mg PO QHS #90 tabs 09/18/2307/05 Rx chlorthalidone 25 mg tablet 12.5 mg (1/2 x 25 mg) PO DAILY #60 05/04/24 07/29/24 Rx tabs omeprazole 40 mg capsule,delayed 40 mg PO DAILY #90 caps 05/15/24 0 07/29/24 Rx release hydroxyzine HCl 25 mg tablet 25 mg PO ONCE PRN 07/29/24 5 History Have you fallen in the past year?: No [facility] Medical History (Updated 07/29/24 @ 15:[address] Emilee Maguire MD) Screening for cardiovascular condition Acute bronchitis, unspecified Health care maintenance Foot pain, bilateral Chronic neck pain Swallowing difficulty Generalized anxiety disorder Wears glasses Alcohol use Prostate disease High cholesterol Gastric reflux Non-smoker CPAP (continuous positive airway pressure) dependence History of edema Hypertension History of fracture of clavicle Preoperative evaluation to rule out surgical contraindication Flu vaccine need COVID-19 vaccine series completed Right knee pain Right shoulder pain Localized swelling of abdominal wall Gastroenteritis Low testosterone Right knee meniscal tear Elevated BP without diagnosis of hypertension Diastasis recti Ventral incisional hernia without obstruction or gangrene GERD (gastroesophageal reflux disease) Arthritis Obstructive sleep apnea BPH (benign prostatic hyperplasia) Cardiac dysrhythmia Cor athrscl-uns vessel High cholesterol Surgical History History of total right knee replacement Status post total right knee replacement Hx of repair of right rotator cuff S/P right rotator cuff repair History of removal of skin mole History of esophagogastroduodenoscopy (EGD) Hx of colonoscopy History of bilateral hip replacements History of tonsillectomy and adenoidectomy S/P ventral herniorrhaphy ( 04/07/18) History of total replacement of both hip joints Family History Father Heart disease Hypertension High cholesterol Bowel disease Depression Myocardial infarction, Onset Age: 62 Mother High cholesterol Arthritis Grandmother Cancer Social History Smoking Status: Never smoker alcohol intake: current alcohol intake frequency: holidays/special occasions only substance use type: does not use what type of physical activity do you participate in: walking, weight training and other frequency: 3-4 times per week HPI HPI Chief Complaint: 4 M FU Details: KATARINA BALDWIN, is a 68 M who presents to the office today for follow-up of his chronic conditions. History of hypertension, blood pressure today is at 138/70. Did come in with his log, which shows okay control. Readings ranging from a low of 109/73 to a high of 140/75. He states that he is taking his medication consistently but admits that due to the weather he has been less active overall. No chest pain, palpitation or shortness of breath. Other chronic medical conditions are largely stable. ROS Const Constitutional: No body ache, chills, excessive sweating, fatigue, fever(s), frequent falls, headache(s), snoring, weight change, sleep problems, abnormal sleep pattern or change in appetite Eyes Eyes: No blurry vision, change in vision, floaters, visual disturbances, eye pain or Light sensitivity ENT ENT: No abnormal hearing, ear or mastoid pain, tinnitus, balance problems, nosebleed/epistaxis, nasal congestion, headache(s), neck pain or sore throat Resp Respiratory: No cough, excessive phlegm production, pain on inspiration, shortness of breath, snoring or wheezing Cardio Cardiology: No chest pain at rest, chest pain with exertion, excessive sweating, shortness of mary (more content not included)... Normal [facility] Serum glucose measurement (m ass/volume)Ordered By: Emilee Maguire on 07-29-2024 Glucose [Mass/Vol] 101 mg/dL High 70-99 [facility] Serum or plasma anion gap de termination (moles/volume)Ordered By: Emilee Maguire on 07-29-2024 Anion gap [Moles/Vol] 12 mmol/L 5-15 [facility] Serum or plasma calcium hayden urement (mass/volume)Ordered By: Emilee Maguire on 07-29-2024 Calcium [Mass/Vol] 9.7 mg/dL 7.6-11.0 [facility] Serum or plasma potassium me asurementOrdered By: Jamtenstrikechio Maguire on 07-29-2024 Potassium [Moles/Vol] 3.7 mmol/L 3.3-5.1 [facility] Serum or plasma sodium measu rement (moles/volume)Ordered By: Emilee Maguire on 07-29-2024 Sodium [Moles/Vol] 141 mmol/L 133-145 [facility] Serum or plasma urea nitroge n measurement (mass/volume)Ordered By: Emilee Maguire on 07-29-2024 Urea nitrogen [Mass/Vol] 20 mg/dL High 4-19 [facility] Chest PA and Lateralon 05-05 Chest PA and Lateral [facility] Imaging Services [address] [place], [place] [id number] Chest PA and Lateral MR#: [id number] Acct: [id number] Name: KATARINA BALDWIN Rep #: [id number] : 1955 M 68 From: Geovani Santillan MD PCP: Dr. Emilee Maguire MD Status: REG CLI Study: Chest PA and Lateral Date of Exam: 05/05/24 Exam# [id number] Ordering Dr: Lamar Taylor PA :[id number] STUDY: X-RAY CHEST REASON FOR EXAM: Male, 68 years old. Cough x5 weeks TECHNIQUE: PA and lateral views of the chest. COMPARISON: 06/29/2021 FINDINGS: The lungs are clear and expanded. There is no demonstrated pleural abnormality. Normal size heart. Normal mediastinum and isra. Normal visualized pulmonary arteries. There is atherosclerotic calcification of the aortic arch with tortuosity. There are diffuse degenerative changes of the visualized thoracic spine. Normal visualized ribs, clavicles, and shoulders. There is no demonstrated abnormality of the visualized soft tissue structures of the upper abdomen. RAD/Chest PA and Lateral IMPRESSION: No acute pulmonary process Electronically Signed: Stan Santillan MD at 14:28 EST , CC: Dr. Emilee Maguire MD; MONIK Torres Commercial Kitchen Service Technician: Signed Normal [facility] Urgent Care Visit Reporton 1 07-06-2023 Urgent Care Visit Report [facility] [address], [address] [place] [id number] OFFICE VISIT Date of Service: 05/05/24 MR#: [id number] Acct: [id number] Name: KATARINA BALDWIN Rep #: [id number] : 1955 Provider: MONIK Torres Age/Sex: 68/M Location: [facility] Status: Signed Intake Vital Signs 03/18/24 10:42 05/05/24 13:15 Height 5 ft 7 in Weight: 188 lb BMI 29.4 BP 130/68 H 120/72 Blood Pressure Location Lt brachial Lt brachial Position Sitting Sitting Respiration 16 12 Pulse 64 82 Pulse Source Monitor NIBP Temp 97.9 F 97.7 F L Temp Source Temporal Oral Pulse Oximetry (%) 98 97 Oxygen Delivery Method room air room air Intake Visit Reasons: CONGESTION/COUGH/GARRIDO Chief Complaint: Congestion/Cough/BA Dictating Transcribing Machine Servicer Required: No Is patient in pain?: No Allergies atorvastatin calcium (From Lipitor) Adverse Reaction (Verified 05/05/24 13:16) Other Medications ???Medication ???Instructions ???Recorded ???Confirmed ???Type omeprazole 40 mg capsule,delayed 40 mg PO DAILY 05/31/23 05/05/24 History release amlodipine 10 mg tablet 10 mg PO QHS #90 tabs 09/18/23 05/05/24 Rx famotidine 20 mg tablet 20 mg PO BID #180 tabs 09/18/23 05/05/24 Rx rosuvastatin 5 mg tablet 5 mg PO QHS #90 tabs 09/18/23 05/05/24 Rx chlorthalidone 25 mg tablet 12.5 mg (1/2 x 25 mg) PO DAILY #60 05/04/24 05/05/24 Rx tabs amoxicillin 875 mg-potassium 1 tab PO BID #20 tabs 05/05/24 05/05/24 Rx clavulanate 125 mg tablet benzonatate 200 mg capsule 200 mg PO TID PRN cough #20 caps 05/05/24 05/05/24 Rx Have you fallen in the past year?: No Nurse's Note: patient here for cough, congestion, BA, has had since end of March, symptoms worsened in past 3 days. [facility] Medical History (Updated 05/05/24 @ 14:35 by Lamar RUGGIERO, PA) Acute bronchitis, unspecified Health care maintenance Foot pain, bilateral Chronic neck pain Swallowing difficulty Generalized anxiety disorder Wears glasses Alcohol use Prostate disease High cholesterol Gastric reflux Non-smoker CPAP (continuous positive airway pressure) dependence History of edema Hypertension History of fracture of clavicle Preoperative evaluation to rule out surgical contraindication Flu vaccine need COVID-19 vaccine series completed Right knee pain Right shoulder pain Localized swelling of abdominal wall Gastroenteritis Low testosterone Right knee meniscal tear Elevated BP without diagnosis of hypertension Diastasis recti Ventral incisional hernia without obstruction or gangrene GERD (gastroesophageal reflux disease) Arthritis Obstructive sleep apnea BPH (benign prostatic hyperplasia) Cardiac dysrhythmia Cor athrscl-uns vessel High cholesterol Surgical History History of total right knee replacement Status post total right knee replacement Hx of repair of right rotator cuff S/P right rotator cuff repair History of removal of skin mole History of esophagogastroduodenoscopy (EGD) Hx of colonoscopy History of bilateral hip replacements History of tonsillectomy and adenoidectomy S/P ventral herniorrhaphy ( 04/07/18) History of total replacement of both hip joints Family History Father Heart disease Hypertension High cholesterol Bowel disease Depression Myocardial infarction, Onset Age: 62 Mother High cholesterol Arthritis Grandmother Cancer Social History Smoking Status: Never smoker alcohol intake: current alcohol intake frequency: holidays/special occasions only substance use type: does not use what type of physical activity do you participate in: walking, weight training and other frequency: 3-4 times per week HPI HPI Chief Complaint: Congestion/Cough/BA Details: KATARINA BALDWIN, is a 68 M who presents to the office today for 5 wk history of persistent moist nonproductive cough, though noting more fatigued last 3-5 days. No fever, chills, bobby. Non-smoker. No fqxm-vju-ajuoykk products taken to assist. No close contacts with similar complaints. No other associated symptoms and no other alleviating/aggravating factors. ROS Const Constitutional: No other (as above) Exam Const General: cooperative, healthy appearing and no acute distress Nutritional Appearance: average body habitus Orientation: alert, awake and oriented x3 HENMT Head: normal to inspection Ears: hearing grossly normal bilaterally, external ears normal, TM's normal bilaterally and EAC's normal Nose: external nose normal, nares normal, septum normal and no nasal discharge Face and sinus: normal facial exam, sinuses nontender and face symmetric Mouth: oral mucosae normal, lip iveth (more content not included)... Normal [facility] Basic Metabolic Profile (BMP )on 03-18-2024 BUN/CRE 21.6 RATIO High 03-22 [facility] Comment on above: Performed By: #### L 500.2500 ####[facility] [address] [place], [address] CA,Total 9.8 mg/dL Normal 8.5-10.1 [facility] Comment on above: Performed By: #### L 500.2500 ####[facility] [address] [place], [address] Chloride [Moles/Vol] 104 mmol/L Normal 98-107 [facility] Comment on above: Performed By: #### L 500.2500 ####[facility] [address] [place], [address] CO2 [Moles/Vol] 32.0 mmol/L Normal 21.0-32.0 [facility] Comment on above: Performed By: #### L 500.2500 ####[facility] [address] [place], [address] Creatinine [Mass/Vol] 1.16 mg/dL Normal 0.70-1.30 [facility] Comment on above: Result Comment: The validity of the calculated GFR GFRAA in patients over 70 years has not been determined. Clinical correlation is essential. Performed By: #### L 500.2500 ####[facility] [address] [place], [address] EST GFR - AA 81 mL/min Normal >60 [facility] Comment on above: Result Comment: Afri can [place] GFR Calc Performed By: #### L 500.2500 ####[facility] [address] [place], [address] GAP 6 Normal 5-15 [facility] Comment on above: Performed By: #### L 500.2500 ####[facility] [address] [place], [address] GFR/1.73 sq M.predicted among non-blacks MDRD (S/P/Bld) [Vol rate/Area] 67 mL/min/{1.73_m2} Normal >60 [facility] Comment on above: Result Comment: Non- GFR Calc Performed By: #### L 500.2500 ####[facility] [address] [place], [address] Glucose [Mass/Vol] 95 mg/dL Normal 74-106 [facility] Comment on above: Performed By: #### L 500.2500 ####[facility] [address] [place], [address] Potassium [Moles/Vol] 4.1 mmol/L Normal 3.5-5.1 [facility] Comment on above: Performed By: #### L 500.2500 ####[facility] [address] [place], [address] Sodium [Moles/Vol] 142 mmol/L Normal 136-145 [facility] Comment on above: Performed By: #### L 500.2500 ####[facility] [address] [place], [address] Urea nitrogen [Mass/Vol] 25 mg/dL High 7-18 [facility] Comment on above: Performed By: #### L 500.2500 ####[facility] [address] [place], [address] Internal Medicine Office Vis virgen 03-18-2024 Internal Medicine Office Visit [facility] [address] [place] [address] [place] [address] OFFICE VISIT Date of Service: 03/18/24 MR#: [id number] Acct: [id number] Name: KATARINA BALDWIN Rep #: [id number] : 1955 Provider: Dr. Emilee galdamez MD Age/Sex: 68/M Location[place] [facility] Status: Signed Intake Vital Signs 01/01/24 09:23 02/11/24 08:26 03/18/24 10:42 Height 5 ft 7 in 5 ft 7 in 5 ft 7 in Weight: 188 lb BMI 29.4 BP 130/68 H Blood Pressure Location Lt brachial Position Sitting Respiration 16 Pulse 64 Pulse Source Monitor Temp 97.9 F Temp Source Temporal Pulse Oximetry (%) 98 Oxygen Delivery Method room air Intake Visit Reasons: 3 M FU Chief Complaint: FU Chronic Conditions Dictating Transcribing Machine Servicer Required: No Accompanied by: Self Is patient in pain?: No Allergies atorvastatin calcium (From Lipitor) Adverse Reaction (Verified 03/18/24 10:37) Other Medications ???Medication ???Instructions ???Recorded ???Confirmed ???Type omeprazole 40 mg capsule,delayed 40 mg PO DAILY 05/31/23 03/18/24 History release amlodipine 10 mg tablet 10 mg PO QHS #90 tabs 09/18/23 03/18/24 Rx famotidine 20 mg tablet 20 mg PO BID #180 tabs 09/18/23 03/18/24 Rx rosuvastatin 5 mg tablet 5 mg PO QHS #90 tabs 09/18/23 03/18/24 Rx chlorthalidone 25 mg tablet 12.5 mg (1/2 x 25 mg) PO DAILY #30 01/01/24 03/18/24 Rx tabs Have you fallen in the past year?: No PFSH Medical History (Updated 03/18/24 @ 12:[address] Emilee Maguire MD) Health care maintenance Foot pain, bilateral Chronic neck pain Swallowing difficulty Generalized anxiety disorder Wears glasses Alcohol use Prostate disease High cholesterol Gastric reflux Non-smoker CPAP (continuous positive airway pressure) dependence History of edema Hypertension History of fracture of clavicle Preoperative evaluation to rule out surgical contraindication Flu vaccine need COVID-19 vaccine series completed Right knee pain Right shoulder pain Localized swelling of abdominal wall Gastroenteritis Low testosterone Right knee meniscal tear Elevated BP without diagnosis of hypertension Diastasis recti Ventral incisional hernia without obstruction or gangrene GERD (gastroesophageal reflux disease) Arthritis Obstructive sleep apnea BPH (benign prostatic hyperplasia) Cardiac dysrhythmia Cor athrscl-uns vessel High cholesterol Surgical History History of total right knee replacement Status post total right knee replacement Hx of repair of right rotator cuff S/P right rotator cuff repair History of removal of skin mole History of esophagogastroduodenoscopy (EGD) Hx of colonoscopy History of bilateral hip replacements History of tonsillectomy and adenoidectomy S/P ventral herniorrhaphy ( 04/07/18) History of total replacement of both hip joints Family History Father Heart disease Hypertension High cholesterol Bowel disease Depression Myocardial infarction, Onset Age: 62 Mother High cholesterol Arthritis Grandmother Cancer Social History Smoking Status: Never smoker alcohol intake: current alcohol intake frequency: holidays/special occasions only substance use type: does not use what type of physical activity do you participate in: walking, weight training and other frequency: 3-4 times per week HPI HPI Chief Complaint: FU Chronic Conditions Details: KATARINA BALDWIN, is a 68 M who presents to the office today for follow-up of his chronic medical conditions. No acute concerns at this time. History of hypertension on chlorthalidone and amlodipine. Tolerating both medications well. Home readings on average have been in the upper 120s. Continues to stay active. No chest pain, palpitation or shortness of breath. Other chronic medical conditions are stable. Currently on rosuvastatin for hyperlipidemia, no muscle pain or weakness reported. ROS Const Constitutional: No body ache, chills, excessive sweating, fatigue, fever(s), frequent falls, headache(s), snoring, weakness or change in appetite Eyes Eyes: No blurry vision, change in vision, floaters, visual disturbances, eye pain or Light sensitivity ENT ENT: No abnormal hearing, ear or mastoid pain, tinnitus, balance problems, nosebleed/epistaxis, nasal congestion, headache(s), neck pain or sore throat Resp Respiratory: No cough, excessive phlegm production, pain on inspiration, shortness of breath, snoring or wheezing Cardio Cardiology: No chest pain at rest, chest pain with exertion, excessive sweating, dyspnea on exertion, lightheadedness, orthopnea or palpitations Gastro GI: No abdominal pain, change in bowel habits, constipation, cramping, (more content not included)... Normal [facility] CREATININE FINGERSTICKon CREATININE WB < 1.0 Normal 0.70-1.30 [facility] Comment on above: Performed By: #### L 9100.0200 ####[facility] [address] [place], [place], [id number] EGFR WB > 60.0000 Normal >60 [facility] Comment on above: Performed By: #### L 9100.0200 ####[facility] [address] [place], [address] Pelvis W/WO Contraston 02-18 Pelvis W/WO Contrast [facility] [address] [place] [address] Pelvis W/WO Contrast MR#: [id number] Acct: [id number] Name: KATARINA BALDWIN Rep #: [id number] : 1955 M 68 From: Kofi browning MD PCP: Dr. Emilee Maguire MD Status: REG CLI Study: Pelvis W/WO Contrast Date of Exam: 02/19/24 Exam# [id number] Ordering Dr: Tom Leon MD :[id number] EXAMINATION: MR Pelvis WO/W Contrast COMPARISON: None CLINICAL HISTORY: 68-year-old male with elevated PSA Most recent PSA = 7.9 ng/ml; PSA date = 01/22/2024 TECHNIQUE: Standard prostate MR protocol was used before and after administration of 17 cc of IV Clariscan. FINDINGS: Prostate volume: 75 cc PSA density: 0.10 ng/ml2 Length of membranous urethra: 14 mm Post-biopsy hemorrhage: None Multiparametric MR evaluation: Heterogeneous appearance of the central gland is consistent with benign prostatic hyperplasia. Heterogeneous T2 hypointensity throughout the peripheral zone. No suspicious focal T2 hypointense or diffusion restricting lesions. Capsular margin and neurovascular bundle: Normal Seminal vesicles: Normal Lymph nodes: No lymphadenopathy in the field of view. Bones: No suspicious lesions in the field of view. MRI/Pelvis W/WO Contrast IMPRESSION: PI-RADS 2: Benign prostatic hyperplasia and prostatitis. No suspicious focal T2 hypointense or diffusion restricting lesions. Electronically Signed: Kofi Moore MD at 0:18 EDT , CC: Dr. Emilee Maguire MD; Dr. Tom Leon MD Commercial Kitchen Service Technician: Signed Normal [facility] Pulmonary Visit Reporton Pulmonary Visit Report [facility] [address] [place] [address] OFFICE VISIT Date of Service: 02/11/24 MR#: [id number] Acct: [id number] Name: KATARINA BALDWIN Rep #: [id number] : 1955 Provider: KAREN Ronquillo Age/Sex: 68/M Location[place] [facility] Status: Signed Assessment and Plan Assessment and Plan (1) Obstructive sleep apnea: Status: Chronic Comment: AHI 17, CPAP 11 cm of water by nasal interface Plan: He is using and benefiting from Pap therapy. No indication for titration study at this time. Contact the office for any new or worsening symptoms in the meantime. Follow-up in 1 year. Plan Details Follow Up: 1 Year ([facility]) HPI 1 Y FU Chief Complaint: Annual follow-up HPI Comments Details: This patient presents to the office today for annual follow-up of his obstructive sleep apnea. He is ambulatory and currently on room air. He has not recently been seen in the ED or urgent care for respiratory illness. Has not required any antibiotics or prednisone for any breathing problems. He denies any difficulty with shortness of breath. He denies any cough, sputum production or hemoptysis. He denies any wheezing, chest tightness, chest pain or palpitations. He also denies any fever, chills or body aches. The patient reports excellent compliance with his PAP device. He does admit to an occasional daytime nap without his machine. He denies any difficulty with morning headaches or dry mouth. He is not having excessive nocturia. Compliance report for the past 30 days shows 100% compliance with average use of 7 hours and 45 minutes per night. Current setting is CPAP 11 cmH2O with residual AHI of 3.7 events per hour. Leaks do not appear to be problematic. Intake Vital Signs 02/05/23 05:45 06/19/23 09:36 01/01/24 09:23 02/11/24 08:26 Height 5 ft 7 in 5 ft 7 in 5 ft 7 in 5 ft 7 in Weight: 187 lb BMI 29.2 BP 115/61 Blood Pressure Location Lt brachial Position Sitting Respiration 20 H Pulse 75 Pulse Source Monitor Temp 97.6 F L Temperature Source Temporal Artery Pulse Oximetry (%) 95 Oxygen Delivery Method room air Intake Visit Reasons: 1 Y FU Dictating Transcribing Machine Servicer Required: No DME Vendor: cpap- [employer] Accompanied by: Self Is patient in pain?: No Allergies atorvastatin calcium (From Lipitor) Adverse Reaction (Verified 01/01/24 09:19) Other Medications ???Medication ???Instructions ???Recorded ???Confirmed ???Type hydroxyzine HCl 25 mg tablet 25 mg PO BID PRN anxiety #180 tabs 02/28/23 02/11/24 Rx omeprazole 40 mg capsule,delayed 40 mg PO DAILY 05/31/23 02/11/24 History release amlodipine 10 mg tablet 10 mg PO QHS #90 tabs 09/18/23 02/11/24 Rx famotidine 20 mg tablet 20 mg PO BID #180 tabs 09/18/23 02/11/24 Rx rosuvastatin 5 mg tablet 5 mg PO QHS #90 tabs 09/18/23 02/11/24 Rx chlorthalidone 25 mg tablet 12.5 mg (1/2 x 25 mg) PO DAILY #30 01/01/24 02/11/24 Rx tabs Have you fallen in the past year?: No PFSH Medical History Foot pain, bilateral Chronic neck pain Swallowing difficulty Generalized anxiety disorder Wears glasses Alcohol use Prostate disease High cholesterol Gastric reflux Non-smoker CPAP (continuous positive airway pressure) dependence History of edema Hypertension History of fracture of clavicle Preoperative evaluation to rule out surgical contraindication Flu vaccine need COVID-19 vaccine series completed Right knee pain Right shoulder pain Localized swelling of abdominal wall Gastroenteritis Low testosterone Right knee meniscal tear Elevated BP without diagnosis of hypertension Diastasis recti Ventral incisional hernia without obstruction or gangrene GERD (gastroesophageal reflux disease) Arthritis Obstructive sleep apnea BPH (benign prostatic hyperplasia) Cardiac dysrhythmia Cor athrscl-uns vessel High cholesterol Surgical History History of total right knee replacement Status post total right knee replacement Hx of repair of right rotator cuff S/P right rotator cuff repair History of removal of skin mole History of esophagogastroduodenoscopy (EGD) Hx of colonoscopy History of bilateral hip replacements History of tonsillectomy and adenoidectomy S/P ventral herniorrhaphy ( 04/07/18) History of total replacement of both hip joints Family History Father Heart disease Hypertension High cholesterol Bowel disease Depression Myocardial infarction, Onset Age: 62 Mother High cholesterol Arthritis Grandmother Cancer Social History Smoking S (more content not included)... Normal [facility] PSA Total+%Freeon 01-30-2024 PSA, FREE 1.80 ng/mL Normal N/A [facility] Comment on above: Result Comment: Grabiel WONG methodology. Performed By: #### L 3110.0500 ####[facility] [address] [place], [address] PSA, FREE % 22.[address] [facility] Comment on above: Result Comment: The table below lists the probability of prostate cancer for men with non-suspicious [place] results and total PSA between 4 and 10 ng/mL, by patient age (Sohail et al, RAMILA 1998, 279:1542). % Free PSA 50-64 yr 65-75 yr 0.00-10.00% 56% 55% 10.01-15.00% 24% 35% 15.01-20.00% 17% 23% 20.01-25.00% 10% 20% >25.00% 5% 9% Please note: Sohail et al did not make specific recommendations regarding the use of percent free PSA for any other population of men. Performed at: [facility] [address] [place] [id number] [employer] Machine Operator: Ta Isabel PhD, Phone: [phone] Performed By: #### L 3110.0500 ####[facility] [address] [place], [address] PSA, TOTAL ULTR 7.900 ng/mL Abnormal 0.000-4.000 [facility] Comment on above: Result Comment: Grabiel krishna ECLIA methodology. According to the [place] [employer], Serum PSA should decrease and remain at undetectable levels after radical prostatectomy. The AUA defines biochemical recurrence as an initial PSA value 0.200 ng/mL or greater followed by a subsequent confirmatory PSA value 0.200 ng/mL or greater. Values obtained with different assay methods or kits cannot be used interchangeably. Results cannot be interpreted as absolute evidence of the presence or absence of malignant disease. Performed By: #### L 3110.0500 ####[facility] [address] [place], [address] PSA,Total- Diagnosticon 08-2 PSA, DIAGNOSTIC 7.91 ng/mL High 0.0-4.0 [facility] Comment on above: Result Comment: This test was performed using the TPSA assay method for the Metaforic chemistry system. Values obtained with different assay methods cannot be used interchangably. When changing PSA assays in the course of monitoring a patient, additional sequential testing should be carried out to confirm baseline values. Performed By: #### L 501.9940 ####[facility] [address] [place], [address] CBC W/Diff, Automatedon 07-3 Absolute Lymph 1.42 X10 3/uL Normal 0.83-4.51 [facility] Comment on above: Performed By: #### L 500.4050, L506.0400, L501.9520, L100.0100, L500.4100 #### [facility] [address] [place], [address] Absolute Neut 3.7 X10 3/uL Normal 2.0-7.7 [facility] Comment on above: Performed By: #### L 500.4050, L506.0400, L501.9520, L100.0100, L500.4100 #### [facility] [address] [place], [address] Basophils/100 WBC (Bld) 0.5 % Normal 0-1 [facility] Comment on above: Performed By: #### L 500.4050, L506.0400, L501.9520, L100.0100, L500.4100 #### [facility] [address] [place], [address] Eosinophils/100 WBC (Bld) 2.3 % Normal 0-5 [facility] Comment on above: Performed By: #### L 500.4050, L506.0400, L501.9520, L100.0100, L500.4100 #### [facility] [address] [place], [address] Erythrocyte distribution width (RBC) [Ratio] 13.1 % Normal 11.6-14.6 [facility] Comment on above: Performed By: #### L 500.4050, L506.0400, L501.9520, L100.0100, L500.4100 #### [facility] [address] [place], [address] Hematocrit (Bld) [Volume fraction] 48.9 % Normal 40-54 [facility] Comment on above: Performed By: #### L 500.4050, L506.0400, L501.9520, L100.0100, L500.4100 #### [facility] [address] [place], [address] Hemoglobin (Bld) [Mass/Vol] 16.6 g/dL High 13.0-16.5 [facility] Comment on above: Performed By: #### L 500.4050, L506.0400, L501.9520, L100.0100, L500.4100 #### [facility] [address] [place], [address] IG% 0.500 Normal 0.0-0.9 [facility] Comment on above: Result Comment: IG% - Immature Granulocytes (promyelocytes, myelocytes and metamyelocytes) > 1% indicates that a LEFT SHIFT is Present. Performed By: #### L 500.4050, L506.0400, L501.9520, L100.0100, L500.4100 #### [facility] [address] [place], [address] Lymphocytes/100 WBC (Bld) 23.2 % Normal 19-41 [facility] Comment on above: Performed By: #### L 500.4050, L506.0400, L501.9520, L100.0100, L500.4100 #### [facility] [address] [place], [address] MCH (RBC) [Entitic mass] 29.4 pg Normal 27.0-32.0 [facility] Comment on above: Performed By: #### L 500.4050, L506.0400, L501.9520, L100.0100, L500.4100 #### [facility] [address] [place], [address] MCHC (RBC) [Mass/Vol] 33.9 g/dL Normal 32-36 [facility] Comment on above: Performed By: #### L 500.4050, L506.0400, L501.9520, L100.0100, L500.4100 #### [facility] [address] [place], [address] MCV (RBC) [Entitic vol] 86.7 fL Normal 80-94 [facility] Comment on above: Performed By: #### L 500.4050, L506.0400, L501.9520, L100.0100, L500.4100 #### [facility] [address] [place], [address] Monocytes/100 WBC (Bld) 12.4 % High 0-10 [facility] Comment on above: Performed By: #### L 500.4050, L506.0400, L501.9520, L100.0100, L500.4100 #### [facility] [address] [place], [address] Neutrophils/100 WBC (Bld) 61.1 % Normal 47-70 [facility] Comment on above: Performed By: #### L 500.4050, L506.0400, L501.9520, L100.0100, L500.4100 #### [facility] [address] [place], [address] Nucleated RBC (Bld) [#/Vol] 0 10*3/uL Normal 0-5 [facility] Comment on above: Performed By: #### L 500.4050, L506.0400, L501.9520, L100.0100, L500.4100 #### [facility] [address] [place], [address] Platelet mean volume (Bld) [Entitic vol] 9.9 fL Normal 6.2-12.0 [facility] Comment on above: Performed By: #### L 500.4050, L506.0400, L501.9520, L100.0100, L500.4100 #### [facility] [address] [place], [address] Platelets (Bld) [#/Vol] 279 10*3/uL Normal 150-450 [facility] Comment on above: Performed By: #### L 500.4050, L506.0400, L501.9520, L100.0100, L500.4100 #### [facility] [address] [place], [address] RBC (Bld) [#/Vol] 5.64 10*6/uL Normal 4.6-6.2 [facility] Comment on above: Performed By: #### L 500.4050, L506.0400, L501.9520, L100.0100, L500.4100 #### [facility] [address] [place], [address] RDW SD 40.7 fl Normal 35.1-43.9 [facility] Comment on above: Performed By: #### L 500.4050, L506.0400, L501.9520, L100.0100, L500.4100 #### [facility] [address] [place], [address] WBC (Bld) [#/Vol] 6.1 10*3/uL Normal 4.4-11.0 [facility] Comment on above: Performed By: #### L 500.4050, L506.0400, L501.9520, L100.0100, L500.4100 #### [facility] [address] [place], [address] [facility] 01-01-2024 Albumin [Mass/Vol] 4.0 g/dL Normal 3.2-5.0 [facility] Comment on above: Performed By: #### L 500.4050, L506.0400, L501.9520, L100.0100, L500.4100 #### [facility] [address] [place], [address] Albumin/Globulin [Mass ratio] 1.2 {ratio} Normal 0.9-2.4 [facility] Comment on above: Performed By: #### L 500.4050, L506.0400, L501.9520, L100.0100, L500.4100 #### [facility] [address] [place], [address] ALK P 107 U/L Normal 45-117 [facility] Comment on above: Performed By: #### L 500.4050, L506.0400, L501.9520, L100.0100, L500.4100 #### [facility] [address] [place], [address] ALT [Catalytic activity/Vol] 40 U/L Normal 16-61 [facility] Comment on above: Performed By: #### L 500.4050, L506.0400, L501.9520, L100.0100, L500.4100 #### [facility] [address] [place], [address] AST [Catalytic activity/Vol] 12 U/L Low 15-37 [facility] Comment on above: Performed By: #### L 500.4050, L506.0400, L501.9520, L100.0100, L500.4100 #### [facility] [address] [place], [address] Bilirubin [Mass/Vol] 0.70 mg/dL Normal 0.20-1.00 [facility] Comment on above: Result Comment: For patients on eltrombopag therapy, use of Dimension Martin TBIL is not recommended. Performed By: #### L 500.4050, L506.0400, L501.9520, L100.0100, L500.4100 #### [facility] [address] [place], [address] BUN/CRE 13.9 RATIO Normal 10-20 [facility] Comment on above: Performed By: #### L 500.4050, L506.0400, L501.9520, L100.0100, L500.4100 #### [facility] [address] [place], [address] CA,Total 9.1 mg/dL Normal 8.5-10.1 [facility] Comment on above: Performed By: #### L 500.4050, L506.0400, L501.9520, L100.0100, L500.4100 #### [facility] [address] [place], [address] Chloride [Moles/Vol] 108 mmol/L High 98-107 [facility] Comment on above: Performed By: #### L 500.4050, L506.0400, L501.9520, L100.0100, L500.4100 #### [facility] [address] [place], [address] CO2 [Moles/Vol] 28.0 mmol/L Normal 21.0-32.0 [facility] Comment on above: Performed By: #### L 500.4050, L506.0400, L501.9520, L100.0100, L500.4100 #### [facility] [address] [place], [address] Creatinine [Mass/Vol] 1.01 mg/dL Normal 0.70-1.30 [facility] Comment on above: Result Comment: The validity of the calculated GFR GFRAA in patients over 70 years has not been determined. Clinical correlation is essential. Performed By: #### L 500.4050, L506.0400, L501.9520, L100.0100, L500.4100 #### [facility] [address] [place], [address] EST GFR - AA 95 mL/min Normal >60 [facility] Comment on above: Result Comment: Afri can [place] GFR Calc Performed By: #### L 500.4050, L506.0400, L501.9520, L100.0100, L500.4100 #### [facility] [address] [place], [address] GAP 3 Low 5-15 [facility] Comment on above: Performed By: #### L 500.4050, L506.0400, L501.9520, L100.0100, L500.4100 #### [facility] [address] [place], [address] GFR/1.73 sq M.predicted among non-blacks MDRD (S/P/Bld) [Vol rate/Area] 79 mL/min/{1.73_m2} Normal >60 [facility] Comment on above: Result Comment: Non- GFR Calc Performed By: #### L 500.4050, L506.0400, L501.9520, L100.0100, L500.4100 #### [facility] [address] [place], [address] Globulin (S) [Mass/Vol] 3.3 g/dL Normal 2.2-4.2 [facility] Comment on above: Performed By: #### L 500.4050, L506.0400, L501.9520, L100.0100, L500.4100 #### [facility] [address] [place], [address] Glucose [Mass/Vol] 105 mg/dL Normal 74-106 [facility] Comment on above: Result Comment: Fast ing Glucose result from 100 to 125 mg/dL suggests IMPAIRED HOMEOSTASIS per A.D.A. criteria. Performed By: #### L 500.4050, L506.0400, L501.9520, L100.0100, L500.4100 #### [facility] [address] [place], [address] Potassium [Moles/Vol] 4.1 mmol/L Normal 3.5-5.1 [facility] Comment on above: Performed By: #### L 500.4050, L506.0400, L501.9520, L100.0100, L500.4100 #### [facility] [address] [place], [address] Sodium [Moles/Vol] 139 mmol/L Normal 136-145 [facility] Comment on above: Performed By: #### L 500.4050, L506.0400, L501.9520, L100.0100, L500.4100 #### [facility] [address] [place], [address] T PROT 7.3 g/dL Normal 6.4-8.2 [facility] Comment on above: Performed By: #### L 500.4050, L506.0400, L501.9520, L100.0100, L500.4100 #### [facility] [address] [place], [address] Urea nitrogen [Mass/Vol] 14 mg/dL Normal 7-18 [facility] Comment on above: Performed By: #### L 500.4050, L506.0400, L501.9520, L100.0100, L500.4100 #### [facility] [address] [place], [address] Internal Medicine Office Vis iton 01-01-2024 Internal Medicine Office Visit [facility] [address] [place], [place] [address] OFFICE VISIT Date of Service: 01/01/24 MR#: [id number] Acct: [id number] Name: KATARINA BALDWIN Rep #: [id number] : 1955 Provider: Dr. Emilee galdamez MD Age/Sex: 68/M Location[place] [facility] Status: Signed Intake Vital Signs 09/18/23 09:41 01/01/24 09:23 Height 5 ft 7 in 5 ft 7 in Weight: 188 lb BMI 29.4 BP 142/88 H Blood Pressure Location Lt brachial Position Sitting Respiration 14 Pulse 75 Pulse Source Monitor Temp 98.1 F Temp Source Temporal Pulse Oximetry (%) 97 Oxygen Delivery Method room air Intake Visit Reasons: 3 M FU Chief Complaint: FU Chronic Conditions Dictating Transcribing Machine Servicer Required: No Is patient in pain?: No Allergies atorvastatin calcium (From Lipitor) Adverse Reaction (Verified 01/01/24 09:19) Other Medications ???Medication ???Instructions ???Recorded ???Confirmed ???Type hydroxyzine HCl 25 mg tablet 25 mg PO BID PRN anxiety #180 tabs 02/28/23 01/01/24 Rx omeprazole 40 mg capsule,delayed 40 mg PO DAILY 05/31/23 01/01/24 History release silver sulfadiazine 1 % topical 1 applic topical BID #50 grams 06/01/23 01/01/24 Rx cream (Silvadene) amlodipine 10 mg tablet 10 mg PO QHS #90 tabs 09/18/23 01/01/24 Rx famotidine 20 mg tablet 20 mg PO BID #180 tabs 09/18/23 01/01/24 Rx rosuvastatin 5 mg tablet 5 mg PO QHS #90 tabs 09/18/23 01/01/24 Rx chlorthalidone 25 mg tablet 12.5 mg (1/2 x 25 mg) PO DAILY #30 01/01/24 01/01/24 Rx tabs Have you fallen in the past year?: No PFSH Medical History Foot pain, bilateral Chronic neck pain Swallowing difficulty Generalized anxiety disorder Wears glasses Alcohol use Prostate disease High cholesterol Gastric reflux Non-smoker CPAP (continuous positive airway pressure) dependence History of edema Hypertension History of fracture of clavicle Preoperative evaluation to rule out surgical contraindication Flu vaccine need COVID-19 vaccine series completed Right knee pain Right shoulder pain Localized swelling of abdominal wall Gastroenteritis Low testosterone Right knee meniscal tear Elevated BP without diagnosis of hypertension Diastasis recti Ventral incisional hernia without obstruction or gangrene GERD (gastroesophageal reflux disease) Arthritis Obstructive sleep apnea BPH (benign prostatic hyperplasia) Cardiac dysrhythmia Cor athrscl-uns vessel High cholesterol Surgical History History of total right knee replacement Status post total right knee replacement Hx of repair of right rotator cuff S/P right rotator cuff repair History of removal of skin mole History of esophagogastroduodenoscopy (EGD) Hx of colonoscopy History of bilateral hip replacements History of tonsillectomy and adenoidectomy S/P ventral herniorrhaphy ( 04/07/18) History of total replacement of both hip joints Family History Father Heart disease Hypertension High cholesterol Bowel disease Depression Myocardial infarction, Onset Age: 62 Mother High cholesterol Arthritis Grandmother Cancer Social History Smoking Status: Never smoker alcohol intake: current alcohol intake frequency: holidays/special occasions only substance use type: does not use what type of physical activity do you participate in: walking, weight training and other frequency: 3-4 times per week HPI HPI Chief Complaint: FU Chronic Conditions Details: KATARINA BALDWIN, is a 68 M who presents to the office today for follow up of his chronic medical conditions. No acute concerns at this time. History of hypertension, blood pressure today at 142/88. Home log reviewed and on average, similar readings at home. He states that for the most part he remains very active playing [employer] ball most days of the week. Has not changed his diet. Currently at a BMI of 29.4. Has been on amlodipine which he continues to take consistently. No chest pain, palpitation or shortness of breath. History of sleep apnea, he reports compliance with his CPAP and reports feeling well rested when he wakes up. Other chronic medical conditions are stable. ROS Const Constitutional: No body ache, chills, excessive sweating, fatigue, fever(s), frequent falls, headache(s), snoring, weakness, sleep problems or change in appetite Eyes Eyes: No blurry vision, change in vision, bulging eyes, eye pain or Light sensitivity ENT ENT: No abnormal hearing, ear or mastoid pain, tinnitus, balance problems, nosebleed/epistaxis, nasal congestion, headache(s), neck pain or sore throat Resp (more content not included)... Normal [facility] Lipid Profileon 01-01-2024 Cholesterol [Mass/Vol] 121 mg/dL Normal 200 [facility] Comment on above: Result Comment: <200 mg/dL Desirable 200-240 mg/dL Borderline >240 mg/dL High Risk Performed By: #### L 500.4050, L506.0400, L501.9520, L100.0100, L500.4100 #### [facility] [address], [address] Cholesterol in HDL [Mass/Vol] 39 mg/dL Low [facility] Comment on above: Result Comment: The drugs N-Acetylcysteine and Metamizole may falsely depress this assay. Reference Range HDL <40 mg/dL Low HDL Cholesterol HDL >or= 60 mg/dL High HDL Cholesterol Performed By: #### L 500.4050, L506.0400, L501.9520, L100.0100, L500.4100 #### [facility] [address] [place], [address] Cholesterol in LDL [Mass/Vol] 71 mg/dL Normal 0-130 [facility] Comment on above: Performed By: #### L 500.4050, L506.0400, L501.9520, L100.0100, L500.4100 #### [facility] [address] [place], [address] Cholesterol in VLDL [Mass/Vol] 11 mg/dL Normal 5-40 [facility] Comment on above: Performed By: #### L 500.4050, L506.0400, L501.9520, L100.0100, L500.4100 #### [facility] [address] [place], [address] Triglyceride [Mass/Vol] 54 mg/dL Normal [facility] Comment on above: Result Comment: The drugs N-Acetylcysteine and Metamizole may falsely depress this assay. Serum Triglycerides Reference Interval Normal <150 mg/dL Borderline high 150 - 199 mg/dL High 200 - 499 mg/dL Very High > or = 500 mg/dL Performed By: #### L 500.4050, L506.0400, L501.9520, L100.0100, L500.4100 #### [facility] [address] [place], [address] T4 Free Directon 01-01-2024 T4 FREE DIRECT 0.94 ng/dL Normal 0.76-1.46 [facility] Comment on above: Performed By: #### L 500.4050, L506.0400, L501.9520, L100.0100, L500.4100 ####[facility] [address] [place], [address] Thyroid Stim Hormone (TSH)on 01-01-2024 TSH 2.33 uIU/mL Normal 0.358-3.74 [facility] Comment on above: Performed By: #### L 500.4050, L506.0400, L501.9520, L100.0100, L500.4100 #### [facility] [address] [place], [address] No Panel InformationOrdered By: Tom Leon on 04-08-2023 Prostate Specific Antigen Total 6.08 ng/mL 0.0-4.0 [facility] Comment on above: This test was perfor med using the TPSA assay method for [email or web address] chemistry system. Values obtained with differentassay methods cannot be used interchangably.When changing PSA assays in the course of monitoring apatient, additional sequential testing should be carriedout to confirm baseline values. Absolute lymphocyte countOrd ered By: Emilee Maguire on 02-11-2023 Lymphocytes Auto (Unsp spec) [#/Vol] 1.42 10*3/uL 0.83-4.51 [facility] Basophil percentageOrdered B y: Noemisolejuan mchio Charleslobito on 02-11-2023 Basophils/100 WBC (Bld) 0.5 % 0-1 [facility] Bilirubin [Mass/Vol] 0.70 mg/dL 0.20-1.00 [facility] Comment on above: For patients on eltr ombopag therapy, use of Dimension Martin TBIL is not recommended. Chloride [Moles/Vol] 108 mmol/L 98-107 [facility] Cholesterol [Mass/Vol] 130 mg/dL <200 [facility] Comment on above: <200 mg/dL Desirable 200-240 mg/dL Borderline >240 mg/dL High Risk Eosinophils/100 WBC (Bld) 2.8 % 0-5 [facility] Glucose [Mass/Vol] 103 mg/dL 74-106 [facility] Comment on above: Fasting Glucose resu lt from 100 to 125 mg/dL suggests IMPAIRED HOMEOSTASIS per A.D.A. criteria. Neutrophils (Bld) [#/Vol] 3.6 10*3/uL 2.0-7.7 [facility] Neutrophils/100 WBC (Bld) 61.5 % 47-70 [facility] Potassium [Moles/Vol] 4.2 mmol/L 3.5-5.1 [facility] Protein [Mass/Vol] 7.3 g/dL 6.4-8.2 [facility] Sodium [Moles/Vol] 141 mmol/L 136-145 [facility] Triglyceride [Mass/Vol] 67 mg/dL <199 [facility] Comment on above: The drugs N-Acetylcy steine and Metamizole may falsely depress this assay.Serum Triglycerides Reference Interval Normal <150 mg/dL Borderline high 150 - 199 mg/dL High 200 - 499 mg/dL Very High > or = 500 mg/dL WBC (Bld) [#/Vol] 5.8 10*3/uL 4.4-11.0 [facility] Blood erythrocytes count (nu mber/volume)Ordered By: Emilee Maguire on 02-11-2023 RBC (Bld) [#/Vol] 5.69 10*6/uL 4.6-6.2 [facility] Blood hemoglobin measurement (mass/volume)Ordered By: Emilee Maguire on 02-11-2023 Hemoglobin (Bld) [Mass/Vol] 17.1 g/dL 13.0-16.5 [facility] Blood lymphocytes/100 leukoc ytesOrdered By: Emilee Maguire on 02-11-2023 Lymphocytes/100 WBC (Bld) 24.5 % 19-41 [facility] Blood monocytes/100 leukocyt esOrdered By: Emilee Maguire on 02-11-2023 Monocytes/100 WBC (Bld) 10.5 % 0-10 [facility] Blood platelet mean volumeOr dered By: Emilee Maguire on 02-11-2023 Platelet mean volume (Bld) [Entitic vol] 9.6 fL 6.2-12.0 [facility] Determination of erythrocyte mean corpuscular volume (MCV)Ordered By: Emilee Maguire on 02-11-2023 MCV (RBC) [Entitic vol] 88.2 fL 80-94 [facility] Hematocrit Auto (Bld) [Volum e fraction]Ordered By: Emilee Maguire on 02-11-2023 Hematocrit (Bld) [Volume fraction] 50.2 % 40-54 [facility] - Chemistry and C hemistry - challengeOrdered By: Emilee Maguire on 02-11-2023 ALP [Catalytic activity/Vol] 132 U/L 45-117 [facility] ALT [Catalytic activity/Vol] 34 U/L 16-61 [facility] CO2 [Moles/Vol] 27.0 mmol/L 21.0-32.0 [facility] Globulin (S) [Mass/Vol] 3.3 g/dL 2.2-4.2 [facility] Urea nitrogen/Creatinine [Mass ratio] 15.9 mg/mg 10-20 [facility] - Hematology and Cell countsOrdered By: Emilee Maguire on 02-11-2023 Erythrocyte distribution width (RBC) [Entitic vol] 43.1 fL 35.1-43.9 [facility] Erythrocyte distribution width (RBC) [Ratio] 13.3 % 11.6-14.6 [facility] Immature granulocytes/100 WBC (Bld) 0.200 % 0.0-0.9 [facility] Comment on above: IG% - Immature Granu locytes (promyelocytes, myelocytes and metamyelocytes) > 1% indicates that a LEFT SHIFT is Present. MCH (RBC) [Entitic mass] 30.1 pg 27.0-32.0 [facility] Nucleated RBC/100 WBC (Bld) [Ratio] 0 % 0-5 [facility] MCHC Auto (RBC) [Mass/Vol]Or dered By: Emilee Maguire on 02-11-2023 MCHC (RBC) [Mass/Vol] 34.1 g/dL 32-36 [facility] No Panel InformationOrdered By: Emilee Maguire on 02-11-2023 Estimated GFR (MDRD) Amer 89 mL/min >60 [facility] Comment on above: GFR Calc Estimated GFR (MDRD) Non-Af Amer 74 mL/min >60 [facility] Comment on above: Non- GFR Calc Platelets bldOrdered By: Avtar Maguire on 02-11-2023 Platelets (Bld) [#/Vol] 276 10*3/uL 150-450 [facility] Serum or plasma albumin hayden urement (mass/volume)Ordered By: Emilee Maguire on 02-11-2023 Albumin [Mass/Vol] 4.0 g/dL 3.2-5.0 [facility] Serum or plasma albumin/glob ulin mass ratioOrdered By: Emilee Maguire on 02-11-2023 Albumin/Globulin [Mass ratio] 1.2 {ratio} 0.9-2.4 [facility] Serum or plasma calcium hayden urement (mass/volume)Ordered By: Emilee Maguire on 02-11-2023 Calcium [Mass/Vol] 9.1 mg/dL 8.5-10.1 [facility] Serum or plasma cholesterol in HDL measurement (mass/volume)Ordered By: Emilee Maguire on 02-11-2023 Cholesterol in HDL [Mass/Vol] 39 mg/dL >40 [facility] Comment on above: The drugs N-Acetylcy steine and Metamizole may falsely depress this assay. Reference Range HDL <40 mg/dL Low HDL Cholesterol HDL >or= 60 mg/dL High HDL Cholesterol Serum or plasma cholesterol in VLDL measurement (mass/volume)Ordered By: Emilee Maguire on 02-11-2023 Cholesterol in VLDL [Mass/Vol] 13 mg/dL 5-40 [facility] Serum or plasma creatinine m easurement (mass/volume)Ordered By: Emilee Maguire on 02-11-2023 Creatinine [Mass/Vol] 1.07 mg/dL 0.70-1.30 [facility] Comment on above: The validity of the calculated GFR & GFRAA in patients over 70 years has not been determined. Clinical correlation is essential. Serum or plasma low density lipoprotein (LDL) cholesterol measurement (mass/volume)Ordered By: Emilee Maguire on 02-11-2023 Cholesterol in LDL [Mass/Vol] 78 mg/dL 0-130 [facility] Serum or plasma urea nitroge n measurement (mass/volume)Ordered By: Emilee Maguire on 02-11-2023 Urea nitrogen [Mass/Vol] 17 mg/dL 7-18 [facility] Thin prep Papanicolaou smear with manual screeningOrdered By: Emilee Maguire on 02-11-2023 Thin prep Papanicolaou smear with manual screening 16 U/L 15-37 [facility] Thin prep Papanicolaou smear with manual screening 6 5-15 [facility] Absolute lymphocyte countOrd ered By: Dr. Maguire on 10-05-2022 Lymphocytes Auto (Unsp spec) [#/Vol] 1.79 10*3/uL 0.83-4.51 [facility] Basophil percentageOrdered B y: Dr. Maguire on 10-05-2022 Basophils/100 WBC (Bld) 0.5 % 0-1 [facility] Eosinophils/100 WBC (Bld) 2.3 % 0-5 [facility] Neutrophils (Bld) [#/Vol] 3.7 10*3/uL 2.0-7.7 [facility] Neutrophils/100 WBC (Bld) 57.4 % 47-70 [facility] WBC (Bld) [#/Vol] 6.4 10*3/uL 4.4-11.0 [facility] Bilirubin [Mass/Vol] 0.90 mg/dL 0.20-1.00 [facility] Comment on above: For patients on eltr ombopag therapy, use of Dimension Martin TBIL is not recommended. Chloride [Moles/Vol] 108 mmol/L 98-107 [facility] Glucose [Mass/Vol] 100 mg/dL 74-106 [facility] Comment on above: Fasting Glucose resu lt from 100 to 125 mg/dL suggests IMPAIRED HOMEOSTASIS per A.D.A. criteria. Potassium [Moles/Vol] 3.9 mmol/L 3.5-5.1 [facility] Protein [Mass/Vol] 7.4 g/dL 6.4-8.2 [facility] Sodium [Moles/Vol] 142 mmol/L 136-145 [facility] Blood erythrocytes count (nu mber/volume)Ordered By: Dr. Maguire on 10-05-2022 RBC (Bld) [#/Vol] 5.92 10*6/uL 4.6-6.2 [facility] Blood hemoglobin measurement (mass/volume)Ordered By: Dr. Maguire on 10-05-2022 Hemoglobin (Bld) [Mass/Vol] 17.2 g/dL 13.0-16.5 [facility] Blood lymphocytes/100 leukoc ytesOrdered By: Dr. Maguire on 10-05-2022 Lymphocytes/100 WBC (Bld) 28.0 % 19-41 [facility] Blood monocytes/100 leukocyt esOrdered By: Dr. Maguire on 10-05-2022 Monocytes/100 WBC (Bld) 11.6 % 0-10 [facility] Blood platelet mean volumeOr dered By: Dr. Maguire on 10-05-2022 Platelet mean volume (Bld) [Entitic vol] 9.3 fL 6.2-12.0 [facility] Determination of erythrocyte mean corpuscular volume (MCV)Ordered By: Dr. Maguire on 10-05-2022 MCV (RBC) [Entitic vol] 86.8 fL 80-94 [facility] Hematocrit Auto (Bld) [Volum e fraction]Ordered By: Dr. Maguire on 10-05-2022 Hematocrit (Bld) [Volume fraction] 51.4 % 40-54 [facility] - Chemistry and C hemistry - challengeOrdered By: Dr. Maguire on 10-05-2022 ALP [Catalytic activity/Vol] 119 U/L 45-117 [facility] ALT [Catalytic activity/Vol] 52 U/L 16-61 [facility] CO2 [Moles/Vol] 25.0 mmol/L 21.0-32.0 [facility] Globulin (S) [Mass/Vol] 3.3 g/dL 2.2-4.2 [facility] Urea nitrogen/Creatinine [Mass ratio] 16.8 mg/mg 10-20 [facility] - Hematology and Cell countsOrdered By: Dr. Maguire on 10-05-2022 Erythrocyte distribution width (RBC) [Entitic vol] 43.7 fL 35.1-43.9 [facility] Erythrocyte distribution width (RBC) [Ratio] 13.6 % 11.6-14.6 [facility] Immature granulocytes/100 WBC (Bld) 0.200 % 0.0-0.9 [facility] Comment on above: IG% - Immature Granu locytes (promyelocytes, myelocytes and metamyelocytes) > 1% indicates that a LEFT SHIFT is Present. MCH (RBC) [Entitic mass] 29.1 pg 27.0-32.0 [facility] Nucleated RBC/100 WBC (Bld) [Ratio] 0 % 0-5 [facility] MCHC Auto (RBC) [Mass/Vol]Or dered By: Dr. Maguire on 10-05-2022 MCHC (RBC) [Mass/Vol] 33.5 g/dL 32-36 [facility] No Panel InformationOrdered By: Dr. Leon on 10-05-2022 Prostate Specific Antigen Total 6.49 ng/mL 0.0-4.0 [facility] Comment on above: This test was perfor med using the TPSA assay method for [employer] chemistry system. Values obtained with differentassay methods cannot be used interchangably.When changing PSA assays in the course of monitoring apatient, additional sequential testing should be carriedout to confirm baseline values. No Panel InformationOrdered By: Dr. Maguire on 10-05-2022 Estimated GFR (MDRD) Amer 84 mL/min >60 [facility] Comment on above: GFR Calc Estimated GFR (MDRD) Non-Af Amer 69 mL/min >60 [facility] Comment on above: Non- GFR Calc Platelets bldOrdered By: Dr. Maguire on 10-05-2022 Platelets (Bld) [#/Vol] 322 10*3/uL 150-450 [facility] Serum or plasma albumin hayden urement (mass/volume)Ordered By: Dr. Maguire on 10-05-2022 Albumin [Mass/Vol] 4.1 g/dL 3.2-5.0 [facility] Serum or plasma albumin/glob ulin mass ratioOrdered By: Dr. Maguire on 10-05-2022 Albumin/Globulin [Mass ratio] 1.2 {ratio} 0.9-2.4 [facility] Serum or plasma calcium hayden urement (mass/volume)Ordered By: Dr. Maguire on 10-05-2022 Calcium [Mass/Vol] 9.1 mg/dL 8.5-10.1 [facility] Serum or plasma creatinine m easurement (mass/volume)Ordered By: Dr. Maguire on 10-05-2022 Creatinine [Mass/Vol] 1.13 mg/dL 0.70-1.30 [facility] Comment on above: The validity of the calculated GFR & GFRAA in patients over 70 years has not been determined. Clinical correlation is essential. Serum or plasma urea nitroge n measurement (mass/volume)Ordered By: Dr. Maguire on 10-05-2022 Urea nitrogen [Mass/Vol] 19 mg/dL 7-18 [facility] Thin prep Papanicolaou smear with manual screeningOrdered By: Dr. Maguire on 10-05-2022 Thin prep Papanicolaou smear with manual screening 21 U/L 15-37 [facility] Thin prep Papanicolaou smear with manual screening 9 5-15 [facility] Basophil percentageon 2021 Chloride [Moles/Vol] 108 mmol/L 98-107 [facility] Work Phone: Glucose [Mass/Vol] 118 mg/dL 74-106 [facility] Work Phone: Comment on above: Fasting Glucose resu lt from 100 to 125 mg/dL suggests IMPAIRED HOMEOSTASIS per A.D.A. criteria. Potassium [Moles/Vol] 4.0 mmol/L 3.5-5.1 [facility] Work Phone: Sodium [Moles/Vol] 138 mmol/L 136-145 [facility] Work Phone: WBC (Bld) [#/Vol] 16.7 10*3/uL 4.4-11.0 [facility] Work Phone: Blood erythrocytes count (nu mber/volume)on 04-12-2022 RBC (Bld) [#/Vol] 4.85 10*6/uL 4.6-6.2 [facility] Work Phone: Blood hemoglobin measurement (mass/volume)on 04-12-2022 Hemoglobin (Bld) [Mass/Vol] 14.9 g/dL 13.0-16.5 [facility] Work Phone: Blood platelet mean volumeon 04-12-2022 Platelet mean volume (Bld) [Entitic vol] 9.2 fL 6.2-12.0 [facility] Work Phone: Determination of erythrocyte mean corpuscular volume (MCV)on 04-12-2022 MCV (RBC) [Entitic vol] 84.9 fL 80-94 [facility] Work Phone: Hematocrit Auto (Bld) [Volum e fraction]on 04-12-2022 Hematocrit (Bld) [Volume fraction] 41.2 % 40-54 [facility] Work Phone: Laboratory - Chemistry and C hemistry - challengeon 04-12-2022 CO2 [Moles/Vol] 25.0 mmol/L 21.0-32.0 [facility] Work Phone: Urea nitrogen/Creatinine [Mass ratio] 16.5 mg/mg 10-20 [facility] Work Phone: Laboratory - Hematology and Cell countson 04-12-2022 Erythrocyte distribution width (RBC) [Entitic vol] 39.9 fL 35.1-43.9 [facility] Work Phone: Erythrocyte distribution width (RBC) [Ratio] 13.0 % 11.6-14.6 [facility] Work Phone: MCH (RBC) [Entitic mass] 30.7 pg 27.0-32.0 [facility] Work Phone: MCHC Auto (RBC) [Mass/Vol]on 04-12-2022 MCHC (RBC) [Mass/Vol] 36.2 g/dL 32-36 [facility] Work Phone: No Panel Informationon 04-12 Estimated Creatinine Clearance Calc 76.67 ml/min [facility] Work Phone: Estimated GFR (MDRD) Amer 108 mL/min >60 [facility] Work Phone: Comment on above: GFR Calc Estimated GFR (MDRD) Non-Af Amer 89 mL/min >60 [facility] Work Phone: Comment on above: Non- GFR Calc Platelets bldon 04-12-2022 Platelets (Bld) [#/Vol] 216 10*3/uL 150-450 [facility] Work Phone: Serum or plasma calcium hayden urement (mass/volume)on 04-12-2022 Calcium [Mass/Vol] 8.3 mg/dL 8.5-10.1 [facility] Work Phone: Serum or plasma creatinine m easurement (mass/volume)on 04-12-2022 Creatinine [Mass/Vol] 0.91 mg/dL 0.70-1.30 [facility] Work Phone: Comment on above: The validity of the calculated GFR & GFRAA in patients over 70 years has not been determined. Clinical correlation is essential. Serum or plasma urea nitroge n measurement (mass/volume)on 04-12-2022 Urea nitrogen [Mass/Vol] 15 mg/dL 7-18 [facility] Work Phone: Thin prep Papanicolaou smear with manual screeningon 04-12-2022 Thin prep Papanicolaou smear with manual screening 5 5-15 [facility] Work Phone: Glucose Glucometer (dC) [M ass/Vol]on 04-11-2022 Glucose [Mass/Vol] 97 mg/dL 74-106 [facility] Work Phone: Comment on above: MANAGEMENT OF PATIEN T CARE PER NURSING PROTOCOL Laboratory - Chemistry and C hemistry - challengeon 04-04-2022 Magnesium [Mass/Vol] 2.2 mg/dL 1.6-2.6 [facility] Work Phone: Laboratory - Microbiology an d Antimicrobial susceptibilityon 03-27-2022 SARS-CoV-2 (COVID-19) RNA ROCKY+probe Ql (Unsp spec) Not detected Not Detect [facility] Work Phone: Comment on above: Normal Reference Ran ge: Not DetectedMethod:(RT-PCR) real-time reverse transcriptase PCRLuDNAtriX Instrument*The Food and Drug Administration (FDA) has issued an Emergency Use Authorization (EAU) for the [employer] SARS-CoV-2 Assay for the rapid detection of the virus that causes COVID-19. This test has been validated, but the [facility] independent review of this validation is pending.*Negative results do not preclude infection and should not be used as the sole basis for treatment or patient management. Optimum specimen types and timing for peak viral levels during infections caused by SARS-CoV-2 have not been determined. Collection of multiple specimens from the same patient may be necessary to detect the virus. The possibility of a false negative result should be considered if the patient has clinical presentation or has had recent exposure. Absolute lymphocyte counton 03-22-2022 Lymphocytes Auto (Unsp spec) [#/Vol] 1.74 10*3/uL 0.83-4.51 [facility] Work Phone: Basophil percentageon 2021 Basophils/100 WBC (Bld) 0.4 % 0-1 [facility] Work Phone: Bilirubin [Mass/Vol] 0.70 mg/dL 0.20-1.00 [facility] Work Phone: Comment on above: For patients on eltr ombopag therapy, use of Dimension Martin TBIL is not recommended. Chloride [Moles/Vol] 106 mmol/L 98-107 [facility] Work Phone: Cholesterol [Mass/Vol] 132 mg/dL <200 [facility] Work Phone: Comment on above: <200 mg/dL Desirable 200-240 mg/dL Borderline >240 mg/dL High Risk Eosinophils/100 WBC (Bld) 3.6 % 0-5 [facility] Work Phone: Glucose [Mass/Vol] 100 mg/dL 74-106 [facility] Work Phone: Comment on above: Fasting Glucose resu lt from 100 to 125 mg/dL suggests IMPAIRED HOMEOSTASIS per A.D.A. criteria. Neutrophils (Bld) [#/Vol] 3.9 10*3/uL 2.0-7.7 [facility] Work Phone: Neutrophils/100 WBC (Bld) 58.4 % 47-70 [facility] Work Phone: Potassium [Moles/Vol] 4.2 mmol/L 3.5-5.1 [facility] Work Phone: Protein [Mass/Vol] 7.3 g/dL 6.4-8.2 [facility] Work Phone: Sodium [Moles/Vol] 141 mmol/L 136-145 [facility] Work Phone: Triglyceride [Mass/Vol] 66 mg/dL <199 [facility] Work Phone: Comment on above: The drugs N-Acetylcy steine and Metamizole may falsely depress this assay.Serum Triglycerides Reference Interval Normal <150 mg/dL Borderline high 150 - 199 mg/dL High 200 - 499 mg/dL Very High > or = 500 mg/dL WBC (Bld) [#/Vol] 6.7 10*3/uL 4.4-11.0 [facility] Work Phone: Blood erythrocytes count (nu mber/volume)on 03-22-2022 RBC (Bld) [#/Vol] 5.61 10*6/uL 4.6-6.2 [facility] Work Phone: Blood hemoglobin measurement (mass/volume)on 03-22-2022 Hemoglobin (Bld) [Mass/Vol] 17.0 g/dL 13.0-16.5 [facility] Work Phone: Blood lymphocytes/100 leukoc yteson 03-22-2022 Lymphocytes/100 WBC (Bld) 26.0 % 19-41 [facility] Work Phone: Blood monocytes/100 leukocyt eson 03-22-2022 Monocytes/100 WBC (Bld) 11.3 % 0-10 [facility] Work Phone: Blood platelet mean volumeon 03-22-2022 Platelet mean volume (Bld) [Entitic vol] 9.8 fL 6.2-12.0 [facility] Work Phone: Determination of erythrocyte mean corpuscular volume (MCV)on 03-22-2022 MCV (RBC) [Entitic vol] 86.6 fL 80-94 [facility] Work Phone: Hematocrit Auto (Bld) [Volum e fraction]on 03-22-2022 Hematocrit (Bld) [Volume fraction] 48.6 % 40-54 [facility] Work Phone: Laboratory - Chemistry and C hemistry - challengeon 03-22-2022 ALP [Catalytic activity/Vol] 105 U/L 45-117 [facility] Work Phone: ALT [Catalytic activity/Vol] 41 U/L 16-61 [facility] Work Phone: CO2 [Moles/Vol] 28.0 mmol/L 21.0-32.0 [facility] Work Phone: Globulin (S) [Mass/Vol] 3.2 g/dL 2.2-4.2 [facility] Work Phone: Urea nitrogen/Creatinine [Mass ratio] 15.7 mg/mg 03-22 [facility] Work Phone: Laboratory - Hematology and Cell countson 03-22-2022 Erythrocyte distribution width (RBC) [Entitic vol] 41.4 fL 35.1-43.9 [facility] Work Phone: Erythrocyte distribution width (RBC) [Ratio] 13.2 % 11.6-14.6 [facility] Work Phone: Immature granulocytes/100 WBC (Bld) 0.300 % 0.0-0.9 [facility] Work Phone: Comment on above: IG% - Immature Granu locytes (promyelocytes, myelocytes and metamyelocytes) > 1% indicates that a LEFT SHIFT is Present. MCH (RBC) [Entitic mass] 30.3 pg 27.0-32.0 [facility] Work Phone: Nucleated RBC/100 WBC (Bld) [Ratio] 0 % 0-5 [facility] Work Phone: MCHC Auto (RBC) [Mass/Vol]on 03-22-2022 MCHC (RBC) [Mass/Vol] 35.0 g/dL 32-36 [facility] Work Phone: No Panel Informationon 03-22 Estimated GFR (MDRD) Amer 78 mL/min >60 [facility] Work Phone: Comment on above: GFR Calc Estimated GFR (MDRD) Non-Af Amer 64 mL/min >60 [facility] Work Phone: Comment on above: Non- GFR Calc Platelets bldon 03-22-2022 Platelets (Bld) [#/Vol] 279 10*3/uL 150-450 [facility] Work Phone: Serum or plasma albumin hayden urement (mass/volume)on 03-22-2022 Albumin [Mass/Vol] 4.1 g/dL 3.2-5.0 [facility] Work Phone: Serum or plasma albumin/glob ulin mass ratioon 03-22-2022 Albumin/Globulin [Mass ratio] 1.3 {ratio} 0.9-2.4 [facility] Work Phone: Serum or plasma calcium hayden urement (mass/volume)on 03-22-2022 Calcium [Mass/Vol] 9.4 mg/dL 8.5-10.1 [facility] Work Phone: Serum or plasma cholesterol in HDL measurement (mass/volume)on 03-22-2022 Cholesterol in HDL [Mass/Vol] 38 mg/dL >40 [facility] Work Phone: Comment on above: The drugs N-Acetylcy steine and Metamizole may falsely depress this assay. Reference Range HDL <40 mg/dL Low HDL Cholesterol HDL >or= 60 mg/dL High HDL Cholesterol Serum or plasma cholesterol in VLDL measurement (mass/volume)on 03-22-2022 Cholesterol in VLDL [Mass/Vol] 13 mg/dL 5-40 [facility] Work Phone: Serum or plasma creatinine m easurement (mass/volume)on 03-22-2022 Creatinine [Mass/Vol] 1.21 mg/dL 0.70-1.30 [facility] Work Phone: Comment on above: The validity of the calculated GFR & GFRAA in patients over 70 years has not been determined. Clinical correlation is essential. Serum or plasma low density lipoprotein (LDL) cholesterol measurement (mass/volume)on 03-22-2022 Cholesterol in LDL [Mass/Vol] 81 mg/dL 0-130 [facility] Work Phone: Serum or plasma urea nitroge n measurement (mass/volume)on 03-22-2022 Urea nitrogen [Mass/Vol] 19 mg/dL 7-18 [facility] Work Phone: Thin prep Papanicolaou smear with manual screeningon 03-22-2022 Thin prep Papanicolaou smear with manual screening 16 U/L 15-37 [facility] Work Phone: Thin prep Papanicolaou smear with manual screening 7 5-15 [facility] Work Phone: CT KNEE W/O CONTRAST RIGHTon 04-21-2021 CT KNEE W/O CONTRAST RIGHT ORIGINAL EXAMINATION: CT OF THE RIGHT KNEE WITHOUT [id number]/19/2021 10:05 am TECHNIQUE: CT of the right knee was performed without the administration of intravenous contrast. Multiplanar reformatted images are provided for review. Dose modulation, iterative reconstruction, and/or weight based adjustment of the mA/kV was utilized to reduce the radiation dose to as low as reasonably achievable. COMPARISON: None HISTORY: ORDERING SYSTEM PROVIDED HISTORY: Reason for Exam: VARUS DEFORMITY NOT ALSO CLASSIFIED RIGHT KNEE Chronic pain, no known injury FINDINGS: No acute fracture, dislocation or aggressive osseous lesion of the knee joint. There is a small area of heterotopic ossification posterior to the fibular neck. Mild marginal osteophyte formation and joint space narrowing of the medial and lateral femorotibial compartments, most prominent within medial compartment. Marginal osteophyte formation and narrowing of the lateral aspect of the patellofemoral compartment. Total right hip arthroplasty without evidence of hardware complication. No acute fracture or aggressive osseous lesion identified within the visualized hip or ankle joint. There is a 1.2 cm likely fibro-osseous lesion of the posterior right iliac bone. No aggressive features are demonstrated. Incidental 1 cm intracapsular body within the popliteus tendon sheath. Ligaments and tendons are not well evaluated on this examination. No significant muscle atrophy. No gross abnormality identified within the visualized lower abdomen/pelvis. IMPRESSION: 1. No acute fracture or aggressive osseous lesion. Incidental 1.2 cm likely fibro osseous lesion noted within the posterior right iliac bone without aggressive features. 2. Mild tricompartmental degenerative changes of the right knee. 1.0 cm intracapsular body within the popliteus tendon sheath. I have personally reviewed the images of this examination and agree with the resident's findings and interpretation. Interpreted by: Chuck Saleh DO Preliminary Report By: Dania Oconnell Electronically signed By Chuck Saleh DO Dictated Date: 04/21/2021 11:00:22 AM Prelim Date: 04/21/2021 11:20:32 AM Sign Date: 04/21/2021 12:11:20 PM Ordering Provider: [facility] No Panel Information Nasal Screen MRSA/MSSA [facility] Work Phone: Vital Signs Date Time Vital Sign Value Performing Clinician Faci lissa 12-07-2024 13:10-0400 Body height 170.[address] Emilee Maguire MD Work Phone: [facility] 12-07-2024 13:10-0400 Body mass index (BMI) [Ratio] 29.2 kg/m2 Dr. Emilee Maguire MD Work Phone: [facility] 12-07-2024 13:10-0400 Body weight 84.[address] Emilee Maguire MD Work Phone: [facility] 12-07-2024 13:10-0400 Diastolic blood pressure 72 mm[Hg] Dr. Emilee Maguire MD Work Phone: [facility] 12-07-2024 13:10-0400 Heart rate 67 /min Dr. Emilee Maguire MD Work Phone: [facility] 12-07-2024 13:10-0400 Respiratory rate 18 /min Dr. Emilee Maguire MD Work Phone: [facility] 12-07-2024 13:10-0400 SaO2% (BldA) [Mass fraction] 95 % Dr. Emilee Maguire MD Work Phone: [facility] 12-07-2024 13:10-0400 Systolic blood pressure 129 mm[Hg] Dr. Emilee Maguire MD Work Phone: [facility] 10-22-2024 14:11-0400 Body mass index (BMI) [Ratio] 29.2 kg/m2 Dr. Emilee Maguire MD Work Phone: [facility] 10-22-2024 14:11-0400 Body temperature 96.7 [degF] Dr. Emilee Maguire MD Work Phone: [facility] 10-22-2024 14:11-0400 Body weight 84.[address] Emilee Maguire MD Work Phone: [facility] 10-22-2024 14:11-0400 Diastolic blood pressure 58 mm[Hg] Dr. Emilee Maguire MD Work Phone: [facility] 10-22-2024 14:11-0400 Heart rate 61 /min Dr. Emilee Maguire MD Work Phone: [facility] 10-22-2024 14:11-0400 Respiratory rate 16 /min Dr. Emilee Maguire MD Work Phone: [facility] 10-22-2024 14:11-0400 SaO2% (BldA) [Mass fraction] 97 % Dr. Eimlee Maguire MD Work Phone: [facility] 10-22-2024 14:11-0400 Systolic blood pressure 108 mm[Hg] Dr. Emilee Maguire MD Work Phone: [facility] 09-02-2024 10:25-0400 Body temperature 97.5 [degF] Dr. Emilee Maguire MD Work Phone: [facility] 09-02-2024 10:25-0400 Diastolic blood pressure 80 mm[Hg] Dr. Emilee Maguire MD Work Phone: [facility] 09-02-2024 10:25-0400 Heart rate 66 /min Dr. Emilee Maguire MD Work Phone: [facility] 09-02-2024 10:25-0400 SaO2% (BldA) [Mass fraction] 99 % Dr. Emilee Maguire MD Work Phone: [facility] 09-02-2024 10:25-0400 Systolic blood pressure 124 mm[Hg] Dr. Emilee Maguire MD Work Phone: [facility] 07-29-2024 10:32-0500 Body height 170.[address] Emilee Maguire MD Work Phone: [facility] 07-29-2024 10:32-0500 Body mass index (BMI) [Ratio] 29.1 kg/m2 Dr. Emilee Maguire MD Work Phone: [facility] 07-29-2024 10:32-0500 Body temperature 98.4 [degF] Dr. Emilee Maguire MD Work Phone: [facility] 07-29-2024 10:32-0500 Body weight 84.[address] Emilee Maguire MD Work Phone: [facility] 07-29-2024 10:32-0500 Diastolic blood pressure 70 mm[Hg] Dr. Emilee Maguire MD Work Phone: [facility] 07-29-2024 10:32-0500 Heart rate 79 /min Dr. Emilee Maguire MD Work Phone: [facility] 07-29-2024 10:32-0500 Respiratory rate 17 /min Dr. Emilee Maguire MD Work Phone: [facility] 07-29-2024 10:32-0500 SaO2% (BldA) [Mass fraction] 98 % Dr. Emilee Maguire MD Work Phone: [facility] 07-29-2024 10:32-0500 Systolic blood pressure 138 mm[Hg] Dr. Emilee Maguire MD Work Phone: [facility] 05-05-2024 13:15-0500 Body temperature 97.7 [degF] Dr. Emilee Maguire MD Work Phone: [facility] 05-05-2024 13:15-0500 Diastolic blood pressure 72 mm[Hg] Dr. Emilee Maguire MD Work Phone: [facility] 05-05-2024 13:15-0500 Heart rate 82 /min Dr. Emilee Maguire MD Work Phone: [facility] 05-05-2024 13:15-0500 Respiratory rate 12 /min Dr. Emilee Maguire MD Work Phone: [facility] 05-05-2024 13:15-0500 SaO2% (BldA) [Mass fraction] 97 % Dr. Emilee Maguire MD Work Phone: [facility] 05-05-2024 13:15-0500 Systolic blood pressure 120 mm[Hg] Dr. Emilee Maguire MD Work Phone: [facility] 06-01-2023 20:09-0500 Body height 170.[address] Emilee Maguire Work Phone: [facility] 06-01-2023 20:09-0500 Body mass index (BMI) [Ratio] 29.3 kg/m2 Dr. Emilee Maguire Work Phone: [facility] 06-01-2023 20:09-0500 Body temperature 97.8 [degF] Dr. Emilee Maguire Work Phone: [facility] 06-01-2023 20:09-0500 Body weight 84.[address] Emilee Maguire Work Phone: [facility] 06-01-2023 20:09-0500 Diastolic blood pressure 79 mm[Hg] Dr. Emilee Maguire Work Phone: [facility] 06-01-2023 20:09-0500 Heart rate 70 /min Dr. Emilee Maguire Work Phone: [facility] 06-01-2023 20:09-0500 Respiratory rate 16 /min Dr. Emilee Maguire Work Phone: [facility] 06-01-2023 20:09-0500 SaO2% (BldA) [Mass fraction] 98 % Dr. Emilee Maguire Work Phone: [facility] 06-01-2023 20:09-0500 Systolic blood pressure 151 mm[Hg] Dr. Emilee Maguire Work Phone: [facility] 05-31-2023 08:44-0500 Body mass index (BMI) [Ratio] 29.6 kg/m2 Dr. Emilee Maguire Work Phone: [facility] 05-31-2023 08:44-0500 Body temperature 97.6 [degF] Dr. Emilee Maguire Work Phone: [facility] 05-31-2023 08:44-0500 Body weight 85.[address] Emilee Maguire Work Phone: [facility] 05-31-2023 08:44-0500 Diastolic blood pressure 70 mm[Hg] Dr. Emilee Maguire Work Phone: [facility] 05-31-2023 08:44-0500 Heart rate 70 /min Dr. Emilee Maguire Work Phone: [facility] 05-31-2023 08:44-0500 Respiratory rate 16 /min Dr. Emilee Maguire Work Phone: [facility] 05-31-2023 08:44-0500 SaO2% (BldA) [Mass fraction] 98 % Dr. Emilee Maguire Work Phone: [facility] 05-31-2023 08:44-0500 Systolic blood pressure 128 mm[Hg] Dr. Emilee Maguire Work Phone: [facility] 05-27-2023 19:54-0500 Body height 170.[address] Emilee Maguire Work Phone: [facility] 05-27-2023 19:54-0500 Body mass index (BMI) [Ratio] 29.9 kg/m2 Dr. Emilee Maguire Work Phone: [facility] 05-27-2023 19:54-0500 Body temperature 97.6 [degF] Dr. Emilee Maguire Work Phone: [facility] 05-27-2023 19:54-0500 Body weight 86.[address] Emilee Maguire Work Phone: [facility] 05-27-2023 19:54-0500 Diastolic blood pressure 76 mm[Hg] Dr. Emilee Maguire Work Phone: [facility] 05-27-2023 19:54-0500 Heart rate 66 /min Dr. Emilee Maguire Work Phone: [facility] 05-27-2023 19:54-0500 Respiratory rate 14 /min Dr. Emilee Maguire Work Phone: [facility] 05-27-2023 19:54-0500 SaO2% (BldA) [Mass fraction] 97 % Dr. Emilee Maguire Work Phone: [facility] 05-27-2023 19:54-0500 Systolic blood pressure 147 mm[Hg] Dr. Emilee Maguire Work Phone: [facility] 04-30-2023 07:02-0500 Body temperature 98.6 [degF] Dr. Emilee Maguire Work Phone: [facility] 04-30-2023 07:02-0500 Diastolic blood pressure 72 mm[Hg] Dr. Emilee Maguire Work Phone: [facility] 04-30-2023 07:02-0500 Heart rate 52 /min Dr. Emilee Maguire Work Phone: [facility] 04-30-2023 07:02-0500 Respiratory rate 16 /min Dr. Emilee Maguire Work Phone: [facility] 04-30-2023 07:02-0500 SaO2% (BldA) [Mass fraction] 93 % Dr. Emilee Maguire Work Phone: [facility] 04-30-2023 07:02-0500 Systolic blood pressure 112 mm[Hg] Dr. Emilee Maguire Work Phone: [facility] 04-30-2023 05:54-0500 Body height 170.[address] Emilee Maguire Work Phone: [facility] 04-30-2023 05:54-0500 Body mass index (BMI) [Ratio] 29 kg/m2 Dr. Emilee Maguire Work Phone: [facility] 04-30-2023 05:54-0500 Body weight 84.[address] Emilee Maguire Work Phone: [facility] 03-11-2023 14:44-0400 Body mass index (BMI) [Ratio] 29.1 kg/m2 Dr. Emilee Maguire Work Phone: [facility] 03-11-2023 14:44-0400 Body weight 84.[address] Emilee Maguire Work Phone: [facility] 03-11-2023 14:44-0400 Diastolic blood pressure 71 mm[Hg] Dr. Emilee Maguire Work Phone: [facility] 03-11-2023 14:44-0400 Respiratory rate 18 /min Dr. Emilee Maguire Work Phone: [facility] 03-11-2023 14:44-0400 Systolic blood pressure 130 mm[Hg] Dr. Emilee Maguire Work Phone: [facility] 02-08-2023 09:45-0400 Body mass index (BMI) [Ratio] 29.1 kg/m2 Dr. Emilee Maguire Work Phone: [facility] 02-08-2023 09:45-0400 Body temperature 95.9 [degF] Dr. Emilee Maguire Work Phone: [facility] 02-08-2023 09:45-0400 Body weight 84.[address] Emilee Maguire Work Phone: [facility] 02-08-2023 09:45-0400 Diastolic blood pressure 76 mm[Hg] Dr. Emilee Maguire Work Phone: [facility] 02-08-2023 09:45-0400 Heart rate 63 /min Dr. Emilee Maguire Work Phone: [facility] 02-08-2023 09:45-0400 Respiratory rate 18 /min Dr. Emilee Mgauire Work Phone: [facility] 02-08-2023 09:45-0400 SaO2% (BldA) [Mass fraction] 99 % Dr. Emilee Maguire Work Phone: [facility] 02-08-2023 09:45-0400 Systolic blood pressure 136 mm[Hg] Dr. Emilee Maguire Work Phone: [facility] 02-05-2023 05:45-0400 Body mass index (BMI) [Ratio] 28.5 kg/m2 Dr. Emilee Maguire Work Phone: [facility] 02-05-2023 05:45-0400 Body temperature 97.2 [degF] Dr. Emilee Maguire Work Phone: [facility] 02-05-2023 05:45-0400 Body weight 82.[address] Emilee Maguire Work Phone: [facility] 02-05-2023 05:45-0400 Diastolic blood pressure 81 mm[Hg] Dr. Emilee Maguire Work Phone: [facility] 02-05-2023 05:45-0400 Heart rate 76 /min Dr. Emilee Maguire Work Phone: [facility] 02-05-2023 05:45-0400 Respiratory rate 18 /min Dr. Emilee Maguire Work Phone: [facility] 02-05-2023 05:45-0400 SaO2% (BldA) [Mass fraction] 97 % Dr. Emilee Maguire Work Phone: [facility] 02-05-2023 05:45-0400 Systolic blood pressure 141 mm[Hg] Dr. Emilee Maguire Work Phone: [facility] 10-08-2022 09:50-0400 Body height 170.[address] Emilee Maguire Work Phone: [facility] 10-08-2022 09:50-0400 Body mass index (BMI) [Ratio] 29.4 kg/m2 Dr. Emilee Maguire Work Phone: [facility] 10-08-2022 09:50-0400 Body temperature 97.7 [degF] Dr. Emilee Maguire Work Phone: [facility] 10-08-2022 09:50-0400 Body weight 85.[address] Emilee Maguire Work Phone: [facility] 10-08-2022 09:50-0400 Diastolic blood pressure 68 mm[Hg] Dr. Emilee Maguire Work Phone: [facility] 10-08-2022 09:50-0400 Heart rate 64 /min Dr. Emilee Maguire Work Phone: [facility] 10-08-2022 09:50-0400 Respiratory rate 14 /min Dr. Emilee Maguire Work Phone: [facility] 10-08-2022 09:50-0400 SaO2% (BldA) [Mass fraction] 97 % Dr. Emilee Maguire Work Phone: [facility] 10-08-2022 09:50-0400 Systolic blood pressure 124 mm[Hg] Dr. Emilee Maguire Work Phone: [facility] 09-14-2022 10:33-0400 Body temperature 98.4 [degF] Dr. Emilee Maguire Work Phone: [facility] 09-14-2022 10:33-0400 Diastolic blood pressure 72 mm[Hg] Dr. Emilee Maguire Work Phone: [facility] 09-14-2022 10:33-0400 Heart rate 73 /min Dr. Emilee Maguire Work Phone: [facility] 09-14-2022 10:33-0400 Respiratory rate 16 /min Dr. Emilee Maguire Work Phone: [facility] 09-14-2022 10:33-0400 SaO2% (BldA) [Mass fraction] 98 % Dr. Emilee Maguire Work Phone: [facility] 09-14-2022 10:33-0400 Systolic blood pressure 132 mm[Hg] Dr. Emilee Maguire Work Phone: [facility] 04-12-2022 11:00-0500 Body temperature 98.3 [degF] Dr. Emilee Maguire Work Phone: [facility] Work Phone: 04-12-2022 11:00-0500 Diastolic blood pressure 61 mm[Hg] Dr. Emilee Maguire Work Phone: [facility] Work Phone: 04-12-2022 11:00-0500 Heart rate 72 /min Dr. Emilee Maguire Work Phone: [facility] Work Phone: 04-12-2022 11:00-0500 Inhaled oxygen flow rate 4 L/min Dr. Emilee Maguire Work Phone: [facility] Work Phone: 04-12-2022 11:00-0500 Respiratory rate 18 /min Dr. Emilee Maguire Work Phone: [facility] Work Phone: 04-12-2022 11:00-0500 SaO2% (BldA) [Mass fraction] 95 % Dr. Emilee Maguire Work Phone: [facility] Work Phone: 04-12-2022 11:00-0500 Systolic blood pressure 134 mm[Hg] Dr. Emilee Maguire Work Phone: [facility] Work Phone: 04-11-2022 11:33-0500 Body height 170.[address] Emilee Maguire Work Phone: [facility] Work Phone: 04-11-2022 11:33-0500 Body mass index (BMI) [Ratio] 28.6 kg/m2 Dr. Emilee Maguire Work Phone: [facility] Work Phone: 04-11-2022 11:33-0500 Body weight [address] Emilee Maguire Work Phone: [facility] Work Phone: 03-27-2022 09:32-0400 Body height 170.[address] Emilee Maguire Work Phone: [facility] Work Phone: 03-27-2022 09:32-0400 Body mass index (BMI) [Ratio] 29 kg/m2 Dr. Emilee Maguire Work Phone: [facility] Work Phone: 03-27-2022 09:32-0400 Body temperature 98 [degF] Dr. Emilee Maguire Work Phone: [facility] Work Phone: 03-27-2022 09:32-0400 Body weight 83.[address] Emilee Maguire Work Phone: [facility] Work Phone: 03-27-2022 09:32-0400 Diastolic blood pressure 82 mm[Hg] Dr. Emilee Maguire Work Phone: [facility] Work Phone: 03-27-2022 09:32-0400 Heart rate 66 /min Dr. Emilee Maguire Work Phone: [facility] Work Phone: 03-27-2022 09:32-0400 Respiratory rate 16 /min Dr. Emilee Maguire Work Phone: [facility] Work Phone: 03-27-2022 09:32-0400 SaO2% (BldA) [Mass fraction] 98 % Dr. Emilee Maguire Work Phone: [facility] Work Phone: 03-27-2022 09:32-0400 Systolic blood pressure 128 mm[Hg] Dr. Emilee Maguire Work Phone: [facility] Work Phone: 03-23-2022 09:20-0400 Body temperature 97.1 [degF] Dr. Emilee Maguire Work Phone: [facility] Work Phone: 03-23-2022 09:20-0400 Body weight 82.[address] Emilee Maguire Work Phone: [facility] Work Phone: 03-23-2022 09:20-0400 Diastolic blood pressure 68 mm[Hg] Dr. Emilee Maguire Work Phone: [facility] Work Phone: 03-23-2022 09:20-0400 Heart rate 16 /min Dr. Emilee Maguire Work Phone: [facility] Work Phone: 03-23-2022 09:20-0400 Respiratory rate 69 /min Dr. Emilee Maguire Work Phone: [facility] Work Phone: 03-23-2022 09:20-0400 SaO2% (BldA) [Mass fraction] 97 % Dr. Emilee Maguire Work Phone: [facility] Work Phone: 03-23-2022 09:20-0400 Systolic blood pressure 122 mm[Hg] Dr. Emilee Maguire Work Phone: [facility] Work Phone: 02-22-2022 08:41-0400 Body mass index (BMI) [Ratio] 29.1 kg/m2 Dr. Emilee Maguire Work Phone: [facility] Work Phone: 02-22-2022 08:41-0400 Body temperature 98.4 [degF] Dr. Emilee Maguire Work Phone: [facility] Work Phone: 02-22-2022 08:41-0400 Body weight 84.[address] Emilee Maguire Work Phone: [facility] Work Phone: 02-22-2022 08:41-0400 Diastolic blood pressure 73 mm[Hg] Dr. Emilee Maguire Work Phone: [facility] Work Phone: 02-22-2022 08:41-0400 Heart rate 60 /min Dr. Emilee Maguire Work Phone: [facility] Work Phone: 02-22-2022 08:41-0400 Respiratory rate 16 /min Dr. Emilee Maguire Work Phone: [facility] Work Phone: 02-22-2022 08:41-0400 SaO2% (BldA) [Mass fraction] 97 % Dr. Emilee Maguire Work Phone: [facility] Work Phone: 02-22-2022 08:41-0400 Systolic blood pressure 119 mm[Hg] Dr. Emilee Maguire Work Phone: [facility] Work Phone: 12-08-2021 09:25-0400 Body mass index (BMI) [Ratio] 29 kg/m2 Dr. Emilee Maguire Work Phone: [facility] Work Phone: 12-08-2021 09:25-0400 Body temperature 96.9 [degF] Dr. Emilee Maguire Work Phone: [facility] Work Phone: 12-08-2021 09:25-0400 Body weight 83.[address] Emilee Maguire Work Phone: [facility] Work Phone: 12-08-2021 09:25-0400 Diastolic blood pressure 74 mm[Hg] Dr. Emilee Maguire Work Phone: [facility] Work Phone: 12-08-2021 09:25-0400 Heart rate 66 /min Dr. Emilee Maguire Work Phone: [facility] Work Phone: 12-08-2021 09:25-0400 Respiratory rate 16 /min Dr. Emilee Maguire Work Phone: [facility] Work Phone: 12-08-2021 09:25-0400 SaO2% (BldA) [Mass fraction] 98 % Dr. Emilee Maguire Work Phone: [facility] Work Phone: 12-08-2021 09:25-0400 Systolic blood pressure 130 mm[Hg] Dr. Emilee Maguire Work Phone: [facility] Work Phone: Encounters Encounter Date Encounter Type Care Provider Facility Start: 12-07-2024 End: 12-07-[address] Marcus Burrell MD -[facility] Work Phone: Start: 12-07-2024 End: 12-07-[address] Emilee Maguire MD Work Phone: -[facility] Start: 10-22-2024 End: 10-22-[address] Emilee Maguire MD -[facility] Work Phone: Start: 10-22-2024 End: 10-22-2024 ambulatory Efsoleongbe Melvine Facility:[facility] Start: 09-02-2024 End: 09-02-2024 Patient encounter procedure Lamar Taylor [facility] -[facility] Work Phone: Start: 09-02-2024 End: 09-02-2024 ambulatory Lamar Taylor Facility:[facility] Start: 08-21-[address] Juarez Maguire MD -[facility] Work Phone: Start: 08-21-2024 ambulatory Efbrittanybe Melvine Facili ty:[facility] Start: 07-29-2024 End: 07-29-[address] Emilee Maguire MD Work Phone: [facility] Work Phone: Start: 07-29-2024 End: 07-29-[address] Emilee Maguire MD -[facility] Work Phone: Start: 07-29-2024 End: 07-29-2024 ambulatory Emilee Charlese Facility:[facility] Start: 07-29-2024 End: 07-29-[address] [facility] Start: 05-05-2024 End: 05-05-2024 Patient encounter procedure Lamar Taylor [facility] -[facility] Work Phone: Start: 05-05-2024 End: 05-05-2024 ambulatory Lamar Taylor Facility:[facility] Start: 05-05-2024 End: 05-05-2024 ambulatory Lamar Taylor Facility:[facility] Start: 03-18-[address] Emilee Maguire MD Work Phone: [facility] Start: 03-18-2024 End: 03-18-2024 [facility] Start: 03-18-2024 End: 03-18-2024 [facility] Start: 02-19-2024 End: 02-19-2024 ambulatory Emilee Maguire Facility:[facility] Start: 02-11-2024 End: 02-11-2024 ambulatory Kiesha Ronquillo [employer] Facility:[facility] Start: 01-28-2024 End: 01-28-2024 [facility] Start: 01-22-2024 End: 01-22-2024 ambulatory Tom Leon Facility:[facility] Start: 01-01-2024 End: 01-01-[facility] Start: 01-01-2024 End: 01-01-2024 ambulatory [facility] Facility:[facility] Start: 06-01-2023 End: 06-01-2023 Emergency department patient visit Dr. Emilee Maguire Work Phone: [facility] Work Phone: Start: 05-31-2023 End: 05-31-[address] Emilee Maguire Work Phone: [facility] Work Phone: Start: 05-27-2023 End: 05-27-2023 Emergency department patient visit Dr. Emilee Maguire Work Phone: [facility] Work Phone: Start: 04-30-2023 Non-patient / Non-visit Dr. Noemi Maguire Work Phone: [facility] Start: 04-30-2023 End: 04-30-2023 Admission to same day surgery center Dr. Emilee Maguire Work Phone: [facility]-Endoscopy Work Phone: Start: 04-30-2023 End: 04-30-[address] Emilee Maguire Work Phone: [facility] Work Phone: Start: 04-08-2023 End: 04-08-[address] [facility] Start: 03-11-2023 End: 03-11-[address] Emilee Maguire Work Phone: [facility] Work Phone: Start: 02-25-2023 End: 02-25-[address] Emilee Maguire Work Phone: [facility]-Radiology, [facility] Work Phone: Start: 02-11-2023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 orientation impaired, confused or lethargic Motor Exam: strength 5/5 throughout Psych mental status grossly normal Appearance: Negative for unkempt Attitude: No agitated Mood & Affect: Negative for depressed, anxious or tearful Thought Process: normal thought process Thought Content: normal thought content Attention / Concentration: Negative for other Skin Skin Narrative: Second-degree burn top of left foot. General Skin Exam: Negative for jaundice or pallor Lesions: no lesions Rashes: No no rashes MDM MDM MDM Narrative Medical decision making narrative: Healthy 67-year-old male with a secondary burn on the top of his left foot. Silver Silvadene cream and dressing. Motrin and Tylenol for pain. Follow-up with any signs of infection.. Return if worse. History & Record Review Discussion w/independent historian: Patient and Family Additional record(s) reviewed:: Prior inpatient record, Prior outpatient record and Prior ED visit Discharge Plan Triage Chief Complaint: Burn ED Provider: Kris Snyder Dx/Rx/DC Orders Clinical Impression: Second degree burn Instructions: ED First- and Second-Degree [place] ... Prescriptions: No Action rosuvastatin 5 mg tablet 5 mg PO QHS Qty: 90 3RF famotidine 20 mg tablet 20 mg PO BID Qty: 180 3RF amlodipine 10 mg tablet 10 mg PO QHS Qty: 90 3RF hydroxyzine HCl 25 mg tablet 25 mg PO BID PRN (Reason: anxiety) Qty: 180 3RF omeprazole 40 mg capsule,delayed release(DR/EC) 40 mg PO DAILY Qty: 30 3RF Primary Care Provider: Emilee Maguire Referrals: Emilee Maguire MD [Primary Care Provider] - As Needed Activity Restrictions/Additional Instructions: Motrin and Tylenol or Naprosyn and Tylenol for pain. Cool compress and elevate. Silver Silvadene cream applied in the morning and evening. Follow-up with your doctor return if you develop a fever or looks infected whichwould be red and hot. Do not intentionally tear off the skin or open up the blisters. Disposition Disposition: Home, Self Care What to do if you have Problems For any increased pain, shortness of breath, bleeding, nausea or vomiting, chestpain, or any unexpected problems, contact your Primary Care Provider. Call [facility] ([phone]) or report to the closest Emergency Room. Call 911 if necessary. 05/27/232047 <Electronically signed by Kris Snyder MD> Suryaer Signature (if applicable): CC: Dr. Emilee Maguire MD ~ Signed [facility] Work Phone: [phone]) 905-282011-28-2023 Procedure [facility] 04-30-2023 Procedure [facility]08-24-2021 NoteHNO ID: [id number] Author: Nataly Li Service: ? Author Type: [...] Nataly Stack Pss January 24, 2021 4:01 [facility]08-24-2021 NotePatient Outreach (MIQ) KATARINA BALDWIN ([id number]) 1955 M Date Time Provider Department 01/24/21 NATAYL STACK (PSS) MIQ During your visit today, [...] CHRONIC DISEASE VISIT due on 06/23/2019 Nataly Seda Pss January 24, 2021 4:01 PM Allergies [...] 07/10/2013 Encounter Status:Closed by [facility]AL[facility]ORENZ [facility] Evaluation note* Diagnosis Onset Date Resolution Status Generalized anxiety disorder chronic Hyperlipidemia chronic Hypertension chronic COVID-19 vaccine series completed acute Obstructive sleep apnea 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 Work Phone: Evaluation note* Diagnosis Onset Date Resolution Status Strain of fascia of lower back acute Generalized anxiety disorder chronic Hyperlipidemia chronic Hypertension chronic 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 Work Phone: History and physical note Author Humble Nascimento [facility] April 30, 2023 5:42am Note Date/Time April 30, 2023 5:42am [facility] Medical Records Department [address] [place] [address] History & Physical Exam 04/30/23 0541 MR#: [id number] Acct: [id number] Name: KATARINA BALDWIN Rep #:[id number] : 1955 67 From: Humble Nascimento MD PCP: Dr. Emilee Maguire MD Status:R [facility] Location: [place] [address]- History and Physical Date of Admission: 04/30/23 Visit Reasons: Dysphagia Chief Complaint: dysphagia Dictating Transcribing Machine Servicer Required: No Is patient in pain?: No Allergies atorvastatin calcium [From Lipitor] Adverse Reaction (Verified 03/11/23 14:44) Other Medications amlodipine 10 mg tablet 10 mg PO QHS #90 tabs 10/08/22 [Rx Confirmed 03/11/23] famotidine 20 mg tablet 20 mg PO BID #180 tabs 10/08/22 [Rx Confirmed 03/11/23] rosuvastatin 5 mg tablet 5 mg PO QHS #90 tabs 10/08/22 [Rx Confirmed 03/11/23] hydroxyzine HCl 25 mg tablet 25 mg PO BID PRN anxiety #180 tabs 02/28/23 [Rx Confirmed 03/11/23] PFSH Medical History Alcohol use Arthritis BPH (benign prostatic hyperplasia) Cardiac dysrhythmia Cor athrscl-uns vessel COVID-19 vaccine series completed CPAP (continuous positive airway pressure) dependence Diastasis recti Elevated BP without diagnosis of hypertension Flu vaccine need Gastric reflux Gastroenteritis Generalized anxiety disorder GERD (gastroesophageal reflux disease) High cholesterol High cholesterol History of edema History of fracture of clavicle Hypertension Localized swelling of abdominal wall Low testosterone Non-smoker Obstructive sleep apnea Preoperative evaluation to rule out surgical contraindication Prostate disease Right knee meniscal tear Right knee pain Right shoulder pain Swallowing difficulty Ventral incisional hernia without obstruction or gangrene Wears glasses Surgical History History of bilateral hip replacements History of esophagogastroduodenoscopy (EGD) History of removal of skin mole History of tonsillectomy and adenoidectomy History of total replacement of both hip joints Hx of colonoscopy Hx of repair of right rotator cuff S/P right rotator cuff repair S/P ventral herniorrhaphy (~04/07/18) Status post total right knee replacement Family History Father Heart disease Hypertension High cholesterol Bowel disease Depression Myocardial infarction, Onset Age: 62Mother High cholesterol ArthritisGrandmother Cancer Social History Smoking Status: Never smoker alcohol intake: current alcohol intake frequency: holidays/special occasions only substance use type: does not use what type of physical activity do you participate in: walking, weight training and other frequency: 3-4 times per week HPI HPI HPI: 67-year-old gentleman is being referred by Dr. Emilee Maguire for surgical consultation regarding esophageal dysphagia and a written copy of my surgical consult recommendations will return to her. I have previously assisted him witha colonoscopy on July 05, 2020. This was via open access for screening. Multiple diverticula were seen. I biopsied a prominent area of the proximal sigmoid colon suggesting ulceration with acute chronic inflammation and granulation tissue. No evidence of malignancy. 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 H. pylori was negative. Because of the unusualnature of the distal esophageal findings recommendations were follow-up at 1 year. The patient was feeling better so we did not pursue that. H. pylori was negative. He states that after that procedure he is swallowing was improved for several years but within the last year or 2 he has had recurrent problems where food temporarily gets stuck. Mostly bread. He is able to wash it down with water. He is on famotidine 20 mg orally twice daily. He has had a recent cookie swallow examination performed on February 25, 2023. That showed oral phase wasnormal, pharyngeal phase showed some partial obstruction to flow of the pharyngeal esophageal segment. There was evidence of some distal esophageal reflux. But grossly the study was felt to be normal. ROS General General: No weight change, appetite, fatigue, colon cancer, breast cancer or weakness HEENT HEENT: Yes difficulty swallowing; No eye injury, eye surgery, swollen glands or hoarseness Endo Endocrine: No thyroid disease, diabetes mellitus, thyroid cancer, Hair loss, heat intolerance or cold intolerance Skin Skin: No rash or changing moles Breast Breast: No left breast lump, right breast lump, nipple discharge, breast pain, abnormal mammogram, abnormal US or breast enlargement Musc Musculoskeletal: No back problems, arthritis, rheumatoid arthritis, gout or joint pain Cardio Cardiovascular: Yes high blood pressure; No murmur, pacemaker, heart disease, atrial fibrillation, heart attack, heart stent, palpitations, shortness of breat with exertion or chest pain Psych Psychiatric: No depression, anxiety or hearing voices Resp Respiratory: No shortness of breath, Yes sleep apnea, No cough, No COPD, No asthma, No emphysema and No wheezing Gastro Gastrointestinal: No abdominal pain, No nausea or vomiting, No diarrhea, No constipation, No blood in stool, Yes acid reflux, No hemorrhoids, No ulcers, No gallbladder problem and No black,tarry stools Rock Hematologic: No blood thinners, No blood disorders, No bleeding, No anemia and No blood clots Neuro Neurologic: No system reviewed and no additional complaints, except as documented, No as per HPI, No abnormal gait, No abnormal hearing, No abnormal movements, No abnormal speech, No behavioral changes, No burning sensations, No confusion, No convulsions, No disequilibrium, No dizziness, No localized weakness, No frequent falls, No headache(s), No lack of coordination, No loss ofvision, No memory loss, No numbness, No other visual disturbances, No radicular pain, No restless legs, No sensory deficit, No syncope, No tingling, No tremor(s), No weakness and No other Exam Const General: cooperative, healthy appearing, comfortable and no acute distress Nutritional Appearance: average body habitus Orientation: alert and oriented x3 HENMT Head: normal to inspection Eyes General: appearance normal, both eyes and all related structures Neck Neck: normal visual inspection Chest Chest palpation & inspection: normal inspection of the chest Resp Effort & Inspection: normal respiratory effort Auscultation: clear to auscultation bilaterally Cardio Rate: regular rate Rhythm: regular rhythm GI Inspection: normal to inspection Palpation: soft and no hepatosplenomegaly Musc Cervical Spine: normal cervical lordosis Skin General: no rashes or lesions noted Neuro General: patient alert and patient awake Assessment and Plan Assessment and Plan (1) Swallowing difficulty: Status: Chronic Qualifiers: Dysphagia type: unspecified Qualified Code(s): R13.10 - Dysphagia, unspecified Plan: I recommend the patient a esophagogastroduodenoscopy with possible biopsy or polypectomy as indicated. He is aware that previously had squamous papillomas and careful inspection for their presence or recurrence with possible need for biopsy or even polypectomy will be pursued. He is aware of technique, benefit, risk, alternatives. Great care will need to be preserved to avoid bleeding or perforation. He has had an opportunity to ask and have questions answered. Appreciate the ongoing opportunity of assisting with the surgical care. We willschedule procedure at his discretion. Copy: Dr. Emilee Nascimento M.D., F.A.C.s I have examined the patient and the H&P has been reviewed. There are no clinicalchanges since date of exam. Humble Nascimento M.D., F.A.C.S. 04/30/23 0542 <Electronically signed by Humble Nascimento MD> Cosigner Signature (if applicable): CC: Dr. Emilee Maguire MD; Dr. Humble Nascimento MD~ Signed [facility] Work Phone: Hospital course Narrative No data available for this section [facility] Discharge instructions No data available for this section [facility] Discharge instructions Additional Instructions Motrin and Tylenol or Naprosyn and Tylenol for pain. Cool compress and elevate. Silver Silvadene cream applied in the morning and evening. Follow-up with your doctor return if you develop a fever or looks infected which would be red and hot. Do not intentionally tear off the skin or open up the blisters.[facility] Work Phone: Reason for referral (narrative)No reason for referral information availableWOhio [facility] Work Phone: Summary Purpose Family History No Family History Records Found Relationship Condition Age at Onset Recorded Date/T isabelle father Cardiac disease Unknown Hypertension Unknown High blood cholesterol Unknown Disorder of intestine Unknown Depression Unknown Myocardial infarction 62 mother High blood cholesterol Unknown Arthritis Unknown grandmother Malignant neoplasm Unknown Relationship Condition Age at Onset Recorded Date/T isabelle father Cardiac disease Unknown Hypertension Unknown High blood cholesterol Unknown Disorder of intestine Unknown Depression Unknown Myocardial infarction 64 History of coronary artery bypass surgery 64 mother High blood cholesterol Unknown Arthritis Unknown grandmother Malignant neoplasm Unknown brother Myocardial infarction Unknown Advance Directives No Advanced Directives Records Found Advance Directive Response Recorded Date/ Time Advance Directives Yes March 21, 2016 10:46am Living Will Yes March 28 9:13am Power of [place] Yes March 28, 2022 9:13am Advance Directive Response Recorded Date/ Time Name of Medical Power of [place] CATARINA BALDWIN April 11, 2022 11:28am Advance Directives Yes March 21, 2016 9:46am Living Will Yes April 11 11:28am Power of [place] Yes April 11, 2022 11:28am Advance Directive Response Recorded Date/ Time Advance Directives Yes March 21, 2016 10:46am Living Will Yes April 11 12:28pm Power of [place] Yes April 11, 2022 12:28pm Advance Directive Response Recorded Date/ Time Name of Medical Power of [place] ARLENE BALDWIN April 23, 2023 1:07pm Advance Directives Yes March 21, 2016 9:46am Living Will Yes April 23, 2 023 1:07pm Power of [place] Yes April 23, 2023 1:07pm Advance Directive Response Recorded Date/ Time Advance Directives Yes March 21, 2016 9:46am Living Will No May 27, 2 023 9:14pm Power of [place] No May 27, 2023 9:14pm Name of Medical Power of [place] ARLENE BALDWIN April 23, 2023 1:07pm Advance Directive Response Recorded Date/ Time Name of Medical Power of [place] ARLENE BALDWIN April 23, 2023 1:07pm Name of Medical Power of [place] , Arlene Baldwin June 01, 2023 8:09pm Advance Directives Yes March 21, 2016 9:46am Living Will Yes June 01, 2 023 8:09pm Power of [place] Yes June 01, 2023 8:09pm Advance Directive Response Recorded Date/ Time Living Will Yes June 01, 2 023 9:09pm Power of [place] Yes June 01, 2023 9:09pm Advance Directives Yes March 21, 2016 10:46am Advance Directive Response Recorded Date/ Time Advance Directives Yes March 21, 2016 10:46am Chief Complaint and Reason for Visit Chief Complaint 3 M FU 1 Y FU SURGERY CLEARANCE - PPW RECIEVED / 3 M FU OSTEOARTHRITIS RIGHT KNEE *OLIVER PROTOCOL* COVID TEST FOR TRAVEL Reason for Visit Generalized anxiety disorder Hyperlipidemia Hypertension COVID-19 vaccine series completed Obstructive sleep apnea BPH (benign prostatic hyperplasia) Generalized anxiety disorder Hypertension Right knee pain Hypertension Encounter for screening for COVID-19 Chief Complaint 1 Y FU SURGERY CLEARANCE - PPW RECIEVED / 3 M FU OSTEOARTHRITIS RIGHT KNEE *OLIVER PROTOCOL* COVID TEST FOR TRAVEL RT TOTAL KNEE ROBOT RT TOTAL KNEE ROBOT RT TOTAL KNEE ROBOT Reason for Visit COVID-19 vaccine ser ies completed Obstructive sleep apnea BPH (benign prostatic hyperplasia) Generalized anxiety disorder Hypertension Right knee pain Hypertension Encounter for screening for COVID-19 Status post total right knee replacement Chief Complaint RIGHT MID/LOW BACK 4 M FU Reason for Visit Strain of fascia of lower back Generalized anxiety disorder Hyperlipidemia Hypertension Chief Complaint 1 Y FU 4 m fu Dysphagia, unspecified Dysphagia Reason for Visit Obstructive sleep ap hayley Generalized anxiety disorder Hyperlipidemia Hypertension Swallowing difficulty Swallowing difficulty Chief Complaint 1 Y FU 4 m fu Dysphagia, unspecified Dysphagia LEFT FOOT Reason for Visit Obstructive sleep ap hayley Generalized anxiety disorder Hyperlipidemia Hypertension Swallowing difficulty Swallowing difficulty Chief Complaint 1 Y FU 4 m fu Dysphagia, unspecified Dysphagia LEFT FOOT [facility] FU Wound check Reason for Visit Obstructive sleep ap hayley Generalized anxiety disorder Hyperlipidemia Hypertension Swallowing difficulty Swallowing difficulty Second degree burn Chief Complaint Admit Date CONGESTION/COUGH/GARRIDO May 05, 2024 1 :08pm cough x5 weeks May 05, 2024 1 :41pm 4 M FU July 29, 2024 10:23am Reason for Visit Admit Date Acute bronchitis, unspecified May 052023 1:08pm Screening for cardiovascular condition F ebruary 2024 10:23am GERD (gastroesophageal reflux disease) F ebruary 2024 10:23am Hyperlipidemia July 29, 2024 10:23am Hypertension July 29, 2024 10:23am Chief Complaint Admit Date Encounter for screening for cardiovascul ar disorde August 21, 2024 7:38am L EYELID SWOLLEN September 02, 2024 10:2 1am 3 M FU October 22, 2024 2:07p m ABNORMAL CA SCORE December 07, 2024 1:05p m Reason for Visit Admit Date Blepharitis of left upper eyelid September 022024 10:21am Abnormal screening cardiac CT October 22, 2024 2:07pm BPH (benign prostatic hyperplasia) October 022024 2:07pm GERD (gastroesophageal reflux disease) M ay 2024 2:07pm Hyperlipidemia October 22, 2024 2:07p m Hypertension October 22, 2024 2:07p m Additional Source Comments (unrecognized sect ion and content) No Status Records FoundNo Status Records FoundNo Status Records FoundNo Status Records Found INFORMATION SOURCE (unrecogn ized section and content) DATE CREATED AUTHOR 04/23/2021 [facility] ([place]) DATE CREATED AUTHOR AUTHOR'S ORGANIZ ATION 07/23/2021 [facility] DATE CREATED AUTHOR AUTHOR'S ORGANIZ ATION 08/15/2022 [facility] DATE CREATED AUTHOR AUTHOR'S ORGANIZ ATION 12/11/2024 [facility] Goals (unrecognized section and content) Goals may be documented in a n alternate section Care Teams (unrecognized sec tion and content) Team Status: Active Member Role Status Dates Dr. Emilee Maguire MD Family Provider Active Dr. Emilee Maguire MD Primary Care Provider Active Team Status: Inactive Member Role Status Dates Dr. Emilee Maguire MD Primary Care Chyna alcocer, Attending Provider, Referring Provider Active Team Status: Inactive Member Role Status Dates Dr. Emilee Maguire MD Primary Care Provider, Refer ring Provider Active Steven Muñoz PA, PA Attending Provider Active Team Status: Inactive Member Role Status Dates Dr. mEilee Maguire MD Primary Care Provider Active Dr. Tom Leon MD Attending Provider, Referr ing Provider Active Team Status: Inactive Member Role Status Dates Dr. Emilee Maguire MD Primary Care Provider, Refer ring Provider Active Dr. Nate Jackson MD Attending Provider Active Team Status: Inactive Member Role Status Dates Dr. Emilee Maguire MD Primary Care Provider, Refer ring Provider Active Dr. Humble Nascimento MD Attending Provider Active Team Status: Active Member Role Status Dates Dr. Emilee Maguire MD Primary Care Provider, Refer ring Provider Active Dr. Humble Nascimento MD Attending Provider, Other Prov ider Active Team Status: Inactive Member Role Status Dates Dr. Emilee Maguire MD Primary Care Provider Active Dr. Kris Snyder MD Emergency Provider Active Team Status: Inactive Member Role Status Dates Dr. Emilee Maguire MD Primary Care Provider, Refer ring Provider Active MONIK Weldon Attending Provider Active Team Status: Inactive Member Role Status Dates Dr. Emilee Maguire MD Primary Care Provider Active Dr. Kris Snyder MD Attending Provider, Emergency Pro vider Active Team Status: Inactive Member Role Status Dates Dr. Emilee Maguire MD Primary Care Provider Active Dr. Daniel Drake DO Emergency Provider Active Team Status: Active Member Role Status Dates Dr. Emilee Maguire MD Primary Care Provider Active Team Status: Inactive Member Role Status Dates Dr. Emilee Maguire MD Primary Care Provider Active Start: May 05, 2024 End: May 05, 2024 Dr. Emilee Maguire MD Referring Provider Active Start: May 05, 2024 End: May 05, 2024 MONIK Reyna Attending Provider Active Start: May 05, 2024 End: May 05, 2024 Team Status: Inactive Member Role Status Dates Dr. Emilee Maguire MD Primary Care Provider Active Start: May 05, 2024 End: May 05, 2024 MONIK Reyna Attending Provider Active Start: May 05, 2024 End: May 05, 2024 MONIK Reyna Referring Provider Active Start: May 05, 2024 End: May 05, 2024 Team Status: Inactive Member Role Status Dates Dr. Emilee Maguire MD Primary Care Provider Active Start: July 29, 2024 End: July 29, 2024 Dr. Emilee Maguire MD Attending Provider Active Start: July 29, 2024 End: July 29, 2024 Dr. Emilee Maguire MD Referring Provider Active Start: July 29, 2024 End: July 29, 2024 Team Status: Active Member Role/Relationship Status Dates Dr. Emilee Maguire MD Primary Care Provider Active Team Status: Active Member Role/Relationship Status Dates Dr. Emilee Maguire MD Primary Care Provider Active Start: August 21, 2024 Dr. Emilee Maguire MD Attending Provider Active Start: August 21, 2024 Dr. Emilee Maguire MD Referring Provider Active Start: August 21, 2024 Team Status: Inactive Member Role/Relationship Status Dates Dr. Emilee Maguire MD Primary Care Provider Active Start: September 02, 2024 End: September 02, 2024 Dr. Emilee Maguire MD Referring Provider Active Start: September 02, 2024 End: September 02, 2024 Lamar Taylor PA, PA Attending Provider Active Start: September 02, 2024 End: September 02, 2024 Team Status: Inactive Member Role/Relationship Status Dates Dr. Emilee Maguire MD Primary Care Provider Active Start: October 22, 2024 End: October 22, 2024 Dr. Emilee Maguire MD Attending Provider Active Start: October 22, 2024 End: October 22, 2024 Dr. Emilee Maguire MD Referring Provider Active Start: October 22, 2024 End: October 22, 2024 Team Status: Inactive Member Role/Relationship Status Dates Dr. Emilee Maguire MD Primary Care Provider Active Start: December 07, 2024 End: December 07, 2024 Dr. Emilee Maguire MD Referring Provider Active Start: December 07, 2024 End: December 07, 2024 Dr. Marcus Burrell MD Attending Provider Active Start: December 07, 2024 End: December 07, 2024 FOR RECORDS PERTAINING TO PATIENTS WHO ARE [...] BE BASED ON THE PRIMARY CLINICAL RECORDS. [employer] provides no warranty or guarantee of the accuracy or completeness of information in this document.
[2024-12-23 14:09] LABS: PSA, Free 2.39 ng/mL; PSA, Free % 25.2 % (.); PSA, Total Ultrasensitive 9.480 ng/mL (0.000-4.000)
== END | disposition home or self-care (01) ==
LOC: LAB 09:44
PROVIDERS: PCP Internal Medicine; Referring Provider Nurse Practitioner; Visit Provider Nurse Practitioner
DX: R97.20 Elevated prostate specific antigen [PSA] (principal); I10 Essential (primary) hypertension; E78.5 Hyperlipidemia, unspecified
CPT/HCPCS: 36415; 80053; 80061; 84153; 84154; 85025

== ENCOUNTER 2025-01-11 13:40 | Emergency (ER) | payer MEDICARE, SELFPAY ==
[2025-01-11] VITALS (20 sets, daily range): BP systolic 114–135; BP diastolic 55–87; PULSE 61–76; RESP 12–26; TEMP 35.7–36.6; O2SAT 88–98; BMI 28.8
--- NOTE | 2025-01-11 14:06 | EKG12_ITS ---
Test Reason : TRAUMA Blood Pressure : */* mmHG Vent. Rate : 61 BPM Atrial Rate : 61 BPM P-R Int : 150 ms QRS Dur : 96 ms QT Int : 412 ms P-R-T Axes : 44 3 -10 degrees QTcB Int : 414 ms Normal sinus rhythm Normal ECG Confirmed by Marcus Burrell ([id number]), communications editor LUCIEN CALL ([id number]) on 01/12/2025 11:41:03 AM Referred By: Confirmed By: Marcus Burrell
--- NOTE | 2025-01-11 14:06 | EKG12_ITS ---
Test Reason : TRAUMA Blood Pressure : */* mmHG Vent. Rate : 61 BPM Atrial Rate : 61 BPM P-R Int : 150 ms QRS Dur : 96 ms QT Int : 412 ms P-R-T Axes : 44 3 -10 degrees QTcB Int : 414 ms Normal sinus rhythm Normal ECG Confirmed by Marcus Burrell ([id number]), editorial writer LUCIEN CALL ([id number]) on 01/12/2025 11:41:03 AM Referred By: Confirmed By: Marcus Burrell
--- NOTE | 2025-01-11 14:07 | CT_ITS ---
PROCEDURE: BRAIN/HEAD WITHOUT CONTRAST 01/11/2025 REASON FOR EXAM: TRAUMA TECHNIQUE: BRAIN/HEAD WITHOUT CONTRAST Coronal and Sagittal reconstruction series were provided. One or more dose reduction techniques were used (e.g., Automated exposure control, adjustment of the mA and/or kV according to patient size, use of iterative reconstruction technique. RADIATION DOSE SUMMARY: CTDlvol: - mGy DLP: - mGycm COMPARISON: None. FINDINGS: Brain: Low density in the periventricular white matter suggests mild chronic small vessel ischemic changes. No acute territorial infarction. No acute intracranial hemorrhage. No mass-effect or midline shift. CSF Spaces: Mild generalized cerebral atrophy Sinuses/Mastoids: Clear at visualized levels Bones: No acute bony abnormalities. CT/Brain/Head without Contrast IMPRESSION: No acute intracranial abnormalities. Reading Location: [facility]
--- NOTE | 2025-01-11 14:07 | CT_ITS ---
PROCEDURE: SPINE CERVICAL WITHOUT CONTRAS 01/11/2025 REASON FOR EXAM: TRAUMA TECHNIQUE: SPINE CERVICAL WITHOUT CONTRAS Coronal and Sagittal reconstruction series were provided. One or more dose reduction techniques were used (e.g., Automated exposure control, adjustment of the mA and/or kV according to patient size, use of iterative reconstruction technique. RADIATION DOSE SUMMARY: CTDlvol: 26.5 mGy DLP: 4364.06 mGycm COMPARISON: None. FINDINGS: Alignment: Normal alignment. Vertebrae: No acute bony abnormalities. Soft Tissues: No soft tissue abnormalities. Disc levels: Multilevel degenerate changes without significant canal stenosis. CT/Spine Cervical without Contras IMPRESSION: No acute injury to the cervical spine. Reading Location: [id number]
--- NOTE | 2025-01-11 14:07 | CT_ITS ---
PROCEDURE: BRAIN/HEAD WITHOUT CONTRAST 01/11/2025 REASON FOR EXAM: TRAUMA TECHNIQUE: BRAIN/HEAD WITHOUT CONTRAST Coronal and Sagittal reconstruction series were provided. One or more dose reduction techniques were used (e.g., Automated exposure control, adjustment of the mA and/or kV according to patient size, use of iterative reconstruction technique. RADIATION DOSE SUMMARY: CTDlvol: - mGy DLP: - mGycm COMPARISON: None. FINDINGS: Brain: Low density in the periventricular white matter suggests mild chronic small vessel ischemic changes. No acute territorial infarction. No acute intracranial hemorrhage. No mass-effect or midline shift. CSF Spaces: Mild generalized cerebral atrophy Sinuses/Mastoids: Clear at visualized levels Bones: No acute bony abnormalities. CT/Brain/Head without Contrast IMPRESSION: No acute intracranial abnormalities. Reading Location: [facility]
--- NOTE | 2025-01-11 14:07 | CT_ITS ---
PROCEDURE: SPINE CERVICAL WITHOUT CONTRAS 01/11/2025 REASON FOR EXAM: TRAUMA TECHNIQUE: SPINE CERVICAL WITHOUT CONTRAS Coronal and Sagittal reconstruction series were provided. One or more dose reduction techniques were used (e.g., Automated exposure control, adjustment of the mA and/or kV according to patient size, use of iterative reconstruction technique. RADIATION DOSE SUMMARY: CTDlvol: 26.5 mGy DLP: 4364.06 mGycm COMPARISON: None. FINDINGS: Alignment: Normal alignment. Vertebrae: No acute bony abnormalities. Soft Tissues: No soft tissue abnormalities. Disc levels: Multilevel degenerate changes without significant canal stenosis. CT/Spine Cervical without Contras IMPRESSION: No acute injury to the cervical spine. Reading Location: [id number]
--- NOTE | 2025-01-11 14:07 | CT_ITS ---
PROCEDURE: CT CHEST, ABD, PEL W/CONTRAST 01/11/2025 REASON FOR EXAM: FALL FROM LADDER Left-sided pain. TECHNIQUE: Chest, abdomen and pelvis CT with intravenous contrast. Coronal and Sagittal reconstruction series were provided. One or more dose reduction techniques were used (e.g., Automated exposure control, adjustment of the mA and/or kV according to patient size, use of iterative reconstruction technique. PATIENT PREPARATION: Per protocol ORAL CONTRAST TYPE: None. CONTRAST: Isovue-300 VOLUME: 100mL RADIATION DOSE SUMMARY: CTDlvol: 914.22 mGy DLP: 551.27 mGycm COMPARISON: None FINDINGS: CT CHEST: Hardware: None Lymph nodes: None Heart and Vasculature: No significant coronary artery calcification is seen. Lungs and Airways: There is evidence of contusion in the left lower lobe. Mild atelectasis in the right lower lobe. Pleura: Small right pleural effusion. There is evidence of subcutaneous air overlying the left hemithorax especially laterally and inferiorly. No evidence of pneumothorax. Bones: Nondisplaced fractures of the 5th 6th and 7th ribs. Degenerative changes of the thoracic spine. Findings suggestive of hemangioma of the T10 and T12 vertebrae. CT ABDOMEN/PELVIS: Liver: Unremarkable Gallbladder: Small layering gallstones. Spleen: Normal size. Pancreas: Normal size without evidence of mass surrounding inflammation or ductal dilation. Adrenals: Unremarkable Kidneys: 1 cm cyst in the upper lateral aspect of the left kidney. 1 cm cyst in the upper pole of the right kidney. There is also evidence of a 4.8 cm cyst in the lateral inferior pole of the right kidney. Bladder: Unremarkable Bowel: Colonic diverticulosis without diverticulitis. Appendix: The appendix is not identified. There is no inflammatory process identified in the right lower quadrant to suggest appendicitis. Lymph nodes: Unremarkable. Vasculature: Mild diffuse atherosclerotic calcifications are noted. Peritoneum / Retroperitoneum: Unremarkable Bones: Degenerative changes of the spine. Grade 1 anterior listhesis of L5 on S1 due to spondylolysis of the pars interarticularis of the L5 vertebrae. Status post bilateral total hip replacement. CT/CT Chest, Abd, Pel w/Contrast IMPRESSION: Nondisplaced fractures of the right 5th 6th and 7th ribs with evidence of small amount of subcutaneous emphysema overlying the left lateral chest wall. Findings suggestive of pulmonary contusion at the left lung base. Atelectasis at the right lung base. Bilateral renal cysts. Gallstones. Reading Location: [facility]
--- NOTE | 2025-01-11 14:14 | ED.VIS.FALL ---
HPI HPI - Fall History of Present Illness Chief Complaint: Trauma Narrative Narrative: Chief complaint and HPI: Fall from ladder. 69-year-old male with past medical history of HTN, HLD, GERD presents for evaluation after fall from ladder. Patient states that he was on a 6 to 8 foot ladder trimming trees when a branch accidentally hit his ladder. He states he fell with the left side landing onto the ladder. Denies LOC. States that he ambulated after the incident. found him sitting complaining of left-sided chest and abdominal pain and brought him to the emergency department. Not on blood thinners. He endorses left-sided chest and abdominal pain as well as shortness of breath. Endorses left foot pain. Denies any headache, neck pain, back pain numbness or tingling. Review of systems: See HPI Medications: As listed on the chart Allergies: As listed on the chart PFSH: Per chart Vital signs: As listed on the chart. Reviewed. Physical exam: Gen: A&O x3 Head: Normocephalic, atraumatic Eyes: No sclera icterus, conjunctiva clear, PERRL, EOMI ENT: TMs clear BL, moist mucous membranes, no swelling/lacerations/blood in the mouth or the nares, No nasal septal hematoma, no facial tenderness Neck: Trachea midline, No JVD, Nontender, c-collar in place CV: RRR, no murmurs, tender to palpation in the left lateral chest Resp: Lungs CTA BL, no w/r/c GI: Abd soft, non-distended, tender to palpation in the left upper lateral abdomen/flank, no r/r/g Musc: Full ROM, no deformity, no spinal TTP, no renae step-offs, mild tenderness to palpation of the left foot diffusely with mild ecchymosis, radial/DP/PT pulses +2 bilaterally, good capillary refill Skin: Warm, dry, abrasions to the left lateral chest and abdomen as well as thoracic back Neuro: Alert, oriented, grossly intact, sensation intact, GCS 15 Psych: Cooperative, appropriate mood and affect [facility] Medical History Abnormal screening cardiac CT Blepharitis of left upper eyelid Screening for cardiovascular condition Acute bronchitis, unspecified Health care maintenance Foot pain, bilateral Chronic neck pain Swallowing difficulty Generalized anxiety disorder Wears glasses Alcohol use Prostate disease High cholesterol Gastric reflux Non-smoker CPAP (continuous positive airway pressure) dependence History of edema Hypertension History of fracture of clavicle Preoperative evaluation to rule out surgical contraindication Flu vaccine need COVID-19 vaccine series completed Right knee pain Right shoulder pain Localized swelling of abdominal wall Gastroenteritis Low testosterone Right knee meniscal tear Elevated BP without diagnosis of hypertension Diastasis recti Ventral incisional hernia without obstruction or gangrene GERD (gastroesophageal reflux disease) Arthritis Obstructive sleep apnea BPH (benign prostatic hyperplasia) Cardiac dysrhythmia Cor athrscl-uns vessel High cholesterol Home Medications ?Medication ?Instructions ?Recorded ?Last Taken ?Type amlodipine 10 mg tablet 10 mg PO QHS #90 tabs 09/14/24 01/10/25 Rx famotidine 20 mg tablet 20 mg PO BID #180 tabs 09/14/24 01/11/25 Rx rosuvastatin 5 mg tablet 5 mg PO QHS #90 tabs 09/21/24 01/10/25 Rx omeprazole 40 mg capsule,delayed 40 mg PO DAILY #90 caps 09/28/24 01/10/25 Rx release aspirin 81 mg tablet,delayed 81 mg PO QDAY 12/07/24 01/11/25 History release (Adult Aspirin Regimen) hydroxyzine HCl 25 mg tablet 12.5 mg PO DAILY PRN 12/07/24 Unknown History chlorthalidone 25 mg tablet 12.5 mg (1/2 x 25 mg) PO DAILY #60 12/28/24 01/11/25 Rx tabs tamsulosin 0.4 mg capsule 0.4 mg PO QHS 01/11/25 01/06/25 History Allergy/AdvReac Type Severity Reaction Status Date / Time atorvastatin calcium (From AdvReac Other Verified 01/11/25 13:41 Lipitor) Family History Father Heart disease Hypertension High cholesterol Bowel disease Depression Myocardial infarction, Onset Age: 62 Hx of CABG, Onset Age: 62 Mother High cholesterol Arthritis Grandmother Cancer Brother Myocardial infarction Surgical History History of total right knee replacement Status post total right knee replacement Hx of repair of right rotator cuff S/P right rotator cuff repair History of removal of skin mole History of esophagogastroduodenoscopy (EGD) Hx of colonoscopy History of bilateral hip replacements History of tonsillectomy and adenoidectomy S/P ventral herniorrhaphy (~04/07/18) History of total replacement of both hip joints Social History Smoking Status: Never smoker alcohol intake: current alcohol intake frequency: holidays/special occasions only substance use type: does not use caffeine: Yes what type of physical activity do you participate in: walking, weight training and other frequency: 3-4 times per week EXAM Physical Exam Const Vital Signs: 01/11/25 13:40 01/11/25 13:47 01/11/25 13:54 Temperature 96.3 F L Temperature Source Temporal Pulse Rate 65 61 Respiratory Rate 14 18 Respiratory Effort Short of Breath Splinting Respiratory Depth Shallow Respiratory Pattern Tachypnea Blood Pressure 119/76 Blood Pressure Mean 90 Pulse Ox 98 95 Oxygen Delivery Method Room Air Room Air 01/11/25 14:00 01/11/25 14:10 01/11/25 14:15 Temperature Temperature Source Pulse Rate 64 61 65 Respiratory Rate 19 H 24 H 15 Respiratory Effort Respiratory Depth Respiratory Pattern Blood Pressure 134/70 H 129/68 H 129/68 H Blood Pressure Mean 86 88 88 Pulse Ox 95 94 93 Oxygen Delivery Method Room Air Room Air 01/11/25 14:15 01/11/25 14:15 01/11/25 14:30 Temperature Temperature Source Pulse Rate 62 63 Respiratory Rate 19 H 16 Respiratory Effort Respiratory Depth Respiratory Pattern Blood Pressure 129/68 H 129/68 H Blood Pressure Mean 86 86 Pulse Ox 94 91 Oxygen Delivery Method Room Air 01/11/25 14:45 01/11/25 14:55 01/11/25 14:56 Temperature Temperature Source Pulse Rate 63 68 63 Respiratory Rate 22 H 17 21 H Respiratory Effort Respiratory Depth Respiratory Pattern Blood Pressure 119/74 119/74 Blood Pressure Mean 88 89 Pulse Ox 92 93 93 Oxygen Delivery Method Room Air Room Air 01/11/25 15:00 01/11/25 15:15 01/11/25 15:30 Temperature Temperature Source Pulse Rate 64 68 70 Respiratory Rate 20 H 24 H 22 H Respiratory Effort Respiratory Depth Respiratory Pattern Blood Pressure 127/72 H 121/63 H 125/65 H Blood Pressure Mean 88 81 82 Pulse Ox 92 93 92 Oxygen Delivery Method Room Air Room Air MDM MDM MDM Narrative Medical decision making narrative: 69-year-old male with past medical history of HTN, HLD, GERD presents for evaluation after fall from ladder. Patient states that he was on a 6 to 8 foot ladder trimming trees when a branch accidentally hit his ladder. He states he fell with the left side landing onto the ladder. Denies LOC. States that he ambulated after the incident. He endorses left-sided chest and abdominal pain as well as shortness of breath. Endorses left foot pain. Differential diagnosis includes but is not limited to fracture, contusions, pneumothorax, intra-abdominal trauma, intracranial bleed, cardiac contusion, pulmonary contusion. NS bolus, Zofran, morphine ordered for symptoms. Trauma workup ordered. X-ray of the right foot was personally reviewed and interpreted by me, ED physician. No fracture or dislocation. Radiology in agreement. CT of the brain and cervical spine without any acute traumatic injury. Patient C-spine cleared. CT chest, abdomen, pelvis shows nondisplaced fractures of the left fifth, sixth, seventh ribs with evidence of small amount of subcutaneous emphysema overlying the left lateral chest wall. Findings suggestive of pulmonary contusion at the left lung base. Atelectasis in the right lung base. Bilateral renal cysts. Degenerative changes of the thoracic spine findings suggestive of hemangioma of the T10 and T12 vertebra. Grade 1 anterior listhesis of L5 on S1 due to spondylolisthesis of the [place] and articularis of the L5 vertebral. CBC without leukocytosis. Patient has hemoconcentration of 16.7. Platelets unremarkable. CMP relatively unremarkable except for renal insufficiency with creatinine of 1.33. Baseline is 1.1. Patient receiving NS bolus. No transaminitis. Troponin unremarkable. Alcohol level unremarkable. On reevaluation, patient still endorsing chest pain. He is intermittently tachypneic. 92% on room air. Dilaudid ordered. Patient will warrant transfer to trauma center for observation and pain management. Patient confirmed understanding of the plan. Patient discussed with [facility] ED physician, Dr. Dos Santos. He accepted transfer. Patient and updated the plan and confirmed understanding. Patient now requiring oxygen. He will be monitored in our emergency department until transfer is able to be obtained. Urine and coagulation panel still pending. EKG: Interpreted by me/EM physician: EKG shows normal sinus rhythm without acute ischemic changes heart rate 61 Impression: 1. Fall from height, ladder 2. Left fifth, sixth, seventh rib fractures 3. Left pulmonary contusion 5. Acute hypoxia secondary to #2 and 3 5. Hemangioma of T10 and T12 vertebra 6. Renal insufficiency/dehydration Lab Data Labs: Laboratory Results - last 24 hr 01/11/25 01/11/25 13:48 14:09 WBC 8.8 RBC 5.49 Hgb 16.7 H Hct 46.8 MCV 85.2 MCH 30.4 MCHC 35.7 RDW Std Deviation 40.8 RDW Coeff of Zafar 13.2 Plt Count 333 MPV 9.6 Immature Gran % (Auto) 1.400 H Neut % (Auto) 63.9 Lymph % (Auto) 21.2 [place] % (Auto) 11.7 H Eos % (Auto) 1.5 Baso % (Auto) 0.3 Absolute Neuts (auto) 5.6 Absolute Lymphs (auto) 1.87 Nucleated RBC % 0 Sodium 143 Potassium 3.6 Chloride 102 Carbon Dioxide 26.0 Anion Gap 14 BUN 19 Creatinine 1.33 H Estim Creat Clear Calc 55.73 Est GFR (MDRD) Non-Af 59 L BUN/Creatinine Ratio 14.3 Glucose 109 H Calcium 10.0 Total Bilirubin 0.68 AST 26 ALT 32 Alkaline Phosphatase 107 Troponin T High Sens 10 Total Protein 7.5 Albumin 4.6 Globulin 2.9 Albumin/Globulin Ratio 1.6 Lipase 39 Ethyl Alcohol < 10.1 Radiography Diagnostic Testing: Clinical Impression(s) from Imaging Studies Brain CT 01/11/25 14:07 IMPRESSION: No acute intracranial abnormalities. Reading Location: [id number] Cervical Spine CT 01/11/25 14:07 IMPRESSION: No acute injury to the cervical spine. Reading Location: [id number] Chest/Abdomen/Pelvis CT 01/11/25 14:07 IMPRESSION: Nondisplaced fractures of the right 5th 6th and 7th ribs with evidence of small amount of subcutaneous emphysema overlying the left lateral chest wall. Findings suggestive of pulmonary contusion at the left lung base. Atelectasis at the right lung base. Bilateral renal cysts. Gallstones. Reading Location: [id number] Foot X-Ray 01/11/25 14:30 IMPRESSION: No acute bony abnormalities. Reading Location: [facility] Discharge Plan Triage Chief Complaint: Trauma ED Provider: Gino Bain Dx/Rx/DC Orders Prescriptions: No Action hydroxyzine HCl 25 mg tablet 12.5 mg PO DAILY PRN aspirin [Adult Aspirin Regimen] 81 mg tablet,delayed release (DR/EC) 81 mg PO QDAY tamsulosin 0.4 mg capsule 0.4 mg PO QHS amlodipine 10 mg tablet 10 mg PO QHS Qty: 90 3RF famotidine 20 mg tablet 20 mg PO BID Qty: 180 3RF rosuvastatin 5 mg tablet 5 mg PO QHS Qty: 90 3RF omeprazole 40 mg capsule,delayed release(DR/EC) 40 mg PO DAILY Qty: 90 1RF Patient Comments: alternates chlorthalidone 25 mg tablet 12.5 mg PO DAILY Qty: 60 1RF Primary Care Provider: Mylene Maguire Referrals: Mylene Maguire MD [Primary Care Provider] - Print Language: Chinese
[2025-01-11] MEDS: 0.9% Normal Saline (1000mL) 1,000 ML 999 ML IV (14:15)
[2025-01-11 14:27] LABS: Hematocrit 46.8 % (40-54); Hemoglobin 16.7 g/dL (13.0-16.5); Immature Granulocytes Count 0.120 X10^3/uL (0.0-0.0); Mean Corp Hgb Conc 35.7 g/dL (32-36); Mean Corpuscular Volume 85.2 fL (80-94); Mean Platelet Vol. 9.6 fl (6.2-12.0); NRBC Flagged by Analyzer 0 % (0-5); Platelet Count 333 K/mm3 (150-450); RBC Distribution Width CV 13.2 % (11.6-14.6); RBC Distribution Width SD 40.8 fl (35.1-43.9); Red Blood Count 5.49 M/mm3 (4.6-6.2); White Blood Count 8.8 K/mm3 (4.4-11.0)
--- NOTE | 2025-01-11 14:30 | RAD_ITS ---
PROCEDURE: FOOT MIN 3 VIEWS 01/11/2025 REASON FOR EXAM: TRAUMA TECHNIQUE: FOOT MIN 3 VIEWS Laterality: COMPARISON: None. FINDINGS: Bones: No acute osseous abnormalities. Joints: Unremarkable. Soft tissues: No soft tissue abnormalities. RAD/Foot min 3 Views IMPRESSION: No acute bony abnormalities. Reading Location: [id number]
--- NOTE | 2025-01-11 14:30 | RAD_ITS ---
PROCEDURE: FOOT MIN 3 VIEWS 01/11/2025 REASON FOR EXAM: TRAUMA TECHNIQUE: FOOT MIN 3 VIEWS Laterality: COMPARISON: None. FINDINGS: Bones: No acute osseous abnormalities. Joints: Unremarkable. Soft tissues: No soft tissue abnormalities. RAD/Foot min 3 Views IMPRESSION: No acute bony abnormalities. Reading Location: [id number]
[2025-01-11 15:04] LABS: AST(SGOT) 26 U/L (<=37); Alanine Aminotransfer ALT/SGPT 32 U/L (<=46); Albumin, Serum 4.6 g/dL (3.4-4.8); Alkaline Phosphatase 107 U/L (40-129); Anion Gap 14 (5-15); BUN 19 mg/dL (4-19); BUN/Creat Ratio 14.3 RATIO (10-20); Calcium,Total 10.0 mg/dL (7.6-11.0); Carbon Dioxide 26.0 mmol/L (21.0-32.0); Chloride 102 mmol/L (98-108); Estimated Creatinine Clearance 55.73 ml/min (50-250); Globulin 2.9 g/dL (2.2-4.2); Glucose 109 mg/dL (70-99); Potassium 3.6 mmol/L (3.3-5.1)
[2025-01-11 15:24] LABS: Lipase 39 U/L (13-75); Troponin T High Sensitivity 10 ng/L (<=22)
[2025-01-11 15:32] LABS: Alcohol, Blood (Medical)-Serum < 10.1 mg/dL (<=10.0)
--- NOTE | 2025-01-11 15:48 | PCA ---
PT ACCEPTED AT [facility] DR. VILLALPANDO. LOCAL SQUAD SET UP.
--- NOTE | 2025-01-11 15:48 | PCA ---
PT ACCEPTED AT [facility] DR. VILLALPANDO. LOCAL SQUAD SET UP.
--- NOTE | 2025-01-11 16:22 | ED.RN ---
REPORT CALLED TO [facility], BRUCE. NO FURTHER QUESTIONS BY THE RECEIVING NURSE AT THIS TIME
--- NOTE | 2025-01-11 16:22 | ED.RN ---
REPORT CALLED TO [facility], BRUCE. NO FURTHER QUESTIONS BY THE RECEIVING NURSE AT THIS TIME
[2025-01-11 17:07] LABS: Mucous, Urine 0 SEEN /hpf (<or=2+)
[2025-01-11 17:28] LABS: Partial Thromboplast Time 26.6 Seconds (24.1-36.2); Prothrombin Time (Protime)PT. 12.8 SECONDS (11.7-14.9)
[2025-01-11 18:01] LABS: Color, Urine Yellow (Yellow); Glucose, Dipstick Normal (Normal); Ketone-Dipstick Negative (Negative); Leukocyte Esterase-Dipstick Negative /ul (Negative); Nitrite-Dipstick Negative (Negative); Occult Blood-Urine 10 /ul (Negative); Protein-Dipstick 30 mg/dl (Negative); Specific Gravity, Urine 1.010 (1.002-1.030); Urine Bilirubin Dipstick Negative (Negative)
[2025-01-11 18:31] LABS: Red Blood Cells-Urine 0-5 SEEN /hpf (0-5); Squamous Epithelial Cells - UA 0-5 SEEN /hpf (0-5)
== END 2025-01-11 17:09 | disposition short-term general hospital (02) ==
PROVIDERS: Emergency Provider Surgery; PCP Internal Medicine; Visit Provider Surgery
DX: S22.42XA Multiple fractures of ribs, left side, initial encounter for closed fracture (principal); I10 Essential (primary) hypertension; N28.1 Cyst of kidney, acquired; E78.00 Pure hypercholesterolemia, unspecified; J98.11 Atelectasis; G47.33 Obstructive sleep apnea (adult) (pediatric); Z79.82 Long term (current) use of aspirin; Z79.899 Other long term (current) drug therapy; W11.XXXA Fall on and from ladder, initial encounter
CPT/HCPCS: 70450; 71260; 72125; 73630; 74177; 80053; 81001; 82077; 83690; 84484; 85025; 85610; 85730; 93005; 96361; 96374; 96375; 96376; 99285; Q9967; A4216; J2405